=== PATIENT | female | born 1975 | race African-American/Black ===

== ENCOUNTER 2017-12-16 12:53 | Emergency (ER) | payer BC, SELFPAY ==
--- NOTE | 2017-12-16 15:41 | RAD ---
2 VIEWS CHEST: Date: 12/16/17 COMPARISON: 09/24/11. HISTORY: Cough x2 weeks. FINDINGS: Normal cardiac silhouette. Pulmonary vessels are within normal limits. Costophrenic angles are clear. No consolidation or mass. No pneumothorax or osseous abnormalities. IMPRESSION: No acute cardiopulmonary process. POS: [facility]
== END 2017-12-16 14:13 | disposition home or self-care (01) ==
LOC: SCSER 12:53
DX: J32.9 Chronic sinusitis, unspecified (principal); E66.01 Morbid (severe) obesity due to excess calories; L91.0 Hypertrophic scar; R60.0 Localized edema; I10 Essential (primary) hypertension
CPT/HCPCS: 71046; 94664

== ENCOUNTER 2018-04-23 15:47 | Emergency (ER) | payer SELFPAY ==
[2018-04-23] MEDS ORDERED: Ketorolac Tromethamine 30 MG/ML VIAL ONE (17:50)
== END 2018-04-23 18:10 | disposition home or self-care (01) ==
LOC: ERS 15:47
DX: K02.9 Dental caries, unspecified (principal); K04.7 Periapical abscess without sinus; K04.01 Reversible pulpitis; I10 Essential (primary) hypertension; E66.9 Obesity, unspecified
CPT/HCPCS: 96372; J1885

== ENCOUNTER 2018-11-05 14:08 | Inpatient (IN) | payer MEDICAID, SELFPAY ==
[~2018-11-05 14:08] MED LIST: ISOVUE-370 76%-LOCM 1 ML ONE
[2018-11-05] MEDS ORDERED: Ketorolac Tromethamine 30 MG/ML VIAL ONE (14:32)
[2018-11-05 14:43] LABS: #Lymphocytes 1.2 thou/uL (1.20-3.40); #Monocytes 0.7 thou/uL (0.11-0.59); #Neutrophils 11.8 thou/uL (1.40-6.50); %Basophils 0.2 % (0.0-1.0); %Eosinophils 0.1 % (0.0-10.0); %Lymphocytes 8.7 % (21.0-51.0); %Monocytes 5.3 % (0.0-10.0); %Neutrophils 85.7 % (42.0-75.0); Hemoglobin 11.3 g/dL (12.0-16.0); Mean Corpuscular HGB CONC 29.9 g/dL (32.0-36.0); Mean Corpuscular Hemoglobin 22.1 pg (27.0-31.0); Mean Corpuscular Volume 73.8 fL (78.0-98.0); Mean Platelet Volume 10.8 fL (7.4-10.4); Platelet Count 232 thou/uL (130-400); Red Blood Cell (RBC) Count 5.14 mill/uL (4.20-5.40); White Blood Cell (WBC) Count 13.7 thou/uL (4.8-10.8)
[2018-11-05] MEDS ORDERED: cefTRIAXone\\ROCEPHIN 2 GM VIAL ONE (14:49)
[2018-11-05 15:01] LABS: ALT (SGPT) 13 U/L (8-55); AST (SGOT) 26 U/L (5-34); Albumin 3.2 g/dL (3.5-5.0); Alkaline Phosphatase 72 U/L (40-150); Anion Gap 10 mmol/L (10-20); BUN (Urea Nitrogen) 15 mg/dL (7.0-18.7); Bilirubin, Total 0.8 mg/dL (0.2-1.2); Calc. Creatinine Clearance 0 mL/min (70-130); Calcium 8.2 mg/dL (7.8-10.44); Carbon Dioxide 29 mmol/L (22-29); Chloride 96 mmol/L (98-107); Estimated GFR-MDRD 51; Globulin 5.2 g/dL (2.4-3.5); Glucose 118 mg/dL (70-105); Potassium 3.4 mmol/L (3.5-5.1); Protein, Total 8.4 g/dL (6.0-8.3); Sodium 132 mmol/L (136-145)
[2018-11-05 15:02] LABS: Anisocytosis SLIGHT = 6-15 cells (100X) (0-5/hpf); Hypochromia SLIGHT = 6-15 cells (100X) (0-5/hpf); Microcytosis SLIGHT = 6-15 cells (100X) (0-5/hpf); Platelet Morphology Comment Appears Adequate
[2018-11-05] MEDS ORDERED: Azithromycin 500 MG VIAL ONE (15:12)
[2018-11-05 15:24] LABS: CKMB 1.8 ng/mL (0-6.6)
[2018-11-05] MEDS ORDERED: Fentanyl 100 MCG/2 ML VIAL ONE ×2 (15:28→17:42)
--- NOTE | 2018-11-05 15:44 | RAD ---
CHEST ONE VIEW: 11/05/18 HISTORY: Dyspnea. COMPARISON: Radiograph 12/16/17 FINDINGS: There is extensive opacification throughout both lobes, worse in the right lower lobe. Heart size is enlarged. Layering right pleural effusion. No pneumothorax. IMPRESSION: 1. Extensive air space opacity concerning for multifocal pneumonia. Edema is felt less likely. F ollowup after treatment recommended. 2. Marked cardiomegaly. 3. Given the dense opacification in the right lower lobe, close followup radiographs are recomme nded. POS: [facility]
--- NOTE | 2018-11-05 16:09 | PDOC.FPRHP ---
- History of Present Illness Chief Complaint: SOB and cough History of Present Illness: This is a 43 yo female with a pmh of HTN, presumptive BERNICE, and morbid obesity who resents to the ED with a cc of cough and SOB. Pt states the symptoms started on10/24/18 and she was treated with a course of amoxil with no relief. She states that during this time she had multiple episodes of hemoptysis. She states that nothing made her symptoms better or worse. She reports a central chest pain with some radiation to her back. She reports a fever as high as 104 at home. She also reports nausea, vomiting, and diarrhea that have been ongoing for the last 4 days. ED Course: fentanyl 50mcg NS 2L bolus Rocephin 2 g azithromycin 500mg Toradol 30mg Duoneb x1 - Allergies/Adverse Reactions Allergies Allergy/AdvReac Type Severity Reaction Status Date / Time acetaminophen Allergy Verified 11/04/13 05:03 [From Tylenol-Codeine #3] codeine phosphate Allergy Verified 11/04/13 04:57 [From Tylenol-Codeine #3] Penicillins Allergy Verified 11/04/13 05:04 - Home Medications Medication Instructions Recorded Confirmed Type Calcium Carbonate [Calcium] 500 mg PO DAILY 11/04/13 11/04/13 History Furosemide [Lasix] 20 mg PO DAILY 11/04/13 11/04/13 History Ginseng 100 mg PO BID 11/04/13 11/04/13 History Gluc King/Chondro King A/Vit C/Mn 1 cap PO DAILY 11/04/13 11/04/13 History [Glucosamine 1,500 Complex Capsule] Lisinopril/Hydrochlorothiazide 1 tablet PO DAILY 11/04/13 11/04/13 History [Zestoretic] Henderson-3 Fatty Acids [Fish Oil] 300 mg PO DAILY 11/04/13 11/04/13 History traMADol HCl [Tramadol HCl] 1 tab PO Q4HR PRN 11/05/13 11/05/13 History - History PMHx: HTN, obesity, presumed BERNICE PSHx: BTL FHx: noncontributory Social: Denies PHU - Review of Systems General: reports: fever/chills, fatigue. denies: weight/appetite/sleep changes , night sweats Eyes: denies: eye pain, vision changes ENT: denies: nasal congestion, rhinorrhea Respiratory: reports: cough, shortness of breath Cardiovascular: reports: chest pain. denies: palpitation, edema, paroxysmal nocturnal dyspnea Gastrointestinal: reports: nausea, vomiting, diarrhea, abdominal pain. denies: constipation Genitourinary: denies: incontinence, dysuria Skin: reports: lesions (lesion on her posterior head that bleeds occationally). denies: rashes Musculoskeletal: denies: pain, tenderness Neurological: denies: numbness, syncope Psychological: denies: anxiety, depression - Vital signs BP: 105/61 HR: 94 RR: 23 Tmax: 99.1 Pox: 95% on NRB Wt: 180 kg - Physical Exam Constitutional: awake, alert and oriented, other (moderate respiratory distress , morbidly obese) HEENT: normocephalic and atraumatic, EOMI, MMM, other (fusiform growth on the back of pt head, not ttp, no active bleeding) Neck: FROM, trachea midline, no JVD Chest: no lesions, other (mild tenderness to palpation) Heart: RRR, normal S1/S2, no murmurs/rubs/gallops -Lungs: Diffuse crackles, greater on the right lung soto Abdomen: soft, bowel sounds present, no masses/distention, other (mild ttp) Musculoskeletal: normal structure, ROM grossly normal Neurological: no focal deficit Skin: good turgor, capillary refill <2 seconds Heme/Lymphatic: no unusual bruising or bleeding, no purpura Psychiatric: other (somnolent with brief episodes of unresponsiveness) FMR H&P: Results - Labs Result Diagrams: 11/05/18 14:23 11/05/18 14:23 Lab results: WBC 13.7 thou/uL (4.8-10.8) H 11/05/18 14:23 Hgb 11.3 g/dL (12.0-16.0) L 11/05/18 14:23 Hct 37.9 % (36.0-47.0) 11/05/18 14:23 MCV 73.8 fL (78.0-98.0) L 11/05/18 14:23 Plt Count 232 thou/uL (130-400) 11/05/18 14:23 Neutrophils % 85.7 % (42.0-75.0) H 11/05/18 14:23 Sodium 132 mmol/L (136-145) L 11/05/18 14:23 Potassium 3.4 mmol/L (3.5-5.1) L 11/05/18 14:23 Chloride 96 mmol/L (98-107) L 11/05/18 14:23 Carbon Dioxide 29 mmol/L (22-29) 11/05/18 14:23 BUN 15 mg/dL (7.0-18.7) 11/05/18 14:23 Creatinine 1.37 mg/dL (0.6-1.1) H 11/05/18 14:23 Glucose 118 mg/dL (70-105) H 11/05/18 14:23 Lactic Acid 1.8 mmol/L (0.5-2.2) 11/05/18 14:23 Calcium 8.2 mg/dL (7.8-10.44) 11/05/18 14:23 Total Bilirubin 0.8 mg/dL (0.2-1.2) 11/05/18 14:23 AST 26 U/L (5-34) 11/05/18 14:23 ALT 13 U/L (8-55) 11/05/18 14:23 Alkaline Phosphatase 72 U/L (40-150) 11/05/18 14:23 CK-MB (CK-2) 1.8 ng/mL (0-6.6) 11/05/18 14:23 B-Natriuretic Peptide 678.0 pg/mL (0-100) H 11/05/18 14:23 Serum Total Protein 8.4 g/dL (6.0-8.3) H 11/05/18 14:23 Albumin 3.2 g/dL (3.5-5.0) L 11/05/18 14:23 - Radiology Interpretation CT scan - chest Status: report reviewed by me (1. Markedly suboptimal evaluation due to body habitus, beam attenuation, poor timing of contrast bolus and motion degradation. 2. Bilateral groundglass opacities with perihilar and lower lobe consolidation with associated air bronchograms. Correlate for edema versus atypical infection. 3. No obvious pulmonary arterial embolism involving the central pulmonary arteries. Remainder of the pulmonary arterial system cannot be adequately assessed) Chest x-ray Status: image reviewed by me, report reviewed by me (extensive air space opacity concerning for multifocal pna. Marked cardiomegaly) FMR H&P: A/P - Problem List (1) Sepsis Current Visit: Yes Status: Acute Code(s): A41.9 - SEPSIS, UNSPECIFIED ORGANISM (2) CAP (community acquired pneumonia) Current Visit: Yes Status: Acute Code(s): J18.9 - PNEUMONIA, UNSPECIFIED ORGANISM (3) Elevated brain natriuretic peptide (BNP) level Current Visit: Yes Status: Acute Code(s): R79.89 - OTHER SPECIFIED ABNORMAL FINDINGS OF BLOOD CHEMISTRY (4) Respiratory acidosis Current Visit: Yes Status: Acute Code(s): E87.2 - ACIDOSIS (5) BERNICE (obstructive sleep apnea) Current Visit: Yes Status: Acute Code(s): G47.33 - OBSTRUCTIVE SLEEP APNEA ( ADULT) (PEDIATRIC) (6) CHERI (acute kidney injury) Current Visit: Yes Status: Acute Code(s): N17.9 - ACUTE KIDNEY FAILURE, UNSPECIFIED - Plan This is a 43 yo female with a pmh of HTN, presumptive BERNICE, and morbid obesity Sepsis 2/2 CAP with acute hypoxic, hypercapnic respiratory failure -Admit to IMCU -Maintain O2 sats -S/p 2L NS, continue fluids to maintain BP -Obtain ABG -WBC elevated -Broad spectrum abx (/) -CTA negative for large PE -Pending Urine strep and legionella -Negative procal Elevated troponin -Likely demand ischemia, will trend CHERI -Likely 2/2 sepsis, will trend with BMP -IVFs Hyponatremia -Atypical pna vs edema Hypokalemia -Replace and monitor Code: Full Prophylaxis: Lovenox and pepcid Family: father at bedside, plan discussed with him Diet: NPO Disposition: home in 3-4 days PCP: pt reports [facility] FMR H&P: Upper Level - Pertinent history Pt is a 43 yo F w/ PMH of HTN HLD and morbid obesity who presents w/ 10 day h/o productive cough and fever reported up to 104 at home. Pt received amoxicillin and albuterol OP for presumed bronchitis vs CAP; however, had no resolution of symptoms. She reports associated hemoptysis, pleuritic type chest pain, NV and dneies diarrhea constipation. Denies URI type symptoms. She received rocephin and azithromycin in the ED in addition to 2L NS. ROS: Pertienent positives and negatives listed above, for complete ROS see equine intern documentation. - Pertinent findings PE: Gen: mild distress, febrile HEENT: NCAT, large keloid posterior head CV: Tachycardic, regular rhythm, distant heart sounds Lungs: Expiratory wheezes throughout with crackles in b/l lower lobes in addition to rt middle lobe, mildly increased WOB Abd: BSX4, NTND, no rebound guarding or rigidity Extremities: No edema, no clubbing, no cyanosis Neuro: No focal deficit Psych: Alert, cooperative - Plan Date/Time: 11/05/18 1608 ICasey, DO, have evaluated this patient and agree with findings/ plan as outlined by equine intern resident. Pertinent changes/additions are listed here. 1) Sepsis 2/2 CAP: pt hase elevated WBC w/ left shift and ct scan/CXR suggestive of multifocal pneumonia. RR >20, HR> 90. Will admit to IMCU and obtain blood gas. Pt is currently requiring 4L NC to maintain saturations. Procalcitonin negative raising concern of atypical pna. Will provide atypical coverage with azithromycin in addition to vanc and zosyn 2/2 previous abx use. Check ur strep and legionella Ag. Of note pt had an elevated D dimer and subsequent ct angio which showed no evidence of PE. 2) Elevated troponin: this is likely 2/2 demand ischemia from her sepsis, will trend. echo pending. EKG showed sinus tach, otherwise normal. 3) Elevated BNP: likely failure 2/2 longstanding HTN. Will order echo. 4) CHERI: pt cr increased compared to prior, likely 2/2 sepsis. Pt given 2LNS in ED and currently on 250mls/hr NS. Continue IVF resuscitation and trend BMP 4) Hyponatremia: - possibly 2/2 atypical pneumonia vs edema 5) Hypokalemia: mild, replace. Check mag GI PPX: Pepcid DVT PPX: Lovenox Code status: full Dispo: serious, will cont broad spectrum abx and IVF resuscitation. Blood cultures pending. ABG pending.
--- NOTE | 2018-11-05 16:42 | CT ---
FExam: CT angiogram of the chest HISTORY: Dyspnea COMPARISON: None TECHNIQUE: CT angiogram of the chest is performed in the axial plane. Three-dimensional reformatted i mages are submitted for interpretation FINDINGS: Mediastinum: No mass, lymphadenopathy or hematoma. HEART: Normal size. No significant pericardial fluid. Aorta: Grossly unremarkable. No evidence of aneurysm or dissection. Upper solid abdominal viscera: Grossly unremarkable. Limited evaluation. Trachea and central bronchi: Patent Pleural spaces: No effusion Lung parenchyma: Bilateral groundglass opacities along with consolidation with air bronchograms in th e perihilar and lower lobe distribution (right greater than left). Correlate for edema versus infecti on. Pneumothorax: None Osseous structures: No lytic or blastic lesions Pulmonary arteries:Markedly suboptimal evaluation due to body habitus and timing of contrast bolus. A dequate central pulmonary arterial opacification. No filling defect in the central arteries. The loba r, segmental and subsegmental arteries cannot be adequately assessed. IMPRESSION: 1. Markedly suboptimal evaluation due to body habitus, beam attenuation, poor timing of contrast juana us and motion degradation. 2. Bilateral groundglass opacities with perihilar and lower lobe consolidation with associated air b ronchograms. Correlate for edema versus atypical infection. 3. No obvious pulmonary arterial embolism involving the central pulmonary arteries. Remainder of the pulmonary arterial system cannot be adequately assessed.
[2018-11-05 17:02] LABS: Actual Bicarbonate (HCO3a) 26.2 mEq/L (22-28); Base Excess (BEa) -2.6 mEq/L (-2.0 to +3.0); Calcium, Ionized 1.04 mmol/L (1.12-1.30); Carboxyhemoglobin (COHb) 1.4 gm% (0.0-3.0); Hemoglobin (Hb) 11.4 g/dL (12.0-16.0); O2 Tension (PaO2) 82.2 mmHg (80.0-100.0); Potassium - ABG Lab 3.55 mmol/L (3.70-5.30)
[2018-11-05] MEDS ORDERED: Acetaminophen 325 MG TAB PO PRN (17:04)
[2018-11-05] MEDS ORDERED: Ondansetron ODT 4 MG TAB PO PRN (17:04)
[2018-11-05] MEDS ORDERED: Ondansetron PF 4 MG/2 ML Vial IVP PRN (17:04)
[2018-11-05 17:09] LABS: pH, Arterial 7.21 (7.35-7.45)
[2018-11-05 17:11] LABS: ALV-art Gradient 547.675 (0-20); CO2 Tension 66.5 mmHg (35.0-45.0); Puncture Site RRA
[2018-11-05] MEDS ORDERED: CCU Electrolyte Replacement 1 EACH FS ONE (17:31)
[2018-11-05] MEDS ORDERED: Ventilator Sedation Protocol 1 EACH FS ONE (17:31)
[2018-11-05] MEDS ORDERED: DISCONTINUE PREVIOUS NARCOTIC PAIN MEDICATIONS AND BENZODIAZEPINES FS SCH (17:37)
[2018-11-05] MEDS ORDERED: Morphine 2 MG/ML SYRINGE SLOW IVP PRN (17:37)
[2018-11-05] MEDS ORDERED: Fentanyl BOLUS 250 ML IVPB PRN (17:37)
[2018-11-05] MEDS ORDERED: Potassium Phosphate 15 MMOL in Sodium Chloride 0.9% 250 ML 250 ML IV PRN (17:38)
[2018-11-05] MEDS ORDERED: Potassium Chloride 40 MEQ in Sodium Chloride 0.9% 250 ML 250 ML IVPB PRN (17:38)
[2018-11-05] MEDS ORDERED: PHOS-NAK 1 PKT PACK PO PRN ×2 (17:38)
[2018-11-05] MEDS ORDERED: Potassium Chloride 40 MEQ in Premix Bag 1 BAG IVPB PRN (17:38)
[2018-11-05] MEDS ORDERED: Potassium Phosphate 12 MMOL in Sodium Chloride 0.9% 250 ML 250 ML IV PRN (17:38)
[2018-11-05] MEDS ORDERED: CCU ELECTROLYTE REPLACEMENT PROTOCOL FS PRN (17:38)
[2018-11-05] MEDS ORDERED: Potassium Phosphate 9 MMOL in Sodium Chloride 0.9% 100 ML IVPB PRN (17:38)
[2018-11-05] MEDS ORDERED: Magnesium 2 GM/50 ML 2 GM in Premix Bag 1 BAG IVPB PRN (17:38)
[2018-11-05] MEDS ORDERED: Potassium Chloride 20 MEQ TAB PO PRN (17:38)
[2018-11-05] MEDS ORDERED: Magnesium Oxide 400 MG TAB PO PRN ×2 (17:38)
[2018-11-05] MEDS: Propofol 1,000 MG/100 ML VIAL IV PRN ×2 (17:49→21:40)
[2018-11-05] MEDS ORDERED: Vecuronium 10 MG VIAL IVP PRN (18:13)
[2018-11-05] MEDS: Piperacillin/Tazobactam 3.375 GM in Sodium Chloride 0.9% 100 ML IVPB SCH ×2 (18:30→23:53)
[2018-11-05] MEDS: Sodium Chloride 0.9% 1,000 ML IV SCH ×2 (18:38→23:18)
--- NOTE | 2018-11-05 18:54 | PDOC.EVN ---
Event Note - Event Note Event Note: Pt ABG showed acute hypercapnic respiratory failure and BiPAP was started. Pt subsequently became somnolent and difficult to arouse in IMCU, as such decision was made to intubate and transfer to ICU. She was placed on VC ventilation @ 500mL with pSupp of 15, PEEP 5 and FiO2 40%, saturations increased to 95%. Sedation with propofol as BP tolerates.
[2018-11-05 19:09] LABS: Actual Bicarbonate (HCO3a) 25.1 mEq/L (22-28); Base Excess (BEa) -1.2 mEq/L (-2.0 to +3.0); CO2 Tension 49.3 mmHg (35.0-45.0); Calcium, Ionized 1.03 mmol/L (1.12-1.30); Carboxyhemoglobin (COHb) 1.1 gm% (0.0-3.0); Hemoglobin (Hb) 11.1 g/dL (12.0-16.0); O2 Tension (PaO2) 121.8 mmHg (80.0-100.0); Potassium - ABG Lab 3.69 mmol/L (3.70-5.30); pH, Arterial 7.33 (7.35-7.45)
[2018-11-05 19:10] LABS: Puncture Site LRADIAL
[2018-11-05 19:11] LABS: ALV-art Gradient 529.575 (0-20)
[2018-11-05 20:05] LABS: HIV (1/2) Antibody/Antigen Non-Reactive (NonReactive); HIV 1/2 INDEX 0.14 S/CO (<1.00)
[2018-11-05] MEDS: Enoxaparin Sodium 40 MG/0.4 ML SYRINGE SC SCH (21:35)
[2018-11-05] MEDS: Famotidine/PF 20 mg/2ml Vial SLOW IVP SCH (21:36)
--- NOTE | 2018-11-05 21:44 | PDOC.EVN ---
Event Note - Event Note Event Note: Attending Note Patient seen by Dr Dixon later this afternoon at time of admission to [facility]. Patient subsequently intubted and transferred to ICU. Patient seen and examined. She is stable on vent currently. Care reviewed with Nurse and RT.
--- NOTE | 2018-11-05 22:30 | CON ---
DATE OF CONSULTATION: 11/05/2018 CONSULT PHYSICIAN: [facility]. REASON FOR CONSULTATION: Bilateral pneumonia and acute hypoxic respiratory failure. HISTORY OF THE PRESENT ILLNESS: The patient is a 43-year-old female who presented to the emergency room earlier today with total body aches, fever up to 104, diarrhea, cough and congestion. She was apparently doing okay in the ER initially. However, there is a note that she was on 100% non-rebreather by the time she was transferred from the ER up to the IMCU. I was called to see her when she was in the IMCU. The residents had gotten a blood gas, which showed hypercapnia and hypoxemia. At that time, I requested that the patient be emergently moved to the CCU. When I arrived a few minutes later, the patient was still in the IMCU. She would awaken, but was not very conversant. Within 5 minutes of me being on the floor, she had a spell where she desaturated down into the 70s and her eyes rolled back in her head, although she quickly regained consciousness after that. We then moved her down to the CCU where I intubated her emergently with the bronchoscope. PAST MEDICAL HISTORY: 1. Hypertension. 2. Obesity. PAST SURGICAL HISTORY: Tubal ligation. PSYCHIATRIC HISTORY: Unremarkable. SOCIAL HISTORY: The patient does not drink alcohol, apparently does not smoke. Does not use illicit drugs. FAMILY MEDICAL HISTORY: Unknown. ALLERGIES: APPARENTLY CODEINE CAUSES ISSUES. PENICILLIN HAS BEEN REPORTED CAUSING HIVES IN THE PAST. HOWEVER, SHE WAS TAKING AMOXICILLIN AN OUTPATIENT WITHOUT ADVERSE EFFECT. HOME MEDICATIONS: 1. Albuterol. 2. Amoxicillin. REVIEW OF SYSTEMS: Cannot be obtained as the patient is currently intubated. PHYSICAL EXAMINATION: VITAL SIGNS: Pulse is 88, blood pressure 128/78, O2 saturation 98% after intubation, respiratory rate 20. This is a morbidly obese female, who is now intubated and sedated. HEENT: She has muddy sclera. Oropharynx has class 4 Mallampati airway. NECK: No adenopathy or JVD. LUNGS: She has coarse breath sounds bilaterally. CARDIAC: S1, S2. Tachycardic. ABDOMEN: Soft, obese, nontender, and nondistended. EXTREMITIES: No clubbing or cyanosis. She has brawny edema throughout. LABORATORY DATA: Sodium 132, potassium 3.4, chloride 96, CO2 of 29, BUN 15, creatinine 1.4, glucose 118, lactate 1.8, AST 26, ALT 13. Troponin 0.126. BNP 678. Procalcitonin 0.24. Albumin 3.2. White blood count of 13.7, hematocrit 37.9, and platelet count 232. D-dimer was 1.28. ABG before intubation, pH 7.21, pCO2 of 66, pO2 of 82 and that was on 100% nonrebreather. IMAGING: CT of the chest shows diffuse bilateral infiltrates predominantly in the lower lobes. She has air bronchograms, concentrate in the right lower lobe. I do not see any filling defects consistent with central pulmonary emboli. Flu test was negative. ASSESSMENT: 1. Acute hypoxic and hypercapnic respiratory failure secondary to bilateral pneumonia. 2. Sepsis syndrome. 3. Morbid obesity. 4. Mild kidney dysfunction, which is acute. 5. Hypoalbuminemia. RECOMMENDATION: This patient was in clear hypoxic and hypercapnic respiratory failure with bilateral pulmonary infiltrates consistent with pneumonia. The hypoxia and pulmonary infiltrates is in itself a contraindication of BiPAP therapy as she has a high risk for decompensation. The patient was brought down to the CCU. I immediately intubated her with a 7.5 endotracheal tube over a bronchoscope. See separate operative note. She has been placed on Zosyn, vancomycin, and Zithromax. She will be on Pepcid for DVT prophylaxis and Lovenox for GI prophylaxis. She may require more copious IV fluids given that she is young and has pneumonia. I think it is prudent to check an HIV test. Follow serial ABGs. The above encompassed 35 minutes critical time. Job ID: [id number]
--- NOTE | 2018-11-06 00:01 | OP ---
DATE OF PROCEDURE: 11/05/2018 PROCEDURE PERFORMED: Bronchoscopy with endotracheal intubation. PREOPERATIVE DIAGNOSES: Respiratory failure with bilateral pulmonary infiltrates. POSTOPERATIVE DIAGNOSES: Respiratory failure with bilateral pulmonary infiltrates. ANESTHESIA: None. DESCRIPTION OF PROCEDURE: The procedure was done on an emergent basis as the patient was impending hypoxic respiratory failure. A bite block was placed in the patient's mouth. A 2.2 Ambu bronchoscope was placed in the patient's oropharynx with endotracheal tube over the bronchoscope. The vocal cords were identified and the scope was passed through the cords. A 7.5 endotracheal tube was then passed into the patient's trachea and secured about 3 cm above the darrell. The patient was then placed on bag endotracheal tube intubation. The scope was replaced into the endotracheal tube. A bronchoalveolar lavage was performed with about 150 mL normal saline in the right middle lobe. This was sent for appropriate studies. Bronchoscopic findings included mild mucus production present in all lobes bilaterally. She had some occasional bloody secretions present in the lower lobes. She had very edematous airways bilaterally. There were no endobronchial lesions noted otherwise. This procedure was tolerated well. Job ID: [id number]
[2018-11-06 00:18] LABS: Troponin I 0.085 ng/mL (< 0.028)
[2018-11-06 01:44] LABS: Legionella Urinary Ag Negative (Negative); Strep pneumo Urine Ag NEGATIVE (NEGATIVE)
[2018-11-06] MEDS: Piperacillin/Tazobactam 3.375 GM in Sodium Chloride 0.9% 100 ML IVPB SCH ×3 (06:07→17:37)
[2018-11-06] MEDS: Propofol 1,000 MG/100 ML VIAL IV PRN ×7 (06:07→22:28)
[2018-11-06] MEDS: Sodium Chloride 0.9% 1,000 ML IV SCH (06:09)
[2018-11-06 06:24] LABS: Anisocytosis SLIGHT = 6-15 cells (100X) (0-5/hpf); Band 31 % (5-11); Hemoglobin 9.9 g/dL (12.0-16.0); Lymphocytes 15 % (21-51); MDiff Complete? YES; Mean Corpuscular HGB CONC 29.9 g/dL (32.0-36.0); Mean Corpuscular Hemoglobin 22.3 pg (27.0-31.0); Mean Corpuscular Volume 74.4 fL (78.0-98.0); Mean Platelet Volume 6.7 fL (7.4-10.4); Monocytes 1 % (0-10); Neutrophil 53 % (42-75); Nucleated RBC 1 % (0); Ovalocytes SLIGHT = 2-5 cells (100X) (0-1/hpf); Platelet Count 189 thou/uL (130-400); Platelet Morphology Comment Appears Adequate; RBC Distribution Width 18.2 % (11.5-14.5); Red Blood Cell (RBC) Count 4.43 mill/uL (4.20-5.40); White Blood Cell (WBC) Count 17.9 thou/uL (4.8-10.8)
[2018-11-06 06:43] LABS: Chloride 102 mmol/L (98-107); Potassium 3.6 mmol/L (3.5-5.1); Sodium 135 mmol/L (136-145)
[2018-11-06 06:44] LABS: Calcium 7.4 mg/dL (7.8-10.44); Glucose 112 mg/dL (70-105)
[2018-11-06] MEDS ORDERED: Lactated Ringer's 1,000 ML IV SCH (06:45)
[2018-11-06 06:46] LABS: Anion Gap 12 mmol/L (10-20); Carbon Dioxide 25 mmol/L (22-29)
[2018-11-06 06:48] LABS: BUN (Urea Nitrogen) 15 mg/dL (7.0-18.7); Calc. Creatinine Clearance 174 mL/min (70-130); Estimated GFR-MDRD 60
[2018-11-06 07:06] LABS: Actual Bicarbonate (HCO3a) 21.7 mEq/L (22-28); Base Excess (BEa) -3.1 mEq/L (-2.0 to +3.0); CO2 Tension 38.2 mmHg (35.0-45.0); Calcium, Ionized 1.05 mmol/L (1.12-1.30); Carboxyhemoglobin (COHb) 0.6 gm% (0.0-3.0); Hemoglobin (Hb) 10.4 g/dL (12.0-16.0); O2 Tension (PaO2) 146.7 mmHg (80.0-100.0); Potassium - ABG Lab 3.39 mmol/L (3.70-5.30); Puncture Site LRA; pH, Arterial 7.37 (7.35-7.45)
[2018-11-06] MEDS ORDERED: Dextrose 5% in Water 1,000 ML IV PRN (07:41)
[2018-11-06] MEDS ORDERED: Dextrose 50% Abboject 50 ML SYRINGE SLOW IVP PRN (07:41)
--- NOTE | 2018-11-06 07:44 | RAD ---
FPortable chest radiograph: 11/06/2018 COMPARISON: 11/05/2018 HISTORY:Pneumonia FINDINGS: New endotracheal tube and nasogastric tube in proper position. Stable prominence of the car diac silhouette. There is dense opacity in the medial left base suggesting left lower lobe consolidat ion/collapse and probable left pleural fluid. Aeration has worsened significantly within the left bas e. Persistent dense airspace disease noted with obscuration of right hemidiaphragm, right heart border, and right costophrenic angle, slightly worsened as well. Probable associated right pleural fluid. IMPRESSION: Worsening bibasilar pleural and parenchymal opacity. New endotracheal tube and nasogastri c tube. Findings may be related to worsening pulmonary edema, infectious pneumonitis, and/or aspirati on.
--- NOTE | 2018-11-06 08:04 | PRG ---
DATE OF SERVICE: 11/06/2018 TIME SPENT: 35 minutes of critical time. SUBJECTIVE: This patient remains intubated on mechanical ventilation. She has remained severely hypoxemic overnight. OBJECTIVE: VITAL SIGNS: Her temperature is 100.3 with a T-max of 101.2, pulse is 78, blood pressure is 102/52, O2 saturation in the high 90s, currently on 45% FiO2 with a PEEP of 12. Intake for 24 hours 2226, output 670. GENERAL: She is intubated and sedated. HEENT: Otherwise unremarkable. NECK: No JVD. LUNGS: Coarse breath sounds with wheezing bilaterally. CARDIAC: S1, S2. Tachycardic. ABDOMEN: Soft, obese, nontender, and nondistended. EXTREMITIES: No clubbing, cyanosis, or edema. LABORATORY DATA: Sodium 135, potassium 3.6, chloride 102, CO2 of 25, BUN 15, creatinine 1.2, glucose 112, calcium 7.4. Troponin 0.085. HIV test was negative. PH of 7.37, pCO2 of 38, pO2 of 146 on SIMV rate 22, tidal volume of 400, PEEP 5, pressure support 10, FiO2 100%. White blood cell count 17.9, hematocrit 33, platelet count 189. Chest x-ray shows bilateral infiltrates right greater than left. ASSESSMENT: 1. Bilateral community-acquired pneumonia. 2. Bronchospasm. 3. Acute hypoxic and hypercapnic respiratory failure, requiring mechanical ventilation. 4. Morbid obesity. 5. Sepsis syndrome. 6. Mild renal azotemia. PLAN: 1. The patient remains critically ill and is in need of continued mechanical ventilation. She is not weanable. 2. I have adjusted mechanical ventilation settings. 3. Add steroids because of bronchospasm. 4. Continue the IV antibiotics. 5. Reduce IV fluids. 6. Initiate enteral tube feeds. 7. DVT prophylaxis with Lovenox. 8. GI prophylaxis with Pepcid or Protonix. Job ID: [id number]
--- NOTE | 2018-11-06 08:32 | HP ---
I examined this patient on 11/05/2018 at approximately 3:45 p.m. in the ER. At that time, her blood pressure was 126/52, pulse rate 94, respirations 16, and her O2 saturation was 100% on a non-rebreather. I discussed the case with Dr. Best and I agree with his assessment and plan. Briefly, Ms. Shetty is a pleasant but obese 43-year-old black female, who presented to the emergency room with cough and history of fever to 104. Our working diagnosis initially was pneumonia. PHYSICAL EXAMINATION: GENERAL: When I examined the patient, she was awake, alert, and speaking in full sentences. EAR, NOSE, AND THROAT: No erythema or exudate. NECK: Supple. CARDIAC: Heart rhythm was regular. No gallop or murmur noted. LUNGS: Breath sounds were diminished, but clear without wheezes. There was no use of accessory muscles. ABDOMEN: Flat and soft. No guarding, rebound, or rigidity noted. EXTREMITIES: Trace edema. No evidence of DVT. LABORATORY DATA: Initially, her CBC; white count was 13,700, hemoglobin 11.3, hematocrit 37.9 with an MCV of 73.8. Chemistries; sodium was 132, potassium 3.4, chloride 96, bicarb 29, BUN 15, and creatinine 1.37. Liver enzymes are normal. Troponin was 0.126. Her BNP was 678. IMAGING DATA: Chest x-ray showed extensive airspace opacity concerning for multifocal pneumonia. There was also a marked cardiomegaly. ASSESSMENT: Pneumonia. PLAN: The patient will be admitted to the MICU. She is currently on a 100% non-rebreather. I am concerned that she may tire and we need to keep close observation on her. She may later need BiPAP or even mechanical ventilation. In the event currently, she is stable on 100% non-rebreather. We will continue to monitor closely. She is currently on her way to x-ray for a CTA of the chest. Job ID: [id number]
[2018-11-06] MEDS: Lactated Ringer's 1,000 ML IV SCH ×2 (08:36→17:38)
[2018-11-06] MEDS: Enoxaparin Sodium 40 MG/0.4 ML SYRINGE SC SCH ×2 (08:47→19:51)
[2018-11-06] MEDS: Famotidine/PF 20 mg/2ml Vial SLOW IVP SCH ×2 (08:47→19:52)
--- NOTE | 2018-11-06 10:22 | PDOC.FM ---
- Subjective Subjective: Pt remains intubated in ICU with FiO2 weaned down to 45%. She is currently sedated. - Objective MAR Reviewed: Yes Vital Signs & Weight: Vital Signs (12 hours) Temp Pulse Resp BP Pulse Ox 11/06/18 08:00 100.6 F H 22 H 99 11/06/18 06:51 73 93/43 L 11/06/18 06:48 77 22 H 99 11/06/18 06:00 22 H 11/06/18 04:00 100.3 F H 22 H 11/06/18 02:14 94 142/88 H 11/06/18 02:00 22 H 11/06/18 00:14 80 22 H 100 11/06/18 00:00 101.2 F H 22 H Weight Weight 180.586 kg Most Recent Monitor Data Heart Rate from ECG 81 NIBP 120/67 NIBP BP-Mean 84 Respiration from ECG 22 SpO2 99 I&O: 11/05/18 11/06/18 11/07/18 06:59 06:59 06:59 Intake Total 2226 Output Total 670 130 Balance 1556 -130 Result Diagrams: 11/06/18 05:11 11/06/18 06:15 Phys Exam - Physical Examination Constitutional: NAD HEENT: moist MMs ET and OG tube in place trach midline, ET tube in place, morbidly obese expiratory wheezes through ant crackles in b/l bases Cardiovascular: RRR, no significant murmur Gastrointestinal: soft, non-tender, no distention Morbidly obese Musculoskeletal: no edema, pulses present sedated Skin: no rash, cap refill <2 seconds Dx/Plan (1) Acute respiratory failure with hypoxia and hypercapnia Code(s): J96.01 - ACUTE RESPIRATORY FAILURE WITH HYPOXIA; J96.02 - ACUTE RESPIRATORY FAILURE WITH HYPERCAPNIA Status: Acute (2) Sepsis Code(s): A41.9 - SEPSIS, UNSPECIFIED ORGANISM Status: Acute (3) CHERI (acute kidney injury) Code(s): N17.9 - ACUTE KIDNEY FAILURE, UNSPECIFIED Status: Acute (4) CAP (community acquired pneumonia) Code(s): J18.9 - PNEUMONIA, UNSPECIFIED ORGANISM Status: Acute (5) Elevated brain natriuretic peptide (BNP) level Code(s): R79.89 - OTHER SPECIFIED ABNORMAL FINDINGS OF BLOOD CHEMISTRY Status : Acute - Plan Plan: 1) Acute hypoxic hypercapnic failure: - pt remains intubated VC @ 500, Psupp 10, PEEP 12, FiO2 45% and sattingwell - titrate FiO2 as tolerated, pulm following, appreciate recs 2) Sepsis 2/2 pneumonia: - cxr showed multifocal pna - will continue broad spectrum abx including vanc/zosyn. Cont azithromycin for atypical coverage - procal negative, atypical infection possible - repeat procal tomorrow 3) CHERI: - pt had elevated cr compared to previous visits - s/p 2LNS - UOP approx 30mls/hr - consider increase in fluids vs 500mL bolus and monitor UOP - Cr has trended down 4) Elevated BNP - echo pending - given morbid obesity and long standing HTN likely failure - await echo results - monitor volume status too ensure adequate IVF resuscitation 5) Hyponatremia: - stable, monitor 6) Hypokalemia: replace - mag WNL Dispo: critical, continue ventilator support and broad spectrum abx. Steroids started today per pulm. Addendum - Attending - Attending Attestation Date/Time: 11/06/18 0922 I personally evaluated the patient and discussed the management with Dr. Velázquez. I agree with the History, Examination, Assessment and Plan documented above with any addition or exceptions noted below. Patient remains on vent but FiO2 has been weaned overnight. Urine output is poor likely 2/2 infection. Monitoring CHERI. Continue broad spectrum antibiotics , nebs. She has diffuse wheezing this morning.
[2018-11-06] MEDS: methylPREDNISolone Sod Succ 40 MG VIAL IVP SCH ×2 (11:24→17:37)
[2018-11-06] MEDS: Azithromycin 500 MG in Sodium Chloride 0.9% 250 ML 250 ML IVPB SCH (15:42)
[2018-11-06] MEDS: Lorazepam 2 MG/ML VIAL SLOW IVP PRN (15:50)
[2018-11-07] MEDS: Piperacillin/Tazobactam 3.375 GM in Sodium Chloride 0.9% 100 ML IVPB SCH ×2 (00:34→05:01)
[2018-11-07] MEDS: methylPREDNISolone Sod Succ 40 MG VIAL IVP SCH ×4 (00:34→18:02)
[2018-11-07] MEDS: Propofol 1,000 MG/100 ML VIAL IV PRN ×6 (02:10→21:42)
[2018-11-07 05:04] LABS: Anion Gap 12 mmol/L (10-20); BUN (Urea Nitrogen) 14 mg/dL (7.0-18.7); Calc. Creatinine Clearance 262 mL/min (70-130); Calcium 7.8 mg/dL (7.8-10.44); Carbon Dioxide 23 mmol/L (22-29); Chloride 107 mmol/L (98-107); Estimated GFR-MDRD Greater than 90; Glucose 137 mg/dL (70-105); Sodium 138 mmol/L (136-145)
[2018-11-07] MEDS: Lactated Ringer's 1,000 ML IV SCH (05:09)
[2018-11-07 05:10] LABS: Band 20 % (5-11); Hemoglobin 9.5 g/dL (12.0-16.0); Lymphocytes 9 % (21-51); MDiff Complete? YES; Mean Corpuscular HGB CONC 30.9 g/dL (32.0-36.0); Mean Corpuscular Volume 74.3 fL (78.0-98.0); Mean Platelet Volume 6.3 fL (7.4-10.4); Neutrophil 71 % (42-75); Platelet Count 176 thou/uL (130-400); RBC Distribution Width 17.9 % (11.5-14.5); Red Blood Cell (RBC) Count 4.12 mill/uL (4.20-5.40); White Blood Cell (WBC) Count 10.7 thou/uL (4.8-10.8)
[2018-11-07 06:45] LABS: Actual Bicarbonate (HCO3a) 24.1 mEq/L (22-28); Base Excess (BEa) -0.1 mEq/L (-2.0 to +3.0); CO2 Tension 37.5 mmHg (35.0-45.0); Calcium, Ionized 1.13 mmol/L (1.12-1.30); Carboxyhemoglobin (COHb) 1.2 gm% (0.0-3.0); Hemoglobin (Hb) 10.6 g/dL (12.0-16.0); O2 Tension (PaO2) 63.7 mmHg (80.0-100.0); Potassium - ABG Lab 3.94 mmol/L (3.70-5.30); pH, Arterial 7.43 (7.35-7.45)
[2018-11-07 06:47] LABS: ALV-art Gradient 103.325 (0-20); Puncture Site LRA
[2018-11-07] MEDS ORDERED: Furosemide 40 MG/4 ML VIAL SLOW IVP SCH (07:45)
--- NOTE | 2018-11-07 08:10 | RAD ---
PORTABLE CHEST: Comparison: Prior day's study. History: Pneumonia. FINDINGS: Heart size is enlarged. Endotracheal and NG tubes are in satisfactory position. Parenchymal lung schmitz ges are stable. IMPRESSION: Stable chest. POS: IVA
--- NOTE | 2018-11-07 08:15 | PRG ---
DATE OF SERVICE: 11/07/2018 35 minutes critical care time. SUBJECTIVE: The patient remains intubated on mechanical ventilation. Continues to require high levels of PEEP. OBJECTIVE: VITAL SIGNS: Temperature 97.6, pulse 51, blood pressure 123/83, O2 saturation in the low 90s. A 24-hour intake 5941, output 2900. Over the last 2 days, she has had about 8 L in and approximately 3-1/2 L out. Weight currently 398 pounds. GENERAL: She is intubated and sedated. HEENT: Unremarkable. NECK: No JVD. LUNGS: Wheezes with rhonchi bilaterally. CARDIAC: S1 and S2. Regular. ABDOMEN: Obese, soft. EXTREMITIES: Edematous. LABORATORY DATA: Sodium 138, potassium 4.0, chloride 107, CO2 23, BUN 14, creatinine 0.7 glucose 137. PH 7.43, pCO2 of 37, pO2 of 63 on SIMV rate 22, tidal volume 400, PEEP 12, pressure support 10, FiO2 30%. White blood cell count 10.7, hematocrit 30.6, and platelet count 176. BAL demonstrated multiple organisms including gram-positive cocci in pairs and clusters, gram-positive rods, gram-negative rods. ASSESSMENT: 1. Acute respiratory failure, requiring mechanical ventilation. 2. Multilobar pneumonia, which is bilateral. 3. Fluid overload. 4. Obesity. 5. Improved renal dysfunction. PLAN: 1. Adjust ventilator rate. 2. Stop IV fluids and diuresis. 3. I would add vancomycin back to the antibiotic regimen since gram-positive clusters were seen on the Gram stain. 4. Continue enteral tube feeds. Job ID: [id number]
[2018-11-07] MEDS: Famotidine/PF 20 mg/2ml Vial SLOW IVP SCH ×2 (08:28→21:46)
[2018-11-07] MEDS: Enoxaparin Sodium 40 MG/0.4 ML SYRINGE SC SCH ×2 (08:29→21:46)
[2018-11-07] MEDS ORDERED: Vancomycin HCl 2.5 GM in Sodium Chloride 0.9% 500 ML IVPB SCH (09:00)
--- NOTE | 2018-11-07 09:09 | PDOC.FM ---
- Subjective Subjective: No changes overnight. Continues sedation and ventilatory support. - Objective Vital Signs & Weight: Vital Signs (12 hours) Temp Pulse Resp BP Pulse Ox 11/07/18 08:00 23 H 90 L 11/07/18 07:00 98.4 F 11/07/18 06:35 50 L 122/57 L 11/07/18 06:33 51 L 22 H 94 L 11/07/18 06:00 22 H 11/07/18 04:00 97.6 F 22 H 11/07/18 02:13 55 L 11/07/18 02:00 22 H 11/07/18 00:21 59 L 22 H 95 11/07/18 00:00 97.5 F L 22 H 11/06/18 22:34 65 11/06/18 22:00 25 H Weight Admit Weight 135.227 kg Weight 180.586 kg Most Recent Monitor Data Heart Rate from ECG 69 NIBP 150/90 NIBP BP-Mean 110 Respiration from ECG 23 SpO2 96 I&O: 11/06/18 11/07/18 11/08/18 06:59 06:59 06:59 Intake Total 2226 5941 219 Output Total 670 2900 125 Balance 1556 3041 94 Result Diagrams: 11/07/18 04:15 11/07/18 04:15 Phys Exam - Physical Examination sedated ET tube in place, OG tube in place Neck: no JVD expiratory wheezes, diffuse rales and diminished bases Cardiovascular: RRR, no significant murmur, no rub Gastrointestinal: soft, non-tender, no distention, positive bowel sounds Musculoskeletal: edema present sedated Skin: cap refill <2 seconds Dx/Plan (1) Acute respiratory failure with hypoxia and hypercapnia Code(s): J96.01 - ACUTE RESPIRATORY FAILURE WITH HYPOXIA; J96.02 - ACUTE RESPIRATORY FAILURE WITH HYPERCAPNIA Status: Acute (2) Sepsis Code(s): A41.9 - SEPSIS, UNSPECIFIED ORGANISM Status: Acute (3) CHERI (acute kidney injury) Code(s): N17.9 - ACUTE KIDNEY FAILURE, UNSPECIFIED Status: Acute (4) CAP (community acquired pneumonia) Code(s): J18.9 - PNEUMONIA, UNSPECIFIED ORGANISM Status: Acute (5) Elevated brain natriuretic peptide (BNP) level Code(s): R79.89 - OTHER SPECIFIED ABNORMAL FINDINGS OF BLOOD CHEMISTRY Status : Acute - Plan Plan: 1) Acute hypoxic hypercapnic failure: - pt remains intubated - manage per pulm recs 2) Sepsis 2/2 pneumonia: - cxr showed multifocal pna - pharm to does vancomycin 3) CHERI: - resolved - will diurese today 4) Elevated BNP - no HF on echo - pt had dilated IVC suggestive of volume overload, DC fluids and diurese 5) Hyponatremia: -resolved 6) Hypokalemia: replace - resolved Dispo: critical, continue ventilator support and broad spectrum abx. Diurese today. Addendum - Attending - Attending Attestation Date/Time: 11/07/181950 I personally evaluated the patient and discussed the management with Dr. Velázquez. I agree with the History, Examination, Assessment and Plan documented above with any addition or exceptions noted below. The patient remains intubated. Echo results reviewed. Will diurese today. Vent mgmt per critical care. Continue broad spectrum antibiotics.
[2018-11-07] MEDS: Piperacillin/Tazobactam 4.5 GM in Sodium Chloride 0.9% 100 ML IVPB SCH ×2 (11:48→18:03)
[2018-11-07 14:14] LABS: Vancomycin, Trough 13.3 ug/mL
[2018-11-07] MEDS: Azithromycin 500 MG in Sodium Chloride 0.9% 250 ML 250 ML IVPB SCH (14:36)
[2018-11-07] MEDS: Vancomycin HCl 1.5 GM in Sodium Chloride 0.9% 250 ML 300 ML IVPB SCH (14:43)
[2018-11-07] MEDS: Lorazepam 2 MG/ML VIAL SLOW IVP PRN (15:51)
[2018-11-07] MEDS: HumaLOG 300 UNITS/3 ML VIAL SC PRN (18:16)
[2018-11-08] MEDS: methylPREDNISolone Sod Succ 40 MG VIAL IVP SCH ×4 (00:25→20:23)
[2018-11-08] MEDS: Piperacillin/Tazobactam 4.5 GM in Sodium Chloride 0.9% 100 ML IVPB SCH ×4 (00:25→17:33)
[2018-11-08] MEDS: Propofol 1,000 MG/100 ML VIAL IV PRN ×5 (01:04→20:22)
[2018-11-08] MEDS: Vancomycin HCl 1.5 GM in Sodium Chloride 0.9% 250 ML 300 ML IVPB SCH ×2 (03:12→14:11)
[2018-11-08 04:05] LABS: Anion Gap 11 mmol/L (10-20); BUN (Urea Nitrogen) 16 mg/dL (7.0-18.7); Calc. Creatinine Clearance 260 mL/min (70-130); Calcium 8.4 mg/dL (7.8-10.44); Carbon Dioxide 27 mmol/L (22-29); Chloride 108 mmol/L (98-107); Estimated GFR-MDRD Greater than 90; Glucose 165 mg/dL (70-105); Potassium 3.9 mmol/L (3.5-5.1); Sodium 142 mmol/L (136-145)
[2018-11-08 04:11] LABS: Band 21 % (5-11); Lymphocytes 16 % (21-51); MDiff Complete? YES; Mean Corpuscular HGB CONC 29.6 g/dL (32.0-36.0); Mean Corpuscular Hemoglobin 22.4 pg (27.0-31.0); Mean Corpuscular Volume 75.4 fL (78.0-98.0); Mean Platelet Volume 6.1 fL (7.4-10.4); Neutrophil 63 % (42-75); Nucleated RBC 1 % (0); Platelet Count 202 thou/uL (130-400); Platelet Morphology Comment Appears Adequate; RBC Distribution Width 18.4 % (11.5-14.5); Red Blood Cell (RBC) Count 4.45 mill/uL (4.20-5.40); White Blood Cell (WBC) Count 9.3 thou/uL (4.8-10.8)
[2018-11-08 06:34] LABS: Actual Bicarbonate (HCO3a) 28.6 mEq/L (22-28); Base Excess (BEa) 3.3 mEq/L (-2.0 to +3.0); CO2 Tension 46.9 mmHg (35.0-45.0); Calcium, Ionized 1.15 mmol/L (1.12-1.30); Carboxyhemoglobin (COHb) 0.7 gm% (0.0-3.0); Hemoglobin (Hb) 11.2 g/dL (12.0-16.0); O2 Tension (PaO2) 82.6 mmHg (80.0-100.0); Potassium - ABG Lab 3.72 mmol/L (3.70-5.30)
[2018-11-08 06:35] LABS: ALV-art Gradient 143.975 (0-20); Puncture Site RRA
[2018-11-08] MEDS: Enoxaparin Sodium 40 MG/0.4 ML SYRINGE SC SCH ×2 (08:17→20:22)
[2018-11-08] MEDS: Famotidine/PF 20 mg/2ml Vial SLOW IVP SCH ×2 (08:17→20:22)
[2018-11-08 08:39] LABS: Hemoglobin A1c 4.4 % (4.0-6.0)
--- NOTE | 2018-11-08 08:46 | PDOC.FM ---
- Subjective Subjective: KAVITA overnight. Pt remains on ventilator support and sedated. No culture results yet. - Objective MAR Reviewed: Yes Vital Signs & Weight: Vital Signs (12 hours) Temp Pulse Resp BP Pulse Ox 11/08/18 08:00 21 H 99 11/08/18 07:00 97.6 F 11/08/18 06:29 55 L 11/08/18 06:00 20 11/08/18 04:00 98.0 F 20 11/08/18 02:35 51 L 11/08/18 02:00 20 11/08/18 00:00 97.8 F 20 11/07/18 23:30 54 L 151/103 H 11/07/18 23:29 100 11/07/18 22:00 20 Weight Admit Weight 135.227 kg Weight 188.7 kg Most Recent Monitor Data Heart Rate from ECG 64 NIBP 190/130 NIBP BP-Mean 150 Respiration from ECG 20 SpO2 97 I&O: 11/07/18 11/08/18 11/09/18 06:59 06:59 06:59 Intake Total 5941 3140 Output Total 2900 3260 80 Balance 3041 -120 -80 Result Diagrams: 11/08/18 03:15 11/08/18 03:15 Phys Exam - Physical Examination sedated HEENT: moist MMs ET tube in place, OG tube in place Neck: no nodes, no JVD Respiratory: wheezing present scattered rales and rhonchi Cardiovascular: RRR, no significant murmur, no rub Gastrointestinal: soft, non-tender, no distention, positive bowel sounds Musculoskeletal: no edema, pulses present sedated Skin: no rash Dx/Plan (1) Acute respiratory failure with hypoxia and hypercapnia Code(s): J96.01 - ACUTE RESPIRATORY FAILURE WITH HYPOXIA; J96.02 - ACUTE RESPIRATORY FAILURE WITH HYPERCAPNIA Status: Acute (2) Sepsis Code(s): A41.9 - SEPSIS, UNSPECIFIED ORGANISM Status: Acute (3) CHERI (acute kidney injury) Code(s): N17.9 - ACUTE KIDNEY FAILURE, UNSPECIFIED Status: Acute (4) CAP (community acquired pneumonia) Code(s): J18.9 - PNEUMONIA, UNSPECIFIED ORGANISM Status: Acute (5) Elevated brain natriuretic peptide (BNP) level Code(s): R79.89 - OTHER SPECIFIED ABNORMAL FINDINGS OF BLOOD CHEMISTRY Status : Acute - Plan Plan: 1) Acute hypoxic hypercapnic failure: - cont vent support - cont steroids - cont abx 2) Sepsis 2/2 pneumonia: - cxr showed multifocal pna - pharm to does vancomycin, cont zosyn, vanc and azithromycin 3) CHERI: - resolved, monitor IsOs 4) Elevated BNP - no HF on echo - pt had dilated IVC suggestive of volume overload, DC fluids and diurese - monitor IsOs 5) Hyponatremia: -resolved 6) Hypokalemia: replace - resolved Dispo: critical, continue ventilator support and broad spectrum abx. Continue steroids and monitor IsOs. Addendum - Attending - Attending Attestation Date/Time: 11/08/18 1038 I personally evaluated the patient and discussed the management with Dr. Velázquez. I agree with the History, Examination, Assessment and Plan documented above with any addition or exceptions noted below. Patient remains on the vent. She does open her eyes and shake her head yes and no for us this morning. She is hypertension and amlodipine is being added. She will have additional diuresis today.
[2018-11-08] MEDS ORDERED: Furosemide 40 MG/4 ML VIAL SLOW IVP SCH (09:15)
--- NOTE | 2018-11-08 09:36 | RAD ---
PORTABLE CHEST: DATE: 11/08/2018. PROVIDED CLINICAL HISTORY: Pneumonia. FINDINGS: Comparison 11/07/2018. Evaluation is markedly limited by patient body habitus. Significant interval c hange with respect to the prior examination is not definitely apparent. IMPRESSION: As above. POS: OFF
--- NOTE | 2018-11-08 09:52 | PRG ---
DATE OF SERVICE: 11/08/2018 TIME SPENT: 35 minutes of critical time. SUBJECTIVE: The patient remains intubated on mechanical ventilation. No acute changes overnight. OBJECTIVE: VITAL SIGNS: Temperature is 97.6, pulse 64, and blood pressure 190/130. A 24-hour intake 3140, output 3260. HEENT: Unremarkable. NECK: No JVD. LUNGS: Coarse wheezes and rhonchi bilaterally. CARDIOVASCULAR: S1 and S2. Regular. ABDOMEN: Soft, obese, nontender, and nondistended. EXTREMITIES: No clubbing, cyanosis, or edema. LABORATORY DATA: PH of 7.40, pCO2 of 46, pO2 of 82 on SIMV rate 20, tidal volume 400, PEEP 12, pressure support 16, and FiO2 of 40%. White blood cell count 9.3, hemoglobin 10, hematocrit 33.6, and platelet count 202. Sodium 142, potassium 3.9, chloride 108, CO2 of 27, BUN 16, creatinine 0.8, and glucose 165. Micro cultures so far not identified any significant linda. IMAGING STUDIES: Chest x-ray demonstrates continued infiltrate on the right. I do think there has been some improvement aeration in there in the last 24 hours. ASSESSMENT: 1. Multilobar bacterial pneumonia. 2. Acute hypoxic and hypercapnic respiratory failure, requiring mechanical ventilation. 3. Hypertension. 4. Hyperglycemia, secondary to steroids that she is on for bronchospasm. 5. Possible component of fluid overload on top of this. 6. Resolved renal dysfunction. PLAN: I do not think she is weanable at this time, but we may be able to start turning the vent down over the weekend. I am continuing her on Zithromax, Zosyn, and vancomycin. She will go ahead and get one more dose of furosemide today. Steroid dose will be cut in half. Family has not presented themselves for discussion. I anticipate her being intubated for at least 3 to 4 more days. Job ID: [id number]
[2018-11-08] MEDS: Amlodipine 10 MG TAB PER TUBE SCH (11:12)
[2018-11-08] MEDS ORDERED: Propofol 1,000 MG/100 ML VIAL IV ONE (14:08)
[2018-11-08] MEDS: Azithromycin 500 MG in Sodium Chloride 0.9% 250 ML 250 ML IVPB SCH (14:13)
[2018-11-08] MEDS: HumaLOG 300 UNITS/3 ML VIAL SC PRN (18:13)
[2018-11-09] MEDS: Propofol 1,000 MG/100 ML VIAL IV PRN ×6 (00:38→21:21)
[2018-11-09] MEDS: Piperacillin/Tazobactam 4.5 GM in Sodium Chloride 0.9% 100 ML IVPB SCH ×4 (00:38→17:22)
[2018-11-09] MEDS: methylPREDNISolone Sod Succ 40 MG VIAL IVP SCH ×4 (02:33→21:22)
[2018-11-09] MEDS: Lorazepam 2 MG/ML VIAL SLOW IVP PRN ×3 (02:33→21:21)
[2018-11-09 03:04] LABS: #Lymphocytes 1.9 thou/uL (1.20-3.40); #Monocytes 0.9 thou/uL (0.11-0.59); #Neutrophils 8.1 thou/uL (1.40-6.50); %Basophils 0.2 % (0.0-1.0); %Eosinophils 0.1 % (0.0-10.0); %Lymphocytes 16.9 % (21.0-51.0); %Monocytes 8.2 % (0.0-10.0); %Neutrophils 74.5 % (42.0-75.0); Hemoglobin 10.4 g/dL (12.0-16.0); Mean Corpuscular HGB CONC 29.6 g/dL (32.0-36.0); Mean Corpuscular Hemoglobin 22.3 pg (27.0-31.0); Mean Corpuscular Volume 75.4 fL (78.0-98.0); Mean Platelet Volume 5.8 fL (7.4-10.4); Platelet Count 224 thou/uL (130-400); RBC Distribution Width 18.2 % (11.5-14.5); Red Blood Cell (RBC) Count 4.67 mill/uL (4.20-5.40); White Blood Cell (WBC) Count 10.9 thou/uL (4.8-10.8)
[2018-11-09 03:23] LABS: Vancomycin, Trough 15.4 ug/mL
[2018-11-09 03:41] LABS: Anion Gap 10 mmol/L (10-20); BUN (Urea Nitrogen) 21 mg/dL (7.0-18.7); Calc. Creatinine Clearance 260 mL/min (70-130); Calcium 8.3 mg/dL (7.8-10.44); Carbon Dioxide 28 mmol/L (22-29); Chloride 108 mmol/L (98-107); Estimated GFR-MDRD Greater than 90; Glucose 162 mg/dL (70-105); Potassium 3.7 mmol/L (3.5-5.1); Sodium 142 mmol/L (136-145)
[2018-11-09] MEDS: Vancomycin HCl 1.5 GM in Sodium Chloride 0.9% 250 ML 300 ML IVPB SCH ×2 (03:58→14:22)
--- NOTE | 2018-11-09 05:58 | PDOC.FM ---
- Subjective Subjective: Patient is intubated and on sedation. Only overnight event is some blood tinged sputum obtained on deep suctioning. - Objective MAR Reviewed: Yes Vital Signs & Weight: Vital Signs (12 hours) Temp Pulse Resp BP Pulse Ox 11/09/18 04:00 97.9 F 20 11/09/18 02:00 55 L 20 164/116 H 11/09/18 00:00 98.0 F 20 11/08/18 22:29 58 L 11/08/18 22:00 20 11/08/18 20:00 97.6 F 20 95 11/08/18 19:08 48 L 127/86 11/08/18 19:07 96 11/08/18 18:00 20 Weight Admit Weight 135.227 kg Weight 188.7 kg Most Recent Monitor Data Heart Rate from ECG 49 NIBP 137/96 NIBP BP-Mean 109 Respiration from ECG 20 SpO2 97 I&O: 11/07/18 11/08/18 11/09/18 06:59 06:59 06:59 Intake Total 5941 3140 1519 Output Total 2900 3260 1405 Balance 3041 -120 114 Result Diagrams: 11/09/18 02:40 11/09/18 02:40 Phys Exam - Physical Examination Constitutional: NAD Respiratory: no wheezing, no rhonchi, clear to auscultation bilateral Cardiovascular: RRR, no significant murmur Gastrointestinal: soft, positive bowel sounds Musculoskeletal: no edema (patient is intubated ) Dx/Plan (1) Acute respiratory failure with hypoxia and hypercapnia Code(s): J96.01 - ACUTE RESPIRATORY FAILURE WITH HYPOXIA; J96.02 - ACUTE RESPIRATORY FAILURE WITH HYPERCAPNIA Status: Acute (2) CAP (community acquired pneumonia) Code(s): J18.9 - PNEUMONIA, UNSPECIFIED ORGANISM Status: Acute (3) CHERI (acute kidney injury) Code(s): N17.9 - ACUTE KIDNEY FAILURE, UNSPECIFIED Status: Resolved (4) Elevated brain natriuretic peptide (BNP) level Code(s): R79.89 - OTHER SPECIFIED ABNORMAL FINDINGS OF BLOOD CHEMISTRY Status : Acute (5) Sepsis Code(s): A41.9 - SEPSIS, UNSPECIFIED ORGANISM Status: Resolved - Plan Plan: Acute hypoxic hypercapnic resp failure 2/2 PNA -cont vent support per pulm guidance -cont ABX -steroids decreased by half per pulm multifocal PNA -initially septic, now resolved - cxr showed multifocal pna - 11/09/2018: vanc x 3 days, zosyn x 3 days, azithromycin x 4 days- cont all for now per pulm rec -bronch lavage cx- neg - Blood culture- NGTD -influenza- neg -legionella and strep urine antigen-neg -procal- wnl HTN -amlodipine added on 11/08/2018 -ranges from upper 130's-170's systolic and diastolic range is 80-130's -cont monitoring -will add PRN coverage CHERI, resolved Elevated BNP - 11/06/2018- Echo: EF 55-60%, no suggestion of LV dysfunction - fluids held hyperglycemia 2/2 aggressive IV steroids -A1C 4.4 morbid obesity DVT ppx: lovenox GI ppx: Pepcid nutrition: tube feeds, IV fluids stopped Addendum - Attending - Attending Attestation Date/Time: 11/09/18 0632 I personally evaluated the patient and discussed the management with Dr. Alexis. I agree with the History, Examination, Assessment and Plan documented above with any addition or exceptions noted below. The patient remains intubated. Will continue IV antibiotics. Lung sounds are improving. No wheezing noted this morning. Vent mgmt per pulmonology.
[2018-11-09 07:10] LABS: Actual Bicarbonate (HCO3a) 27.3 mEq/L (22-28); Base Excess (BEa) 2.8 mEq/L (-2.0 to +3.0); CO2 Tension 41.7 mmHg (35.0-45.0); Calcium, Ionized 1.15 mmol/L (1.12-1.30); Carboxyhemoglobin (COHb) 0.8 gm% (0.0-3.0); Hemoglobin (Hb) 11.2 g/dL (12.0-16.0); O2 Tension (PaO2) 106.2 mmHg (80.0-100.0); Potassium - ABG Lab 3.72 mmol/L (3.70-5.30); pH, Arterial 7.43 (7.35-7.45)
[2018-11-09 07:11] LABS: ALV-art Gradient 126.875 (0-20); Puncture Site RRA
[2018-11-09] MEDS ORDERED: Sodium Chloride 0.9% 15 ML NEB ONE (07:58)
--- NOTE | 2018-11-09 08:05 | RAD ---
FRadiograph chest one view: 11/09/2018 at 4:32 AM HISTORY: 43-year-old female with pneumonia COMPARISON: 11/08/2018 5:00 AM FINDINGS: Endotracheal tube and esophageal tube remain. Diffusely increased attenuation of the bilateral lungs, representing either pulmonary alveolar edema or pneumonia. This has slightly improved on the right. No pneumothorax. Cardiomegaly. IMPRESSION: 1. Bilateral pulmonary airspace densities representing either pulmonary edema or pneumonia. 2. This has improved on the right. 3. Cardiomegaly.
[2018-11-09] MEDS: Famotidine/PF 20 mg/2ml Vial SLOW IVP SCH ×2 (09:24→21:21)
[2018-11-09] MEDS: Enoxaparin Sodium 40 MG/0.4 ML SYRINGE SC SCH ×2 (09:25→21:21)
[2018-11-09] MEDS: Propofol BOLUS 1,000 MG/100 ML VIAL IV PRN ×2 (09:31→13:45)
[2018-11-09] MEDS: Amlodipine 10 MG TAB PER TUBE SCH (10:39)
[2018-11-09] MEDS ORDERED: Enalaprilat Dihydrate 2.5 MG in Dextrose 5% in Water 50 ML IVPB SCH (12:00)
[2018-11-09] MEDS ORDERED: Furosemide 100 MG/10 ML VIAL SLOW IVP SCH (12:30)
--- NOTE | 2018-11-09 12:48 | PRG ---
DATE OF SERVICE: 11/09/2018 SUBJECTIVE: Ms. Shetty remains sedated for mechanical ventilation. OBJECTIVE: VITAL SIGNS: She is afebrile, heart rates in the 60s, blood pressure has been high at 192/123. We have added IV Vasotec q.6 hours. Last blood pressure is 164/109. Intake and output is positive 1138. LUNGS: Distant with left greater than right faint wheezes. HEART: Regular rhythm. S1 and S2 are distant. ABDOMEN: Soft. No mass or organomegaly. EXTREMITIES: Without edema. LABORATORY DATA: White count 10.9, hemoglobin 10.4, and platelets 224. Sodium 142, potassium 3.7, chloride 108, bicarb 28, BUN 21, creatinine 0.83. PH 7.47, CO2 of 41, pO2 of 106. We turned her PEEP down to 8. We turned her intermittent mandatory ventilation down to 16. We will give her Lasix today. We have added Vasotec. Hopefully, with better blood pressure control and diuresis, we will see improvement in her pulmonary edema. Her renal function should be good enough to tolerate diuresis. IMPRESSION: 1. Pneumonia with acute respiratory distress syndrome. 2. Acute respiratory failure with mechanical ventilation. 3. Acute on chronic kidney disease with improving renal function. Cultures have again been reviewed. I see no positive blood cultures. Critical care time is 35 minutes. Job ID: [id number] MTDD
[2018-11-09] MEDS: Azithromycin 500 MG in Sodium Chloride 0.9% 250 ML 250 ML IVPB SCH (15:42)
[2018-11-09] MEDS: Enalaprilat Dihydrate 1.25 MG/ML VIAL SLOW IVP SCH (17:45)
[2018-11-10] MEDS: Piperacillin/Tazobactam 4.5 GM in Sodium Chloride 0.9% 100 ML IVPB SCH ×4 (00:49→17:53)
[2018-11-10] MEDS: Enalaprilat Dihydrate 1.25 MG/ML VIAL SLOW IVP SCH ×4 (00:50→19:29)
[2018-11-10] MEDS: Vancomycin HCl 1.5 GM in Sodium Chloride 0.9% 250 ML 300 ML IVPB SCH ×2 (03:37→15:27)
[2018-11-10] MEDS: methylPREDNISolone Sod Succ 40 MG VIAL IVP SCH ×4 (03:38→20:12)
[2018-11-10 05:47] LABS: #Lymphocytes 1.9 thou/uL (1.20-3.40); #Monocytes 0.6 thou/uL (0.11-0.59); #Neutrophils 6.8 thou/uL (1.40-6.50); %Eosinophils 0.2 % (0.0-10.0); %Lymphocytes 20.4 % (21.0-51.0); %Monocytes 6.5 % (0.0-10.0); %Neutrophils 72.9 % (42.0-75.0); Hemoglobin 10.3 g/dL (12.0-16.0); Mean Corpuscular HGB CONC 29.3 g/dL (32.0-36.0); Mean Corpuscular Hemoglobin 21.7 pg (27.0-31.0); Mean Corpuscular Volume 74.2 fL (78.0-98.0); Mean Platelet Volume 11.2 fL (7.4-10.4); Platelet Count 242 thou/uL (130-400); Red Blood Cell (RBC) Count 4.76 mill/uL (4.20-5.40); White Blood Cell (WBC) Count 9.4 thou/uL (4.8-10.8)
[2018-11-10 06:07] LABS: Anion Gap 11 mmol/L (10-20); BUN (Urea Nitrogen) 25 mg/dL (7.0-18.7); Calc. Creatinine Clearance 267 mL/min (70-130); Calcium 8.2 mg/dL (7.8-10.44); Carbon Dioxide 30 mmol/L (22-29); Chloride 107 mmol/L (98-107); Estimated GFR-MDRD Greater than 90; Glucose 191 mg/dL (70-105); Potassium 3.6 mmol/L (3.5-5.1); Sodium 144 mmol/L (136-145)
[2018-11-10 06:40] LABS: Actual Bicarbonate (HCO3a) 28.6 mEq/L (22-28); Base Excess (BEa) 3.8 mEq/L (-2.0 to +3.0); CO2 Tension 43.6 mmHg (35.0-45.0); Calcium, Ionized 1.14 mmol/L (1.12-1.30); Carboxyhemoglobin (COHb) 1.2 gm% (0.0-3.0); Hemoglobin (Hb) 11.7 g/dL (12.0-16.0); O2 Tension (PaO2) 74.3 mmHg (80.0-100.0); Potassium - ABG Lab 3.58 mmol/L (3.70-5.30); Puncture Site RRA; pH, Arterial 7.43 (7.35-7.45)
[2018-11-10] MEDS: hydrALAZINE 20 MG/ML VIAL SLOW IVP PRN (07:54)
[2018-11-10] MEDS: Propofol 1,000 MG/100 ML VIAL IV PRN ×5 (07:55→21:56)
--- NOTE | 2018-11-10 08:42 | RAD ---
FPortable chest radiograph: 11/10/2018 COMPARISON: 11/09/2018 HISTORY: pneumonia, intubation FINDINGS: Endotracheal tube and nasogastric tube in stable position. Stable enlargement of the cardia c silhouette. Stable pulmonary vascular congestion/prominence. Stable hazy nonspecific increased pulm onary parenchymal opacity in the perihilar regions and both lung bases. Detailed assessment limited s econdary to body habitus and portable technique as well as supine positioning. IMPRESSION: No significant interval change.
[2018-11-10] MEDS ORDERED: Furosemide 40 MG/4 ML VIAL SLOW IVP SCH (08:45)
[2018-11-10] MEDS: Famotidine/PF 20 mg/2ml Vial SLOW IVP SCH ×2 (08:50→20:11)
[2018-11-10] MEDS: Enoxaparin Sodium 40 MG/0.4 ML SYRINGE SC SCH ×2 (08:50→20:11)
--- NOTE | 2018-11-10 09:24 | PDOC.FM ---
- Subjective Subjective: patient remains intubated and sedated. No acute events overnight. She continues to spike elevated BPs. - Objective Vital Signs & Weight: Vital Signs (12 hours) Temp Pulse Resp BP 11/10/18 08:00 98.7 F 30 H 11/10/18 07:54 66 196/127 H 11/10/18 07:14 60 212/144 H 11/10/18 06:00 22 H 11/10/18 05:18 160/101 H 11/10/18 04:00 98.6 F 20 11/10/18 03:23 51 L 160/101 H 11/10/18 02:00 19 11/10/18 00:50 149/98 H 11/10/18 00:00 98.3 F 22 H 11/09/18 23:41 54 L 11/09/18 22:32 49 L 149/98 H 11/09/18 22:00 22 H Weight Admit Weight 135.227 kg Weight 188.7 kg Most Recent Monitor Data Heart Rate from ECG 59 NIBP 169/117 NIBP BP-Mean 134 Respiration from ECG 20 SpO2 91 I&O: 11/09/18 11/10/18 11/11/18 06:59 06:59 06:59 Intake Total 2663 2854 Output Total 1525 3415 190 Balance 1138 -561 -190 Result Diagrams: 11/10/18 05:35 11/10/18 05:35 Phys Exam - Physical Examination Constitutional: NAD (sedated on vent) Respiratory: no rhonchi diffuse wheezing Cardiovascular: RRR, no significant murmur Gastrointestinal: soft, no distention, positive bowel sounds trace edema BLE Dx/Plan (1) Acute respiratory failure with hypoxia and hypercapnia Code(s): J96.01 - ACUTE RESPIRATORY FAILURE WITH HYPOXIA; J96.02 - ACUTE RESPIRATORY FAILURE WITH HYPERCAPNIA Status: Acute (2) CAP (community acquired pneumonia) Code(s): J18.9 - PNEUMONIA, UNSPECIFIED ORGANISM Status: Acute (3) CHERI (acute kidney injury) Code(s): N17.9 - ACUTE KIDNEY FAILURE, UNSPECIFIED Status: Resolved (4) Elevated brain natriuretic peptide (BNP) level Code(s): R79.89 - OTHER SPECIFIED ABNORMAL FINDINGS OF BLOOD CHEMISTRY Status : Acute (5) Sepsis Code(s): A41.9 - SEPSIS, UNSPECIFIED ORGANISM Status: Resolved - Plan Plan: Acute hypoxic hypercapnic resp failure 2/2 PNA -cont vent support per pulm guidance -cont ABX -cont steroids -down 2 lts after lasix 60 mg IV yesterday. -will give another dose today multifocal PNA -initially septic, now resolved - cxr showed multifocal pna - 11/10/2018: vanc x 4 days, zosyn x 4 days, azithromycin x 5 days- cont all for now per pulm rec -bronch lavage cx- neg - Blood culture- NGTD -influenza- neg -legionella and strep urine antigen-neg -procal- wnl HTN -amlodipine added on 11/08/2018 -vasotec added 11/09/2018 -still having severe range BP - will add HCTZ today per tube -cont monitoring -PRN coverage for SBP > 180 or DBP >110 CHERI, resolved Elevated BNP - 11/06/2018- Echo: EF 55-60%, no suggestion of LV dysfunction - fluids held hyperglycemia 2/2 aggressive IV steroids -A1C 4.4 morbid obesity DVT ppx: lovenox GI ppx: Pepcid nutrition: tube feeds, IV fluids stopped Addendum - Attending - Attending Attestation Date/Time: 11/10/18 4614 I personally evaluated the patient and discussed the management with Dr. Alexis. I agree with the History, Examination, Assessment and Plan documented above with any addition or exceptions noted below. The patient remains on the vent. Her blood pressures remain elevated, discussed restarting home bp meds but pt is being started on Cardene drip. She does have some wheezing this morning. Continue antibiotics and steroids.
[2018-11-10] MEDS ORDERED: Hydrochlorothiazide 25 MG TAB PO SCH (09:45)
[2018-11-10] MEDS ORDERED: Potassium Chloride 40 MEQ in Premix Bag 1 BAG IVPB SCH (10:15)
[2018-11-10] MEDS ORDERED: niCARdipine 40MG In NaCl 40 MG/200 ML BAG IVPB SCH (10:15)
[2018-11-10] MEDS ORDERED: niCARdipine HCl 25 MG in Sodium Chloride 0.9% 250 ML 240 ML IVPB SCH (10:15)
[2018-11-10] MEDS: fentaNYL Citrate/PF 2,000 MCG in Sodium Chloride 0.9% 60 ML IV SCH (10:30)
--- NOTE | 2018-11-10 10:54 | PRG ---
DATE OF SERVICE: 11/10/2018 SUBJECTIVE: Ms. Shetty had a brisk diuresis yesterday with Lasix. Intake and output; however, was only negative 561. OBJECTIVE: LUNGS: Clear anteriorly. HEART: Regular rhythm. S1, S2 are normal. ABDOMEN: Soft, protuberant. She is having frequent bowel movements. EXTREMITIES: Warm without edema. LABORATORY DATA: White count 9.4, hemoglobin 10.3, platelets 242. Sodium 144, potassium 3.6, chloride 107, bicarb 30, BUN 25, creatinine 0.8. IMAGING STUDIES: Chest x-ray is unchanged. IMPRESSION: 1. Respiratory failure associated with pneumonia and acute respiratory distress syndrome. 2. Obesity and hypoventilation, most likely. 3. Developing metabolic alkalosis with her diuresis. I would continue to diurese her as long as her renal function and her blood pressure tolerated. She has a diastolic currently of 125, so started her on a Cardene drip to facilitate better blood pressure control. I am not sure we are getting accurate blood pressure readings given the size of her arms. She is currently not weanable. Given her obesity, she may not be weanable without a tracheostomy. CRITICAL CARE TIME: 30 minutes. Job ID: [id number]
[2018-11-10] MEDS: HumaLOG 300 UNITS/3 ML VIAL SC PRN (12:08)
[2018-11-10] MEDS: Potassium Chloride 20 MEQ in Premix Bag 1 BAG IVPB SCH ×2 (12:28→14:39)
[2018-11-10 14:32] LABS: Vancomycin, Trough 17.4 ug/mL
[2018-11-10] MEDS: Azithromycin 500 MG in Sodium Chloride 0.9% 250 ML 250 ML IVPB SCH (15:11)
[2018-11-10] MEDS: Amlodipine 10 MG TAB PER TUBE SCH (17:55)
[2018-11-10] MEDS: Lorazepam 2 MG/ML VIAL SLOW IVP PRN (22:18)
[2018-11-11] MEDS: Piperacillin/Tazobactam 4.5 GM in Sodium Chloride 0.9% 100 ML IVPB SCH ×4 (00:33→17:09)
[2018-11-11] MEDS: Enalaprilat Dihydrate 1.25 MG/ML VIAL SLOW IVP SCH ×4 (00:33→17:09)
[2018-11-11] MEDS: HumaLOG 300 UNITS/3 ML VIAL SC PRN ×2 (00:33→12:36)
[2018-11-11] MEDS: methylPREDNISolone Sod Succ 40 MG VIAL IVP SCH ×4 (02:18→20:20)
[2018-11-11] MEDS: Propofol 1,000 MG/100 ML VIAL IV PRN ×6 (02:18→22:14)
[2018-11-11] MEDS: Vancomycin HCl 1.5 GM in Sodium Chloride 0.9% 250 ML 300 ML IVPB SCH (02:18)
[2018-11-11 05:05] LABS: #Basophils 0.1 thou/uL (0.0-0.2); #Lymphocytes 1.6 thou/uL (1.20-3.40); #Monocytes 0.7 thou/uL (0.11-0.59); #Neutrophils 7.3 thou/uL (1.40-6.50); %Basophils 0.7 % (0.0-1.0); %Eosinophils 0.1 % (0.0-10.0); %Monocytes 6.7 % (0.0-10.0); %Neutrophils 75.5 % (42.0-75.0); Hemoglobin 10.4 g/dL (12.0-16.0); Mean Corpuscular HGB CONC 28.8 g/dL (32.0-36.0); Mean Corpuscular Hemoglobin 21.8 pg (27.0-31.0); Mean Corpuscular Volume 75.9 fL (78.0-98.0); Mean Platelet Volume 10.9 fL (7.4-10.4); Platelet Count 242 thou/uL (130-400); Red Blood Cell (RBC) Count 4.77 mill/uL (4.20-5.40); White Blood Cell (WBC) Count 9.7 thou/uL (4.8-10.8)
[2018-11-11 05:15] LABS: Anion Gap 9 mmol/L (10-20); BUN (Urea Nitrogen) 28 mg/dL (7.0-18.7); Calc. Creatinine Clearance 277 mL/min (70-130); Calcium 8.4 mg/dL (7.8-10.44); Carbon Dioxide 33 mmol/L (22-29); Chloride 105 mmol/L (98-107); Estimated GFR-MDRD Greater than 90; Glucose 162 mg/dL (70-105); Potassium 3.7 mmol/L (3.5-5.1); Sodium 143 mmol/L (136-145)
--- NOTE | 2018-11-11 06:21 | PDOC.FM ---
- Subjective Subjective: 43 yo female seen at bedside this AM. Patient is intubated and sedated. Per nursing staff, patient did not have any acute changes overnight. She did require increased sedation due to coughing spells. No other history is able to be obtained. - Objective Vital Signs & Weight: Vital Signs (12 hours) Temp Pulse Resp BP Pulse Ox 11/11/18 06:00 23 H 11/11/18 05:57 149/106 H 11/11/18 04:00 98.1 F 18 11/11/18 03:36 52 L 138/83 11/11/18 02:00 16 11/11/18 00:33 147/84 H 11/11/18 00:00 97.8 F 22 H 11/10/18 23:17 61 11/10/18 22:00 20 11/10/18 20:00 97.6 F 26 H 94 L 11/10/18 19:29 149/91 H 11/10/18 19:17 59 L 149/91 H Weight Admit Weight 135.227 kg Weight 186.3 kg Most Recent Monitor Data Heart Rate from ECG 54 NIBP 143/97 NIBP BP-Mean 102 Respiration from ECG 20 SpO2 95 I&O: 11/09/18 11/10/18 11/11/18 06:59 06:59 06:59 Intake Total 2663 2854 3348 Output Total 1525 2005 3825 Balance 1138 -561 -867 Result Diagrams: 11/11/18 04:40 11/11/18 04:40 Phys Exam - Physical Examination Constitutional: NAD HEENT: moist MMs ET in place Neck: no JVD, supple Respiratory: no rales, wheezing present Cardiovascular: RRR, no significant murmur Gastrointestinal: soft, non-tender, no distention, positive bowel sounds Musculoskeletal: no edema, pulses present intubated and sedated. Does not follow commands while sedated. Patient withdraws from pain and has basic reflexes. Deviation from normal: intubated and sedated. Skin: no rash, cap refill <2 seconds Dx/Plan (1) Acute respiratory failure with hypoxia and hypercapnia Code(s): J96.01 - ACUTE RESPIRATORY FAILURE WITH HYPOXIA; J96.02 - ACUTE RESPIRATORY FAILURE WITH HYPERCAPNIA Status: Acute (2) Sepsis Code(s): A41.9 - SEPSIS, UNSPECIFIED ORGANISM Status: Resolved (3) CAP (community acquired pneumonia) Code(s): J18.9 - PNEUMONIA, UNSPECIFIED ORGANISM Status: Acute (4) HTN (hypertension) Code(s): I10 - ESSENTIAL (PRIMARY) HYPERTENSION Status: Acute (5) Elevated brain natriuretic peptide (BNP) level Code(s): R79.89 - OTHER SPECIFIED ABNORMAL FINDINGS OF BLOOD CHEMISTRY Status : Acute (6) CHERI (acute kidney injury) Code(s): N17.9 - ACUTE KIDNEY FAILURE, UNSPECIFIED Status: Resolved (7) Morbid obesity Code(s): E66.01 - MORBID (SEVERE) OBESITY DUE TO EXCESS CALORIES Status: Acute - Plan Plan: Acute hypoxic hypercapnic resp failure 2/2 PNA vs fluid overload - cont vent support per pulm guidance - cont ABX - cont steroids - AM ABG pending a this time multifocal PNA - initially septic, now resolved - cxr showed multifocal pna - 11/10/2018: vanc x 4 days, zosyn x 4 days, azithromycin x 5 days- cont all for now per pulm rec - bronch lavage cx- neg - Blood culture- NGTD - influenza- neg - legionella and strep urine antigen-neg - procal- wnl HTN - amlodipine added on 11/08/2018 - vasotec added 11/09/2018 - HCTZ added 11/10/2018 - Nicardipine drip ordered, but not initiated - cont monitoring - PRN coverage for SBP > 180 or DBP >110 CHERI, resolved - Continue monitoring Elevated BNP - 11/06/2018- Echo: EF 55-60%, no suggestion of LV dysfunction - Total output 3825 with net negative -477 ml - Continue diuresis hyperglycemia 2/2 aggressive IV steroids - A1C 4.4 - Steroids decreased morbid obesity - Could be component of Obesity Hypoventilation Syndrome - Pul is considering tracheostomy if unable to fully wean from Ventilator Disposition: Guarded, will continue current plan of care and continue to wean from ventilator Addendum - Attending - Attending Attestation Date/Time: 11/11/18 1029 I personally evaluated the patient and discussed the management with Dr. Coley. I agree with and repeated the History, Examination, Assessment and Plan documented above with any addition or exceptions noted below.
[2018-11-11] MEDS ORDERED: Furosemide 40 MG/4 ML VIAL SLOW IVP SCH (07:00)
[2018-11-11 07:30] LABS: Actual Bicarbonate (HCO3a) 31.7 mEq/L (22-28); Base Excess (BEa) 4.8 mEq/L (-2.0 to +3.0); CO2 Tension 58.6 mmHg (35.0-45.0); Calcium, Ionized 1.24 mmol/L (1.12-1.30); Carboxyhemoglobin (COHb) 0.9 gm% (0.0-3.0); Hemoglobin (Hb) 11.7 g/dL (12.0-16.0); O2 Tension (PaO2) 91.5 mmHg (80.0-100.0); Potassium - ABG Lab 3.81 mmol/L (3.70-5.30); pH, Arterial 7.35 (7.35-7.45)
[2018-11-11 07:32] LABS: Puncture Site RRA
--- NOTE | 2018-11-11 07:49 | RAD ---
FXR Chest 1 View Portable History: [Pneumonia] Comparison: Radiograph prior to a Findings: The patient appears to be intubated with endotracheal tube tip just below the level of the clavicles although difficult to evaluate. Enteric tube tip not well seen. Heart size is enlarged. Lar ge effusions. Moderate pulmonary edema. Patient is rotated to the left. No large pneumothorax. Impression: Poorly penetrated exam. Given this limitation, similar examination of the chest.
--- NOTE | 2018-11-11 08:36 | PRG ---
DATE OF SERVICE: 11/11/2018 TIME SPENT: 35 minutes critical time. SUBJECTIVE: The patient remains intubated on mechanical ventilation with no acute changes overnight. OBJECTIVE: VITAL SIGNS: Temperature 98.1, pulse 54, blood pressure /97. A 24-hour intake 3348, output 3825. HEENT: Remarkable for ET tube. NECK: No JVD. LUNGS: Coarse wheezing. CARDIOVASCULAR: S1, S2. Regular. ABDOMEN: Soft, obese, nontender, and nondistended. EXTREMITIES: No edema. LABORATORY DATA: White blood cell count 9.7, hematocrit 36.2, and platelet count 242. PH of 7.35, pCO2 of 58, pO2 of 91, that is on SIMV rate 16, tidal volume 400, PEEP 8, pressure support 16, FiO2 of 40%. Sodium 143, potassium 3.7, chloride 105, CO2 of 33, BUN 28, creatinine 0.7 glucose 162. IMAGING STUDIES: Chest x-ray shows slight improvement. ASSESSMENT: 1. Bilateral pneumonia, unknown organism. 2. Acute respiratory failure requiring mechanical ventilation. 3. Morbid obesity. PLAN: 1. She is not weanable at this time secondary to hypoxemia and hypercapnia. Agree with attempts to diurese the patient. 2. Stop vancomycin since the patient did not grow out Staph in cultures. 3. Increase frequency of nebs every 4 hours given continued bronchospasm. 4. Continue enteral tube feeds. Job ID: [id number]
[2018-11-11] MEDS: acetaZOLAMIDE Sodium 500 mg Vial IVP SCH ×2 (08:41→20:17)
[2018-11-11] MEDS: Famotidine/PF 20 mg/2ml Vial SLOW IVP SCH ×2 (08:42→20:20)
[2018-11-11] MEDS: Hydrochlorothiazide 25 MG TAB PO SCH (08:42)
[2018-11-11] MEDS: hydrALAZINE 20 MG/ML VIAL SLOW IVP PRN ×2 (08:52→12:02)
[2018-11-11] MEDS: fentaNYL Citrate/PF 2,000 MCG in Sodium Chloride 0.9% 60 ML IV SCH (10:12)
[2018-11-11] MEDS: Amlodipine 10 MG TAB PER TUBE SCH (12:04)
[2018-11-11] MEDS: Enoxaparin Sodium 40 MG/0.4 ML SYRINGE SC SCH ×2 (12:16→20:59)
[2018-11-11] MEDS: Azithromycin 500 MG in Sodium Chloride 0.9% 250 ML 250 ML IVPB SCH (15:38)
[2018-11-12] MEDS: Piperacillin/Tazobactam 4.5 GM in Sodium Chloride 0.9% 100 ML IVPB SCH ×4 (00:45→18:02)
[2018-11-12] MEDS: Enalaprilat Dihydrate 1.25 MG/ML VIAL SLOW IVP SCH ×4 (00:46→18:02)
[2018-11-12] MEDS: HumaLOG 300 UNITS/3 ML VIAL SC PRN ×2 (00:47→11:04)
[2018-11-12] MEDS: methylPREDNISolone Sod Succ 40 MG VIAL IVP SCH ×4 (03:19→20:18)
[2018-11-12] MEDS: Propofol 1,000 MG/100 ML VIAL IV PRN ×5 (03:19→20:27)
[2018-11-12 05:20] LABS: #Lymphocytes 2.1 thou/uL (1.20-3.40); #Monocytes 0.9 thou/uL (0.11-0.59); #Neutrophils 8.3 thou/uL (1.40-6.50); %Basophils 0.1 % (0.0-1.0); %Eosinophils 0.3 % (0.0-10.0); %Lymphocytes 18.2 % (21.0-51.0); %Monocytes 7.8 % (0.0-10.0); %Neutrophils 73.6 % (42.0-75.0); Hemoglobin 10.6 g/dL (12.0-16.0); Mean Corpuscular HGB CONC 29.1 g/dL (32.0-36.0); Mean Corpuscular Volume 75.7 fL (78.0-98.0); Mean Platelet Volume 11.2 fL (7.4-10.4); Platelet Count 265 thou/uL (130-400); RBC Distribution Width 18.4 % (11.5-14.5); Red Blood Cell (RBC) Count 4.83 mill/uL (4.20-5.40); White Blood Cell (WBC) Count 11.3 thou/uL (4.8-10.8)
[2018-11-12 05:28] LABS: Anion Gap 11 mmol/L (10-20); BUN (Urea Nitrogen) 29 mg/dL (7.0-18.7); Calc. Creatinine Clearance 255 mL/min (70-130); Calcium 8.9 mg/dL (7.8-10.44); Carbon Dioxide 29 mmol/L (22-29); Chloride 104 mmol/L (98-107); Estimated GFR-MDRD Greater than 90; Glucose 134 mg/dL (70-105); Potassium 3.7 mmol/L (3.5-5.1); Sodium 140 mmol/L (136-145)
--- NOTE | 2018-11-12 06:24 | PDOC.FM ---
- Subjective Subjective: 43 yo female seen at bedside this AM. Patient is intubated and sedated this AM. Per nursing staff, patient had a good night with no acute events. She becomes arousable and follows commands off of sedation. No other history is able to be obtained. - Objective Vital Signs & Weight: Vital Signs (12 hours) Temp Pulse Resp BP Pulse Ox 11/12/18 06:00 22 H 11/12/18 05:09 134/79 11/12/18 04:00 98.0 F 24 H 11/12/18 03:17 66 133/78 11/12/18 02:00 23 H 11/12/18 00:46 137/81 11/12/18 00:00 98.3 F 22 H 11/11/18 22:38 58 L 11/11/18 22:00 21 H 11/11/18 20:00 23 H 99 11/11/18 19:04 68 163/104 H 11/11/18 19:03 94 L 11/11/18 19:00 98.3 F Weight Admit Weight 135.227 kg Weight 182.7 kg Most Recent Monitor Data Heart Rate from ECG 68 NIBP 147/92 NIBP BP-Mean 110 Respiration from ECG 24 SpO2 99 I&O: 11/10/18 11/11/18 11/12/18 06:59 06:59 06:59 Intake Total 2854 3348 2562 Output Total 7347 6995 7928 [facility]561 -477 -1493 Result Diagrams: 11/12/18 03:30 11/12/18 03:30 Phys Exam - Physical Examination intubated and sedated ET in place Respiratory: no rales, no rhonchi Wheezing improved from 11/11/18 Cardiovascular: RRR, no significant murmur Gastrointestinal: soft, non-tender, no distention, positive bowel sounds Musculoskeletal: no edema, pulses present intubated and sedated Deviation from normal: intubated and sedated Skin: no rash Dx/Plan (1) Acute respiratory failure with hypoxia and hypercapnia Code(s): J96.01 - ACUTE RESPIRATORY FAILURE WITH HYPOXIA; J96.02 - ACUTE RESPIRATORY FAILURE WITH HYPERCAPNIA Status: Acute (2) Sepsis Code(s): A41.9 - SEPSIS, UNSPECIFIED ORGANISM Status: Resolved (3) CAP (community acquired pneumonia) Code(s): J18.9 - PNEUMONIA, UNSPECIFIED ORGANISM Status: Acute (4) HTN (hypertension) Code(s): I10 - ESSENTIAL (PRIMARY) HYPERTENSION Status: Acute (5) Elevated brain natriuretic peptide (BNP) level Code(s): R79.89 - OTHER SPECIFIED ABNORMAL FINDINGS OF BLOOD CHEMISTRY Status : Acute (6) CHERI (acute kidney injury) Code(s): N17.9 - ACUTE KIDNEY FAILURE, UNSPECIFIED Status: Resolved (7) Morbid obesity Code(s): E66.01 - MORBID (SEVERE) OBESITY DUE TO EXCESS CALORIES Status: Acute - Plan Plan: Acute hypoxic hypercapnic resp failure 2/2 PNA vs fluid overload - cont vent support per pulm guidance - cont ABX - cont steroids - Duonebs increased to Q4H - AM ABG pending at this time multifocal PNA - initially septic, now resolved - cxr showed multifocal pna - Follow up CXRs poor penetration - 11/10/2018: Zosyn x 4 days, azithromycin x 5 days- cont all for now per pulm rec - Vancomycin d/c 11/11/18 - bronch lavage cx- neg - Blood culture- NGTD - influenza- neg - legionella and strep urine antigen-neg - procal- wnl HTN - amlodipine added on 11/08/2018 - vasotec added 11/09/2018 - HCTZ added 11/10/2018 - Nicardipine drip ordered, but not initiated - cont monitoring - PRN coverage for SBP > 180 or DBP >110 CHERI, resolved - Creatinine 0.82 this AM - Continue monitoring Elevated BNP - 11/06/2018- Echo: EF 55-60%, no suggestion of LV dysfunction - Total output 4055 with net negative -1493 ml - Continue diuresis - Pulm added Diamox for supportive measure during diuresis hyperglycemia 2/2 aggressive IV steroids - A1C 4.4 - Steroids decreased - accuchecks well controlled morbid obesity - Could be component of Obesity Hypoventilation Syndrome - Pulm is considering tracheostomy if unable to fully wean from Ventilator Disposition: Guarded, will continue current plan of care and continue to wean from ventilator Addendum - Attending - Attending Attestation Date/Time: 11/12/18 1510 I personally evaluated the patient and discussed the management with Dr. Coley. I agree with the History, Examination, Assessment and Plan documented above with any addition or exceptions noted below.
[2018-11-12] MEDS ORDERED: Furosemide 40 MG/4 ML VIAL SLOW IVP SCH (06:45)
[2018-11-12 06:52] LABS: Actual Bicarbonate (HCO3a) 27.4 mEq/L (22-28); Base Excess (BEa) 2.5 mEq/L (-2.0 to +3.0); CO2 Tension 43.4 mmHg (35.0-45.0); Calcium, Ionized 1.22 mmol/L (1.12-1.30); Carboxyhemoglobin (COHb) 0.9 gm% (0.0-3.0); Hemoglobin (Hb) 11.5 g/dL (12.0-16.0); O2 Tension (PaO2) 72.2 mmHg (80.0-100.0); Potassium - ABG Lab 3.94 mmol/L (3.70-5.30); pH, Arterial 7.42 (7.35-7.45)
[2018-11-12 06:53] LABS: Puncture Site RRA
[2018-11-12] MEDS: acetaZOLAMIDE Sodium 500 mg Vial IVP SCH ×2 (07:26→20:32)
[2018-11-12] MEDS: Famotidine/PF 20 mg/2ml Vial SLOW IVP SCH ×2 (07:26→20:17)
[2018-11-12] MEDS: Enoxaparin Sodium 40 MG/0.4 ML SYRINGE SC SCH (07:27)
[2018-11-12] MEDS: Hydrochlorothiazide 25 MG TAB PO SCH (07:27)
--- NOTE | 2018-11-12 07:38 | RAD ---
XR Chest 1 View Portable History: [Pneumonia] Comparison: Radiograph prior to Findings: Patient is intubated with endotracheal tube tip the level of the clavicles. Layering effusi ons. Moderate edema. Heart size is enlarged. Dense bibasilar consolidation. Impression: Endotracheal tube tip at level of clavicles. Enteric tube tip below diaphragm on the lateral [id number]. Similar appearance during effusions and moderate edema. Possible pneumonia in the lower lobes.
--- NOTE | 2018-11-12 08:41 | PRG ---
DATE OF SERVICE: 11/12/2018 TIME SPENT: 35 minutes of critical care time. SUBJECTIVE: The patient remains intubated on mechanical ventilation. She will wake up and follows commands from me this morning since her sedation has been turned down. OBJECTIVE: VITAL SIGNS: On exam, temperature is 98.0, pulse 60, blood pressure 147/92, and O2 sat 99%. A 24-hour intake 2562, output 4055. Weight 402. HEENT: Unremarkable. NECK: No JVD. LUNGS: Fairly clear today compared to yesterday. CARDIAC: S1 and S2, regular. ABDOMEN: Soft, obese. EXTREMITIES: Edematous. LABORATORY DATA: Sodium 140, potassium 3.7, chloride 104, CO2 of 29, BUN 29, creatinine 0.9, and glucose 134. PH of 7.42, pCO2 of 43, pO2 of 72 on SIMV rate 10, tidal volume 400, PEEP 8, pressure support 16, and FiO2 of 40%. White blood cell count 11.3, hematocrit 36.5, and platelet count 265. IMAGING DATA: Chest x-ray shows no significant change. ASSESSMENT: 1. Bilateral pneumonia. 2. Acute hypoxic and hypercapnic respiratory failure requiring mechanical ventilation. 3. Morbid obesity. PLAN: 1. Decrease steroid dose. 2. Decrease respiratory rate, pressure support, and PEEP. 3. Continue IV antibiotics. 4. Hopefully, extubate later in the week. Job ID: [id number]
[2018-11-12] MEDS: Amlodipine 10 MG TAB PER TUBE SCH (10:53)
[2018-11-12] MEDS: Azithromycin 500 MG in Sodium Chloride 0.9% 250 ML 250 ML IVPB SCH (14:12)
[2018-11-13] MEDS: Enalaprilat Dihydrate 1.25 MG/ML VIAL SLOW IVP SCH ×2 (00:18→05:06)
[2018-11-13] MEDS: Piperacillin/Tazobactam 4.5 GM in Sodium Chloride 0.9% 100 ML IVPB SCH ×4 (00:18→17:40)
[2018-11-13] MEDS: Propofol 1,000 MG/100 ML VIAL IV PRN ×3 (00:25→18:21)
[2018-11-13 04:36] LABS: #Eosinphils 0.1 thou/uL (0.0-0.7); #Lymphocytes 2.2 thou/uL (1.20-3.40); #Monocytes 0.8 thou/uL (0.11-0.59); #Neutrophils 10.5 thou/uL (1.40-6.50); %Basophils 0.2 % (0.0-1.0); %Eosinophils 0.4 % (0.0-10.0); %Lymphocytes 16.4 % (21.0-51.0); %Monocytes 5.9 % (0.0-10.0); %Neutrophils 77.2 % (42.0-75.0); Hemoglobin 10.8 g/dL (12.0-16.0); Mean Corpuscular HGB CONC 29.2 g/dL (32.0-36.0); Mean Corpuscular Volume 75.2 fL (78.0-98.0); Mean Platelet Volume 11.5 fL (7.4-10.4); Platelet Count 264 thou/uL (130-400); RBC Distribution Width 18.1 % (11.5-14.5); Red Blood Cell (RBC) Count 4.91 mill/uL (4.20-5.40); White Blood Cell (WBC) Count 13.6 thou/uL (4.8-10.8)
[2018-11-13 04:40] LABS: Anion Gap 11 mmol/L (10-20); BUN (Urea Nitrogen) 32 mg/dL (7.0-18.7); Calc. Creatinine Clearance 246 mL/min (70-130); Calcium 8.8 mg/dL (7.8-10.44); Carbon Dioxide 28 mmol/L (22-29); Chloride 104 mmol/L (98-107); Estimated GFR-MDRD 88; Glucose 148 mg/dL (70-105); Sodium 139 mmol/L (136-145)
--- NOTE | 2018-11-13 06:29 | PDOC.FM ---
- Subjective Subjective: 43 yo female seen at bedside this AM. Patient is intubated. She is awake, alert , and following commands. She shakes her head "no" to question of any pain. Per nursing staff, patient had a good night and is making steady progress. No other history is able to be obtained. - Objective Vital Signs & Weight: Vital Signs (12 hours) Temp Pulse Resp BP Pulse Ox 11/13/18 05:59 30 H 11/13/18 05:06 148/88 H 11/13/18 04:00 98.2 F 26 H 11/13/18 02:15 62 11/13/18 02:14 98 11/13/18 02:00 22 H 11/13/18 00:18 141/77 H 11/13/18 00:00 98.4 F 17 11/12/18 22:49 55 L 140/77 11/12/18 22:00 17 11/12/18 20:00 98.4 F 19 99 11/12/18 18:43 72 11/12/18 18:42 97 Weight Admit Weight 135.227 kg Weight 182.7 kg Most Recent Monitor Data Heart Rate from ECG 80 NIBP 152/95 NIBP BP-Mean 114 Respiration from ECG 32 SpO2 98 I&O: 11/11/18 11/12/18 11/13/18 06:59 06:59 06:59 Intake Total 3348 2562 2205.1 Output Total 3825 4055 4240 [facility] -477 -1493 -2034.9 Result Diagrams: 11/13/18 03:45 11/13/18 03:45 Phys Exam - Physical Examination Intubated ET in place Respiratory: no wheezing, clear to auscultation bilateral Cardiovascular: RRR, no significant murmur Gastrointestinal: soft, non-tender, no distention, positive bowel sounds Musculoskeletal: no edema, pulses present Neurological: non-focal, moves all 4 limbs Deviation from normal: intubated, but alert Skin: no rash Dx/Plan (1) Acute respiratory failure with hypoxia and hypercapnia Code(s): J96.01 - ACUTE RESPIRATORY FAILURE WITH HYPOXIA; J96.02 - ACUTE RESPIRATORY FAILURE WITH HYPERCAPNIA Status: Acute (2) Sepsis Code(s): A41.9 - SEPSIS, UNSPECIFIED ORGANISM Status: Resolved (3) CAP (community acquired pneumonia) Code(s): J18.9 - PNEUMONIA, UNSPECIFIED ORGANISM Status: Acute (4) HTN (hypertension) Code(s): I10 - ESSENTIAL (PRIMARY) HYPERTENSION Status: Acute (5) Elevated brain natriuretic peptide (BNP) level Code(s): R79.89 - OTHER SPECIFIED ABNORMAL FINDINGS OF BLOOD CHEMISTRY Status : Acute (6) CHERI (acute kidney injury) Code(s): N17.9 - ACUTE KIDNEY FAILURE, UNSPECIFIED Status: Resolved (7) Morbid obesity Code(s): E66.01 - MORBID (SEVERE) OBESITY DUE TO EXCESS CALORIES Status: Acute - Plan Plan: Acute hypoxic hypercapnic resp failure 2/2 PNA vs fluid overload - Improving - cont vent support per pulm guidance, Dr. Buck aiming for extubation by 11/15 - cont ABX - cont steroids - Duonebs increased to Q4H - AM ABG pending at this time multifocal PNA - initially septic, now resolved - cxr showed multifocal pna - 11/10/2018: Zosyn x 4 days, azithromycin x 5 days- cont all for now per pulm rec - Vancomycin d/c 11/11/18 - bronch lavage cx- neg - Blood culture- NGTD - influenza- neg - legionella and strep urine antigen-neg - procal- wnl HTN - amlodipine added on 11/08/2018 - vasotec added 11/09/2018 - HCTZ added 11/10/2018 - Nicardipine drip ordered, but not initiated - cont monitoring - PRN coverage for SBP > 180 or DBP >110 CHERI, resolved - Creatinine 0.85 this AM - Continue monitoring Elevated BNP - 11/06/2018- Echo: EF 55-60%, no suggestion of LV dysfunction - Total output 4240 with net negative -2034 ml - Will hold Lasix dose this AM as euvolemic. - Pulm added Diamox for supportive measure during diuresis hyperglycemia 2/2 aggressive IV steroids - A1C 4.4 - Steroids decreased - accuchecks well controlled morbid obesity - Could be component of Obesity Hypoventilation Syndrome - Pulm is considering tracheostomy if unable to fully wean from Ventilator Disposition: Stable, will continue current plan of care and continue to wean from ventilator.
[2018-11-13 07:00] LABS: Base Excess (BEa) 3.9 mEq/L (-2.0 to +3.0); Calcium, Ionized 1.22 mmol/L (1.12-1.30); Carboxyhemoglobin (COHb) 0.9 gm% (0.0-3.0); Hemoglobin (Hb) 11.6 g/dL (12.0-16.0); O2 Tension (PaO2) 60.6 mmHg (80.0-100.0); Potassium - ABG Lab 3.95 mmol/L (3.70-5.30); pH, Arterial 7.38 (7.35-7.45)
[2018-11-13 07:01] LABS: Puncture Site RRA
--- NOTE | 2018-11-13 07:22 | PDOC.EVN ---
Event Note - Event Note Event Note: Transition of Care Note 11/13/18 Please refer to documentation prior to 11/11/18 for additional history. Patient is a 43 yo female that presented to the ED on 11/05/18 for cough and SOB. Patient reported that symptoms began on 10/24/18. She was treated with one round of amoxicillin without relief. She states that during this time she had multiple episodes of hemoptysis. She also reports a fever as high as 104 at home. Patient also reports nausea, vomiting, and diarrhea that have been ongoing for the last 4 days. During this hospitalization, patient initially deteriorated and required intubation on 11/05/18. She was placed on broad spectrum antibiotics including Vancomycin, Zosyn, and Azithromycin. On 11/11/18 Vancomycin was discontinued due to negative blood cultures and no growth from her bronchoscopic lavage samples. Patient had an ECHO that showed EF 55-60% with a dilated IVC. Clinically pointing to volume overload. Since that time she has been cautiously diuresed to prevent any kidney injury. On admission and initially during this hospitalization, patient has had elevated blood pressures to 190/110s. She has had multiple blood pressure agents initiated with better overall control of her BP. This will need to continue to be titrated for optimal control as an outpatient. Patient was also started on Acetazolamide per Pulmonology to improve her acid/base status. Patient has continued to improve on the ventilator and her lab evaluation has essentially become unremarkable. Dr. Buck, Pulmonology, plans for extubation by 11/15/18 if not sooner. Her antibiotic therapy will likely be able to be discontinued in near future per pulmonology recommendations. Patient is currently uninsured and will likely require additional hospital days once she is extubated to ensure safe discharge home. Please contact with any questions or concerns.
--- NOTE | 2018-11-13 07:50 | RAD ---
EXAM: Portable chest PROVIDED CLINICAL HISTORY: Respiratory insufficiency COMPARISON: 11/12/2018 FINDINGS: Significant interval change with respect to the prior examination is not apparent. IMPRESSION: As above.
[2018-11-13] MEDS: Lisinopril 20 MG TAB PER TUBE SCH ×2 (08:23→21:18)
[2018-11-13] MEDS: acetaZOLAMIDE Sodium 500 mg Vial IVP SCH ×2 (08:23→21:17)
[2018-11-13] MEDS: Famotidine/PF 20 mg/2ml Vial SLOW IVP SCH ×2 (08:23→21:17)
[2018-11-13] MEDS: Enoxaparin Sodium 30 MG/0.3 ML SYRINGE SC SCH ×2 (08:23→21:17)
[2018-11-13] MEDS: methylPREDNISolone Sod Succ 40 MG VIAL IVP SCH ×2 (08:24→21:18)
--- NOTE | 2018-11-13 08:39 | PRG ---
DATE OF SERVICE: 11/13/2018 TIME SPENT: 35 minutes of critical care time. SUBJECTIVE: The patient remains intubated on mechanical ventilation. She will wake up and follow commands. She was tried on spontaneous breathing this morning. She has a very borderline respiratory mechanics. OBJECTIVE: VITAL SIGNS: Temperature is 98.2, pulse 80, blood pressure 152/95, and O2 saturation 98%, currently on propofol drip. HEENT: Endotracheal tube in place. NECK: No JVD. CHEST: Fairly clear anteriorly. CARDIAC: S1 and S2. Regular. ABDOMEN: Obese. Soft. EXTREMITIES: Obese. LABORATORY DATA: Sodium 139, potassium 4, chloride 104, CO2 of 28, BUN 35, creatinine 0.8, and glucose 148. A pH 7.3, pCO2 of 52, pO2 of 60, that is on SIMV rate 10, tidal volume 400, PEEP 6, pressure support 12, and FiO2 of 40%. White blood cell count 13.6, hematocrit 36.9, and platelet count 264. Chest x-ray shows some clearing. ASSESSMENT: 1. Acute respiratory failure secondary to pneumonia. 2. Morbid obesity. 3. Bacterial pneumonia. PLAN: 1. Spontaneous breathing trials, hopefully extubate in the next 48 hours if she does well. 2. Continue antibiotics. 3. Hold diuresis. 4. Switch over to nicardipine drip in hopes of getting her more awake. Job ID: [id number]
[2018-11-13] MEDS: Amlodipine 10 MG TAB PER TUBE SCH (11:00)
[2018-11-13 15:00] VITALS: BMI 63.1
[2018-11-13] MEDS: Azithromycin 500 MG in Sodium Chloride 0.9% 250 ML 250 ML IVPB SCH (16:07)
[2018-11-14] MEDS: Piperacillin/Tazobactam 4.5 GM in Sodium Chloride 0.9% 100 ML IVPB SCH ×4 (00:18→18:43)
[2018-11-14 05:12] LABS: #Eosinphils 0.1 thou/uL (0.0-0.7); #Lymphocytes 1.3 thou/uL (1.20-3.40); #Monocytes 0.5 thou/uL (0.11-0.59); #Neutrophils 6.4 thou/uL (1.40-6.50); %Basophils 0.6 % (0.0-1.0); %Eosinophils 0.7 % (0.0-10.0); %Lymphocytes 15.2 % (21.0-51.0); %Monocytes 5.8 % (0.0-10.0); %Neutrophils 77.8 % (42.0-75.0); Hemoglobin 10.8 g/dL (12.0-16.0); Mean Corpuscular HGB CONC 29.3 g/dL (32.0-36.0); Mean Corpuscular Hemoglobin 21.8 pg (27.0-31.0); Mean Corpuscular Volume 74.3 fL (78.0-98.0); Mean Platelet Volume 7.9 fL (7.4-10.4); Platelet Count 251 thou/uL (130-400); Red Blood Cell (RBC) Count 4.94 mill/uL (4.20-5.40); White Blood Cell (WBC) Count 8.3 thou/uL (4.8-10.8)
[2018-11-14 05:31] LABS: Anion Gap 8 mmol/L (10-20); BUN (Urea Nitrogen) 25 mg/dL (7.0-18.7); Calc. Creatinine Clearance 279 mL/min (70-130); Calcium 8.8 mg/dL (7.8-10.44); Carbon Dioxide 26 mmol/L (22-29); Chloride 108 mmol/L (98-107); Estimated GFR-MDRD Greater than 90; Glucose 162 mg/dL (70-105); Potassium 4.2 mmol/L (3.5-5.1); Sodium 138 mmol/L (136-145)
--- NOTE | 2018-11-14 05:58 | PDOC.FM ---
- Subjective Subjective: Ashia Shetty seen at bedside. She is intubated undergoing spontaneous breathing trial, she is responsive, follow commands, and denies any pain. She did well overnight, there were no acute events or changes. BPs have remained stable on nicardipine gtt. She is lightly sedated with precedex. Plan is to extubate this morning. ABG this morning: pH 7.31, pCO2 50.6, pO2 96.6 - Objective MAR Reviewed: Yes Vital Signs & Weight: Vital Signs (12 hours) Temp Pulse Resp BP Pulse Ox 11/14/18 04:00 98.0 F 26 H 11/14/18 02:21 54 L 141/89 H 11/14/18 02:00 25 H 11/14/18 00:00 97.9 F 28 H 11/13/18 22:06 74 131/78 11/13/18 22:00 28 H 11/13/18 21:18 140/79 11/13/18 20:00 98.4 F 96 11/13/18 18:26 63 134/67 11/13/18 18:00 26 H Weight Admit Weight 135.227 kg Weight 182.7 kg Most Recent Monitor Data Heart Rate from ECG 51 NIBP 127/77 NIBP BP-Mean 93 Respiration from ECG 22 SpO2 99 I&O: 11/12/18 11/13/18 11/14/18 06:59 06:59 06:59 Intake Total 2562 2205.1 2472 Output Total 4055 4240 2295 Balance -1493 -2034.9 177 Result Diagrams: 11/14/18 04:50 11/14/18 04:50 Phys Exam - Physical Examination Constitutional: NAD intubated, spontaneously breathing HEENT: moist MMs, sclera anicteric Neck: no JVD, supple, full ROM Respiratory: no rales, no rhonchi, wheezing present, clear to auscultation bilateral mild expiratory wheezes b/l Cardiovascular: RRR, no significant murmur Gastrointestinal: soft, non-tender, positive bowel sounds Musculoskeletal: pulses present Neurological: non-focal, normal sensation, moves all 4 limbs Deviation from normal: responsive to questions, follows commands Skin: no rash, cap refill <2 seconds Dx/Plan (1) Acute respiratory failure with hypoxia and hypercapnia Code(s): J96.01 - ACUTE RESPIRATORY FAILURE WITH HYPOXIA; J96.02 - ACUTE RESPIRATORY FAILURE WITH HYPERCAPNIA Status: Acute (2) CAP (community acquired pneumonia) Code(s): J18.9 - PNEUMONIA, UNSPECIFIED ORGANISM Status: Acute (3) Elevated brain natriuretic peptide (BNP) level Code(s): R79.89 - OTHER SPECIFIED ABNORMAL FINDINGS OF BLOOD CHEMISTRY Status : Acute (4) HTN (hypertension) Code(s): I10 - ESSENTIAL (PRIMARY) HYPERTENSION Status: Chronic (5) Morbid obesity Code(s): E66.01 - MORBID (SEVERE) OBESITY DUE TO EXCESS CALORIES Status: Chronic (6) BERNICE (obstructive sleep apnea) Code(s): G47.33 - OBSTRUCTIVE SLEEP APNEA (ADULT) (PEDIATRIC) Status: Chronic - Plan Plan: Acute hypoxic hypercapnic resp failure 2/2 PNA vs fluid overload - Improving - cont vent support per pulm guidance, Dr. Buck aiming for extubation by 11/15 - cont ABX - cont steroids - Duonebs increased to Q4H - AM ABG pending at this time - spontaneous breathing trial this morning per pulm, awakens to and follows commands - plan is to extubate this morning, may need bipap for a time. multifocal PNA - initially septic, now resolved - cxr showed multifocal pna - 11/10/2018: Zosyn x 4 days, azithromycin x 5 days- cont all for now per pulm rec - Vancomycin d/c 11/11/18 - bronch lavage cx- neg - Blood culture- NGTD - influenza- neg - legionella and strep urine antigen-neg - procal- wnl HTN - well controlled at this time - amlodipine added on 11/08/2018 - vasotec added 11/09/2018 - HCTZ added 11/10/2018 - Nicardipine drip added 11/13/18 - cont monitoring - PRN coverage for SBP > 180 or DBP >110 CHERI, resolved - Creatinine 0.75 this AM - Continue monitoring Elevated BNP - 11/06/2018- Echo: EF 55-60%, no suggestion of LV dysfunction - I/O: net negative about 3.5 L - Pulm added Diamox for supportive measure during diuresis - one dose lasix given this morning hyperglycemia 2/2 aggressive IV steroids - A1C 4.4 - Steroids decreased - accuchecks well controlled morbid obesity - Could be component of Obesity Hypoventilation Syndrome - Pulm is considering tracheostomy if unable to fully wean from Ventilator Disposition: Stable, extubate this morning and monitor in ICU today Addendum - Attending - Attending Attestation Date/Time: 11/14/18 1113 I personally evaluated the patient and discussed the management with Dr. Hubbard. I agree with and repeated the History, Examination, Assessment and Plan documented above with any addition or exceptions noted below. Extubated, feeling good with no sob/cp/n/v/f/c. Exam RRR s m/g/r; lungs CTAB this AM. Continue antibiotics, gentle diuresis and begin PT/OT and mobilization.
[2018-11-14 06:53] LABS: Actual Bicarbonate (HCO3a) 24.8 mEq/L (22-28); Base Excess (BEa) -1.9 mEq/L (-2.0 to +3.0); CO2 Tension 50.6 mmHg (35.0-45.0); Calcium, Ionized 1.28 mmol/L (1.12-1.30); Carboxyhemoglobin (COHb) 0.8 gm% (0.0-3.0); Hemoglobin (Hb) 11.7 g/dL (12.0-16.0); O2 Tension (PaO2) 96.6 mmHg (80.0-100.0); pH, Arterial 7.31 (7.35-7.45)
[2018-11-14 06:54] LABS: Puncture Site LRA
--- NOTE | 2018-11-14 07:37 | RAD ---
EXAM: Single view of the chest HISTORY: Pneumonia COMPARISON: 11/13/2018 FINDINGS: Single view of the chest shows an enlarged but stable cardiomediastinal silhouette. The end otracheal tube and NG tube are unchanged in position. Opacity is again seen in the inferior right tho rax which may represent a small pleural effusion and adjacent atelectasis. IMPRESSION: Stable exam
[2018-11-14] MEDS ORDERED: DC Sedation Protocol FS ONE (07:44)
[2018-11-14] MEDS ORDERED: Furosemide 40 MG/4 ML VIAL SLOW IVP SCH (08:00)
[2018-11-14] MEDS: Famotidine/PF 20 mg/2ml Vial SLOW IVP SCH ×2 (08:23→21:18)
[2018-11-14] MEDS: Enoxaparin Sodium 30 MG/0.3 ML SYRINGE SC SCH ×2 (08:23→21:18)
[2018-11-14] MEDS: methylPREDNISolone Sod Succ 40 MG VIAL IVP SCH ×2 (08:23→21:18)
[2018-11-14] MEDS: Lisinopril 20 MG TAB PER TUBE SCH ×2 (08:24→21:00)
--- NOTE | 2018-11-14 09:35 | PRG ---
DATE OF SERVICE: 11/14/2018 SUBJECTIVE: The patient is awake, indicates that she wants her tube out. She has been on a very low amount of pressure support in mechanical ventilation this morning. OBJECTIVE: VITAL SIGNS: Her temperature is 98, pulse 60, blood pressure 128/76. A 24-hour intake 2472, output 2395. HEENT: Unremarkable except for the endotracheal tube. NECK: No JVD. LUNGS: A few coarse rhonchi bilaterally, overall improved since admission. CARDIAC: S1, S2. Regular. ABDOMEN: Obese, soft, nontender. EXTREMITIES: No edema. LABORATORY DATA: Sodium 138, potassium 4.2, BUN 25, creatinine 0.7, glucose 162. White blood cell count 8.3, hematocrit 36.7, platelet count 251. Her chest x-ray is about the same. ASSESSMENT: 1. Pneumonia. 2. Acute on chronic hypoxic respiratory failure, requiring mechanical ventilation. 3. Likely underlying obstructive sleep apnea. 4. Malignant hypertension. PLAN: I believe we can extubate her. She can be on BiPAP as needed for sleep apnea symptoms and refractory hypoxemia. We will continue low-dose steroids and continue the antibiotics. I will go ahead and give her 1 dose of Lasix IV. Job ID: [id number]
[2018-11-14] MEDS: acetaZOLAMIDE Sodium 500 mg Vial IVP SCH ×2 (10:24→21:17)
[2018-11-14] MEDS: Amlodipine 10 MG TAB PER TUBE SCH (12:20)
[2018-11-14] MEDS: Azithromycin 500 MG in Sodium Chloride 0.9% 250 ML 250 ML IVPB SCH (15:08)
[2018-11-15] MEDS: Piperacillin/Tazobactam 4.5 GM in Sodium Chloride 0.9% 100 ML IVPB SCH ×2 (00:30→05:22)
[2018-11-15 05:50] LABS: #Eosinphils 0.3 thou/uL (0.0-0.7); #Monocytes 0.9 thou/uL (0.11-0.59); %Basophils 0.3 % (0.0-1.0); %Eosinophils 2.6 % (0.0-10.0); %Monocytes 8.1 % (0.0-10.0); Hemoglobin 10.9 g/dL (12.0-16.0); Mean Corpuscular HGB CONC 29.6 g/dL (32.0-36.0); Mean Corpuscular Hemoglobin 22.2 pg (27.0-31.0); Mean Corpuscular Volume 74.9 fL (78.0-98.0); Mean Platelet Volume 10.9 fL (7.4-10.4); Platelet Count 278 thou/uL (130-400); Red Blood Cell (RBC) Count 4.93 mill/uL (4.20-5.40); White Blood Cell (WBC) Count 11.2 thou/uL (4.8-10.8)
[2018-11-15 05:57] LABS: Anion Gap 9 mmol/L (10-20); BUN (Urea Nitrogen) 24 mg/dL (7.0-18.7); Calc. Creatinine Clearance 265 mL/min (70-130); Carbon Dioxide 27 mmol/L (22-29); Chloride 109 mmol/L (98-107); Estimated GFR-MDRD Greater than 90; Glucose 123 mg/dL (70-105); Potassium 3.6 mmol/L (3.5-5.1); Sodium 141 mmol/L (136-145)
--- NOTE | 2018-11-15 06:02 | PDOC.FM ---
- Subjective Subjective: Ashia Shetty seen at bedside this morning. She has no complaints and there were no acute events overnight. She was extubated yesterday and has been doing well from a respiratory standpoint since that time, tolerating NC well. She denies any fever, chills, chest pain, dyspnea, abdominal pain, n/v. - Objective MAR Reviewed: Yes Vital Signs & Weight: Vital Signs (12 hours) Temp Pulse Resp BP Pulse Ox 11/15/18 04:00 97.8 F 11/15/18 02:04 85 17 90 L 11/15/18 00:00 98.3 F 11/14/18 22:14 80 21 H 100 11/14/18 21:00 131/75 11/14/18 20:00 97.9 F 100 11/14/18 18:37 78 19 92 L Weight Admit Weight 135.227 kg Weight 182.7 kg Most Recent Monitor Data Heart Rate from ECG 78 NIBP 138/76 NIBP BP-Mean 96 Respiration from ECG 31 SpO2 100 I&O: 11/13/18 11/14/18 11/15/18 06:59 06:59 06:59 Intake Total 2205.1 2472 2296.7 Output Total 4240 2395 4015 Balance -2034.9 77 -1718.3 Result Diagrams: 11/15/18 05:20 11/15/18 05:20 Phys Exam - Physical Examination Constitutional: NAD HEENT: moist MMs, sclera anicteric Neck: no JVD, supple, full ROM Respiratory: no wheezing, no rales, no rhonchi, clear to auscultation bilateral Cardiovascular: RRR, no significant murmur Gastrointestinal: soft, non-tender, no distention Musculoskeletal: no edema, pulses present Neurological: normal sensation, moves all 4 limbs Psychiatric: normal affect, A&O x 3 Skin: no rash Dx/Plan (1) Acute respiratory failure with hypoxia and hypercapnia Code(s): J96.01 - ACUTE RESPIRATORY FAILURE WITH HYPOXIA; J96.02 - ACUTE RESPIRATORY FAILURE WITH HYPERCAPNIA Status: Acute (2) CAP (community acquired pneumonia) Code(s): J18.9 - PNEUMONIA, UNSPECIFIED ORGANISM Status: Acute (3) Elevated brain natriuretic peptide (BNP) level Code(s): R79.89 - OTHER SPECIFIED ABNORMAL FINDINGS OF BLOOD CHEMISTRY Status : Acute (4) HTN (hypertension) Code(s): I10 - ESSENTIAL (PRIMARY) HYPERTENSION Status: Chronic (5) Morbid obesity Code(s): E66.01 - MORBID (SEVERE) OBESITY DUE TO EXCESS CALORIES Status: Chronic (6) BERNICE (obstructive sleep apnea) Code(s): G47.33 - OBSTRUCTIVE SLEEP APNEA (ADULT) (PEDIATRIC) Status: Chronic - Plan Plan: Acute hypoxic hypercapnic resp failure 2/2 PNA vs fluid overload - Improving - cont vent support per pulm guidance, Dr. Buck aiming for extubation by 11/15 - cont ABX: zosyn and azithro - cont low dose steroids - Duonebs increased to Q4H - extubated 11/14/18, bipap available prn for hypoxemia multifocal PNA - initially septic, now resolved - cxr showed multifocal pna - 11/10/2018: Zosyn, azithromycin- cont all for now per pulm rec, will likely need a full 10-14 days of abx - Vancomycin d/c 11/11/18 - bronch lavage cx- neg - Blood culture- NGTD - influenza- neg - legionella and strep urine antigen-neg - procal- wnl HTN - well controlled at this time - amlodipine added on 11/08/2018 - vasotec added 11/09/2018 - HCTZ added 11/10/2018 - Nicardipine drip added 11/13/18 but has not been used - cont monitoring - PRN coverage for SBP > 180 or DBP >110 CHERI, resolved - Creatinine 0.79 this morning - Continue monitoring Elevated BNP - 11/06/2018- Echo: EF 55-60%, no suggestion of LV dysfunction - I/O: net negative about 5 L - Pulm added Diamox for supportive measure during diuresis - diuresed well after additional dose of lasix yesterday morning hyperglycemia 2/2 aggressive IV steroids - A1C 4.4 - Steroids decreased - accuchecks well controlled morbid obesity - Could be component of Obesity Hypoventilation Syndrome - Pulm is considering tracheostomy if unable to fully wean from Ventilator Disposition: Stable, will possibly move out of ICU today Addendum - Attending - Attending Attestation Date/Time: 11/15/18 1046 I personally evaluated the patient and discussed the management with Dr. Hbubard. I agree with the History, Examination, Assessment and Plan documented above with any addition or exceptions noted below.
[2018-11-15] MEDS: Famotidine/PF 20 mg/2ml Vial SLOW IVP SCH (07:52)
[2018-11-15] MEDS: Enoxaparin Sodium 30 MG/0.3 ML SYRINGE SC SCH ×2 (07:52→19:49)
[2018-11-15] MEDS: methylPREDNISolone Sod Succ 40 MG VIAL IVP SCH (07:53)
[2018-11-15] MEDS: Lisinopril 20 MG TAB PER TUBE SCH ×2 (07:53→19:50)
--- NOTE | 2018-11-15 08:07 | RAD ---
CHEST 1 VIEW: Date: 11/15/18 COMPARISON: 11/14/18. HISTORY: Pneumonia. FINDINGS: Persistent cardiomegaly. Costophrenic angles are clear. Stable opacities in the lung bases. No pneumo thorax. Interval removal of ET and NG tube. IMPRESSION: Interval removal of endotracheal and nasogastric tube. Otherwise, no significant change. POS: OFF
--- NOTE | 2018-11-15 08:59 | PRG ---
DATE OF SERVICE: 11/15/2018 SUBJECTIVE: She was extubated yesterday. She has done well since. She has no acute complaints. OBJECTIVE: VITAL SIGNS: Temperature 97.9, pulse 86, blood pressure 120/83, O2 saturation 100%. HEENT: Unremarkable. NECK: No JVD. CHEST: Fairly clear anteriorly. CARDIAC: S1, S2. Regular. ABDOMEN: Obese, soft, nontender. EXTREMITIES: No overt edema. LABORATORY DATA: Sodium 141, potassium 3.6, chloride 109, CO2 of 27, BUN 24, creatinine 0.7, glucose 123. White count 11.2, hematocrit 37, platelet count 278. Chest x-ray shows vast improvement. ASSESSMENT: 1. Bilateral community-acquired pneumonia. 2. Acute respiratory failure requiring mechanical ventilation, now extubated. 3. Probable underlying obstructive sleep apnea. 4. Malignant hypertension. PLAN: 1. She will be transferred to the medical floor. 2. Continue physical therapy and occupational therapy. 3. She will need a sleep study as an outpatient. 4. Finish out 3 more days of oral antibiotics. 5. Discontinue steroids. Job ID: [id number]
[2018-11-15] MEDS: acetaZOLAMIDE Sodium 500 mg Vial IVP SCH (09:02)
[2018-11-15] MEDS: Cefdinir 300 MG CAP PO SCH (09:03)
[2018-11-15] MEDS ORDERED: AcetaZOLAMIDE 250 MG TAB PO SCH ×2 (14:30→21:00)
[2018-11-15] MEDS ORDERED: Famotidine 20 MG TAB PO SCH ×2 (14:30→21:00)
[2018-11-15] MEDS: Amlodipine 10 MG TAB PER TUBE SCH (14:42)
[2018-11-15] MEDS: Famotidine 20 MG TAB PO SCH (19:49)
--- NOTE | 2018-11-16 06:37 | PDOC.FM ---
- Subjective Subjective: Ms. Shetty says she is excited for a shower today. Denies SOB, cough, difficulty breathing. Denies CP, N/V. Tolerating PO intake well. - Objective MAR Reviewed: Yes Vital Signs & Weight: Vital Signs (12 hours) Temp Pulse Resp BP BP Pulse Ox 11/16/18 02:37 22 H 94 L 11/15/18 19:50 143/83 H 11/15/18 19:47 97.5 F L 88 20 143/83 H 93 L 11/15/18 18:39 95 11/15/18 18:38 95 Weight Admit Weight 135.227 kg Weight 182.7 kg Most Recent Monitor Data Heart Rate from ECG 92 NIBP 138/97 NIBP BP-Mean 110 Respiration from ECG 19 SpO2 100 I&O: 11/14/18 11/15/18 11/16/18 06:59 06:59 06:59 Intake Total 2472 2296.7 960 Output Total 2395 4065 1320 Balance 77 -1768.3 -360 Result Diagrams: 11/15/18 05:20 11/16/18 05:58 Phys Exam - Physical Examination Constitutional: NAD Respiratory: clear to auscultation bilateral Cardiovascular: RRR, no significant murmur Gastrointestinal: soft, non-tender, positive bowel sounds Musculoskeletal: no edema Neurological: non-focal Psychiatric: normal affect Skin: normal turgor Dx/Plan (1) Acute respiratory failure with hypoxia and hypercapnia Code(s): J96.01 - ACUTE RESPIRATORY FAILURE WITH HYPOXIA; J96.02 - ACUTE RESPIRATORY FAILURE WITH HYPERCAPNIA Status: Acute (2) CAP (community acquired pneumonia) Code(s): J18.9 - PNEUMONIA, UNSPECIFIED ORGANISM Status: Acute (3) Elevated brain natriuretic peptide (BNP) level Code(s): R79.89 - OTHER SPECIFIED ABNORMAL FINDINGS OF BLOOD CHEMISTRY Status : Acute (4) HTN (hypertension) Code(s): I10 - ESSENTIAL (PRIMARY) HYPERTENSION Status: Chronic (5) Morbid obesity Code(s): E66.01 - MORBID (SEVERE) OBESITY DUE TO EXCESS CALORIES Status: Chronic (6) BERNICE (obstructive sleep apnea) Code(s): G47.33 - OBSTRUCTIVE SLEEP APNEA (ADULT) (PEDIATRIC) Status: Chronic (7) CHERI (acute kidney injury) Code(s): N17.9 - ACUTE KIDNEY FAILURE, UNSPECIFIED Status: Resolved - Plan Plan: Acute hypoxic hypercapnic resp failure 2/2 PNA vs fluid overload - Improving, extubated 11/14/18, satting well on RA - cont ABX: zosyn and azithro - steroids discontinued - Duonebs Q4H Multifocal PNA - initially septic, now resolved - cxr showed multifocal pna - 11/10/2018: Zosyn, azithromycin- will likely need a full 10-14 days of abx - Vancomycin d/c 11/11/18 - bronch lavage cx- neg - Blood culture- NGTD - influenza- neg - legionella and strep urine antigen-neg - procal- wnl HTN - well controlled at this time - amlodipine added on 11/08/2018 - vasotec added 11/09/2018 - HCTZ added 11/10/2018 - Nicardipine drip added 11/13/18 but has not been used - cont monitoring - PRN coverage for SBP > 180 or DBP >110 CHERI, resolved - Creatinine 0.79 this morning - Continue monitoring Elevated BNP - 11/06/2018- Echo: EF 55-60%, no suggestion of LV dysfunction - I/O: net negative about 5 L - Pulm added Diamox hyperglycemia 2/2 aggressive IV steroids - A1C 4.4 - Steroids decreased - accuchecks well controlled morbid obesity - Could be component of Obesity Hypoventilation Syndrome Disposition: Stable, continue to work with PT Addendum - Attending - Attending Attestation Date/Time: 11/16/18 1005 I personally evaluated the patient and discussed the management with Dr. Kessler I agree with the History, Examination, Assessment and Plan documented above with any addition or exceptions noted below. Continue PT for deconditioning s/p 9 day intubation. Continue course of abx. Expect d/c early next week.
[2018-11-16 07:05] LABS: Anion Gap 13 mmol/L (10-20); BUN (Urea Nitrogen) 23 mg/dL (7.0-18.7); Calc. Creatinine Clearance 291 mL/min (70-130); Calcium 8.7 mg/dL (7.8-10.44); Carbon Dioxide 22 mmol/L (22-29); Chloride 111 mmol/L (98-107); Estimated GFR-MDRD Greater than 90; Glucose 108 mg/dL (70-105); Potassium 3.5 mmol/L (3.5-5.1); Sodium 142 mmol/L (136-145)
[2018-11-16] MEDS: Cefdinir 300 MG CAP PO SCH (07:54)
[2018-11-16] MEDS: Lisinopril 20 MG TAB PER TUBE SCH ×2 (07:55→21:47)
[2018-11-16] MEDS: Famotidine 20 MG TAB PO SCH ×2 (07:55→21:47)
[2018-11-16] MEDS: AcetaZOLAMIDE 250 MG TAB PO SCH (07:56)
[2018-11-16] MEDS: Enoxaparin Sodium 30 MG/0.3 ML SYRINGE SC SCH ×2 (07:56→21:47)
--- NOTE | 2018-11-16 12:00 | PRG ---
DATE OF SERVICE: 11/16/2018 SUBJECTIVE: Morbidly obese female with BMI of greater than 60, 402 pounds. This morning, she says she is better. OBJECTIVE: VITAL SIGNS: Saturations are 98% on room, respirations 16, temperature 98, blood pressure 146/89. CHEST: Decreased breath sounds. No wheezing. CARDIAC: Normal S1, S2. No gallops. ABDOMEN: Soft without mass. IMPRESSION: Morbid obesity, probably sleep apnea. Severe deconditioning. Also, x-ray shows questionable left-sided pneumonia. PLAN: Continue antibiotics, neb treatments, supportive care, eventually placement. Job ID: [id number]
--- NOTE | 2018-11-16 14:34 | EKG ---
Test Reason : Blood Pressure : / mmHG Vent. Rate : 097 BPM Atrial Rate : 097 BPM P-R Int : 152 ms QRS Dur : 102 ms QT Int : 356 ms P-R-T Axes : 059 061 036 degrees QTc Int : 452 ms Normal sinus rhythm Possible Left atrial enlargement Borderline ECG Confirmed by LAWRENCE LARES ([id number]), production editor PERCY CONROY ([id number]) on 11/16/2018 2:34:11 PM Referred By: Confirmed By:LAWRENCE LARES
[2018-11-16] MEDS: Amlodipine 10 MG TAB PER TUBE SCH (14:35)
[2018-11-17 06:25] LABS: Anion Gap 12 mmol/L (10-20); BUN (Urea Nitrogen) 21 mg/dL (7.0-18.7); Calc. Creatinine Clearance 303 mL/min (70-130); Calcium 8.9 mg/dL (7.8-10.44); Carbon Dioxide 23 mmol/L (22-29); Chloride 109 mmol/L (98-107); Estimated GFR-MDRD Greater than 90; Glucose 80 mg/dL (70-105); Potassium 3.1 mmol/L (3.5-5.1); Sodium 141 mmol/L (136-145)
[2018-11-17] MEDS ORDERED: Potassium Chloride 20 MEQ TAB PO SCH (06:30)
--- NOTE | 2018-11-17 06:30 | PDOC.FM ---
- Subjective Subjective: Ms. Shetty says she is feeling good today. Looking forward to a shower. Says she has started to have a period yesterday. She has not had one for a year. Last pap [facility] 08[facility]. PT did not see her yesterday. - Objective Vital Signs & Weight: Vital Signs (12 hours) Temp Pulse Resp BP BP Pulse Ox 11/17/18 01:44 114 H 20 97 11/16/18 21:54 88 16 98 11/16/18 21:47 129/81 11/16/18 19:22 98.6 F 87 20 129/81 100 11/16/18 19:13 88 16 91 L Weight Admit Weight 135.227 kg Weight 182.7 kg Most Recent Monitor Data Heart Rate from ECG 92 NIBP 138/97 NIBP BP-Mean 110 Respiration from ECG 19 SpO2 100 I&O: 11/15/18 11/16/18 11/17/18 06:59 06:59 06:59 Intake Total 2296.7 960 1460 Output Total 4065 1320 950 Balance -1768.3 -360 510 Result Diagrams: 11/15/18 05:20 11/17/18 05:08 Phys Exam - Physical Examination Constitutional: NAD Respiratory: clear to auscultation bilateral (anteriorly) Cardiovascular: RRR, no significant murmur Gastrointestinal: soft Neurological: non-focal Psychiatric: normal affect Skin: normal turgor Dx/Plan (1) Acute respiratory failure with hypoxia and hypercapnia Code(s): J96.01 - ACUTE RESPIRATORY FAILURE WITH HYPOXIA; J96.02 - ACUTE RESPIRATORY FAILURE WITH HYPERCAPNIA Status: Acute (2) CAP (community acquired pneumonia) Code(s): J18.9 - PNEUMONIA, UNSPECIFIED ORGANISM Status: Acute (3) Elevated brain natriuretic peptide (BNP) level Code(s): R79.89 - OTHER SPECIFIED ABNORMAL FINDINGS OF BLOOD CHEMISTRY Status : Acute (4) HTN (hypertension) Code(s): I10 - ESSENTIAL (PRIMARY) HYPERTENSION Status: Chronic (5) Morbid obesity Code(s): E66.01 - MORBID (SEVERE) OBESITY DUE TO EXCESS CALORIES Status: Chronic (6) BERNICE (obstructive sleep apnea) Code(s): G47.33 - OBSTRUCTIVE SLEEP APNEA (ADULT) (PEDIATRIC) Status: Chronic (7) CHERI (acute kidney injury) Code(s): N17.9 - ACUTE KIDNEY FAILURE, UNSPECIFIED Status: Resolved - Plan Plan: Acute hypoxic hypercapnic resp failure 2/2 PNA vs fluid overload - Improving, extubated 11/14/18, satting well on RA - cont ABX: omnicef - will need a full 10-14 days of abx - steroids discontinued - Duonebs Q4H Multifocal PNA - initially septic, now resolved - cxr showed multifocal pna - Vancomycin, zosyn, azithro d/c - bronch lavage cx- neg - Blood culture- NGTD - influenza- neg - legionella and strep urine antigen-neg - procal- wnl HTN - well controlled at this time - amlodipine added on 11/08/2018 - vasotec added 11/09/2018 - HCTZ added 11/10/2018 - Nicardipine drip added 11/13/18 but has not been used - cont monitoring - PRN coverage for SBP > 180 or DBP >110 Physical deconditioning - continue PT/OT Hypokalemia - replaced with PO KCl, recheck in am CHERI, resolved - Creatinine 0.79 this morning - Continue monitoring Elevated BNP - 11/06/2018- Echo: EF 55-60%, no suggestion of LV dysfunction - I/O: net negative about 5 L - Pulm added Diamox hyperglycemia 2/2 aggressive IV steroids - A1C 4.4 - Steroids decreased - accuchecks well controlled morbid obesity - Could be component of Obesity Hypoventilation Syndrome Disposition: Stable, continue to work with PT to get back to baseline Addendum - Attending - Attending Attestation Date/Time: 11/17/18 1220 I personally evaluated the patient and discussed the management with Dr. Kessler. I agree with the History, Examination, Assessment and Plan documented above with any addition or exceptions noted below. Recovering well. COntinue PT, nebs and supportive care Severe deconditioning- work with PT to determine placement vs HH needs Vaginal bleeding- remove healy today. Consider vag u/s if persistent over next few days.
[2018-11-17] MEDS: AcetaZOLAMIDE 250 MG TAB PO SCH (09:07)
[2018-11-17] MEDS: Lisinopril 20 MG TAB PER TUBE SCH ×2 (09:07→20:09)
[2018-11-17] MEDS: Cefdinir 300 MG CAP PO SCH (09:07)
[2018-11-17] MEDS: Famotidine 20 MG TAB PO SCH ×2 (09:08→20:09)
[2018-11-17] MEDS: Enoxaparin Sodium 30 MG/0.3 ML SYRINGE SC SCH ×2 (09:08→20:08)
[2018-11-17] MEDS: Amlodipine 10 MG TAB PER TUBE SCH (12:03)
--- NOTE | 2018-11-17 12:07 | PRG ---
DATE OF SERVICE: 11/17/2018 SUBJECTIVE: Morbidly obese female. Denies any pain. Denies difficulty breathing. OBJECTIVE: VITAL SIGNS: Sats are 98% on room air, respiratory rate 20, temperature 98, blood pressure 129/79. CHEST: No wheezing. CARDIAC: Normal S1, S2. No gallops. ABDOMEN: No masses. IMPRESSION: Morbid obesity, sleep apnea, severe deconditioning, pneumonia. DISPOSITION: As per primary care physician. Continue aggressive PT, supportive care. We will follow. Job ID: [id number]
[2018-11-17] MEDS: diphenhydrAMINE 25 MG CAP PO PRN ×2 (13:26→20:09)
--- NOTE | 2018-11-18 06:35 | PDOC.FM ---
- Subjective Subjective: Ashia Shetty seen at bedside this morning. There were no acute events overnight. She has been participating with PT. Pt states that she has sensitive skin and she has been breaking out in a rash every once in a while but it improves with benadryl. She denies fever, chills, chest pain, dyspnea, n /v, abdominal pain. She is nearing discharge. - Objective MAR Reviewed: Yes Vital Signs & Weight: Vital Signs (12 hours) Temp Pulse Resp BP BP Pulse Ox 11/18/18 06:13 100 20 91 L 11/18/18 02:23 91 L 11/18/18 02:17 88 16 90 L 11/17/18 22:13 100 200 H 11/17/18 20:09 130/80 11/17/18 20:00 98.5 F 97 20 130/80 91 L 11/17/18 18:36 90 22 H 91 L Weight Admit Weight 135.227 kg Weight 182.7 kg Most Recent Monitor Data Heart Rate from ECG 92 NIBP 138/97 NIBP BP-Mean 110 Respiration from ECG 19 SpO2 100 I&O: 11/16/18 11/17/18 11/18/18 06:59 06:59 06:59 Intake Total 960 1460 130 Output Total 1320 1450 800 Balance -360 10 -917 Result Diagrams: 11/15/18 05:20 11/18/18 05:28 Phys Exam - Physical Examination Constitutional: NAD morbidly obese HEENT: moist MMs, sclera anicteric Neck: no JVD, supple, full ROM Respiratory: no wheezing, no rales, no rhonchi, clear to auscultation bilateral Cardiovascular: RRR, no significant murmur Gastrointestinal: soft, non-tender, positive bowel sounds Musculoskeletal: no edema, pulses present Neurological: normal sensation, moves all 4 limbs Psychiatric: normal affect, A&O x 3 Skin: cap refill <2 seconds Deviation from normal: dry skin Dx/Plan (1) Acute respiratory failure with hypoxia and hypercapnia Code(s): J96.01 - ACUTE RESPIRATORY FAILURE WITH HYPOXIA; J96.02 - ACUTE RESPIRATORY FAILURE WITH HYPERCAPNIA Status: Resolved (2) CAP (community acquired pneumonia) Code(s): J18.9 - PNEUMONIA, UNSPECIFIED ORGANISM Status: Acute (3) Elevated brain natriuretic peptide (BNP) level Code(s): R79.89 - OTHER SPECIFIED ABNORMAL FINDINGS OF BLOOD CHEMISTRY Status : Acute (4) HTN (hypertension) Code(s): I10 - ESSENTIAL (PRIMARY) HYPERTENSION Status: Chronic (5) Morbid obesity Code(s): E66.01 - MORBID (SEVERE) OBESITY DUE TO EXCESS CALORIES Status: Chronic (6) BERNICE (obstructive sleep apnea) Code(s): G47.33 - OBSTRUCTIVE SLEEP APNEA (ADULT) (PEDIATRIC) Status: Chronic - Plan Plan: Acute hypoxic hypercapnic resp failure 2/2 PNA vs fluid overload - Improving, extubated 11/14/18, satting well on RA - cont ABX: omnicef - will need a full 10-14 days of abx - steroids discontinued - Duonebs Q4H - participating with aggressive PT - working with CM on discharge planning Multifocal PNA - initially septic, now resolved - cxr showed multifocal pna - Vancomycin, zosyn, azithro d/c - bronch lavage cx- neg - Blood culture- NGTD - influenza- neg - legionella and strep urine antigen-neg - procal- wnl - completing omnicef course for total of 14 days HTN - well controlled at this time - amlodipine added on 11/08/2018 - vasotec added 11/09/2018 - HCTZ added 11/10/2018 - Nicardipine drip added 11/13/18 but was never needed - cont monitoring - PRN coverage for SBP > 180 or DBP >110 Physical deconditioning - continue PT/OT Hypokalemia - replaced on 11/17 - repeat bmp this morning CHERI, resolved - Creatinine 0.79 this morning - Continue monitoring Elevated BNP - 11/06/2018- Echo: EF 55-60%, no suggestion of LV dysfunction - I/O: net negative about 5 L - Pulm added Diamox hyperglycemia 2/2 aggressive IV steroids - A1C 4.4 - Steroids decreased - accuchecks well controlled morbid obesity - Could be component of Obesity Hypoventilation Syndrome Disposition: Stable, continue to work with PT to get back to baseline, pending home discharge plans vs placement. Will likely go home with the aide of daughter and other family. She would like if it is affordable. Addendum - Attending - Attending Attestation Date/Time: 11/18/18 1881 I personally evaluated the patient and discussed the management with Dr. Hubbard I agree with the History, Examination, Assessment and Plan documented above with any addition or exceptions noted below. 43 yo female admitted for sepsis HD #13 Patient doing well today. No acute changes. Reports no PT over the weekend. Has been about to stand on her own x 1 yesterday. Needs assistance to sit in bedside chair. No longer on NC. VS, images, labs reviewed. Agree with PE as documented. 1. Sepsis: Resolved. Cultures negative. 2. Multifocal pneumonia: On oral antibx. Continue to total of 14 days per pulm. Last day 11/19/18. Followup pulm outpatient. 3. BMI 63: Needs outpatient follow up with PCP to discuss options. 4. BERNICE: Needs sleep study. 5. Deconditioning: Continue PT. Not able to perform many ADLS by her self. Will possibly need assistance at home. Unfunded and unable to qualify for rehab. 6. HTN: Adjust meds for goal of < 130/80 7. Elevated BNP: Likely related to sepsis. ECHO WNL. Juliana
[2018-11-18 06:44] LABS: Anion Gap 10 mmol/L (10-20); BUN (Urea Nitrogen) 20 mg/dL (7.0-18.7); Calc. Creatinine Clearance 258 mL/min (70-130); Calcium 8.6 mg/dL (7.8-10.44); Carbon Dioxide 26 mmol/L (22-29); Chloride 106 mmol/L (98-107); Estimated GFR-MDRD Greater than 90; Glucose 110 mg/dL (70-105); Potassium 3.2 mmol/L (3.5-5.1); Sodium 139 mmol/L (136-145)
[2018-11-18] MEDS: Cefdinir 300 MG CAP PO SCH (08:47)
[2018-11-18] MEDS: AcetaZOLAMIDE 250 MG TAB PO SCH (08:48)
[2018-11-18] MEDS: Lisinopril 20 MG TAB PER TUBE SCH ×2 (08:48→20:45)
[2018-11-18] MEDS: Famotidine 20 MG TAB PO SCH ×2 (08:49→21:23)
[2018-11-18] MEDS: Potassium Chloride 20 MEQ TAB PO SCH (08:50)
[2018-11-18] MEDS: Enoxaparin Sodium 30 MG/0.3 ML SYRINGE SC SCH ×2 (08:51→21:23)
--- NOTE | 2018-11-18 10:23 | PRG ---
DATE OF SERVICE: 11/18/2018 SUBJECTIVE: Ms. Shetty is doing reasonably well and has no acute complaints. OBJECTIVE: VITAL SIGNS: Temperature is 97.9, pulse 86, blood pressure 120/80, O2 saturation is in the low 90s. HEENT: Unremarkable. NECK: No JVD. LUNGS: Clear anteriorly. CARDIAC: S1, S2. Regular. ABDOMEN: Soft. Nontender. EXTREMITIES: No edema. LABORATORY DATA: Sodium 139, potassium 3.2, chloride 106, CO2 of 26, BUN 20, creatinine 0.8, glucose 110. ASSESSMENT: 1. Status post pneumonia. 2. Status post acute respiratory failure requiring mechanical ventilation. 3. Fluid overload, which is improved. 4. Probable underlying obstructive sleep apnea. PLAN: 1. She is nearing the point where she can be discharged. She may need low-flow oxygen at home temporarily. It would be nice to get an outpatient sleep study. 2. Today should be last day of antibiotics. Job ID: [id number]
[2018-11-18] MEDS: Amlodipine 10 MG TAB PER TUBE SCH (12:03)
[2018-11-19 06:28] LABS: Anion Gap 11 mmol/L (10-20); BUN (Urea Nitrogen) 18 mg/dL (7.0-18.7); Calc. Creatinine Clearance 252 mL/min (70-130); Calcium 8.8 mg/dL (7.8-10.44); Carbon Dioxide 22 mmol/L (22-29); Chloride 107 mmol/L (98-107); Estimated GFR-MDRD Greater than 90; Glucose 86 mg/dL (70-105); Potassium 3.8 mmol/L (3.5-5.1); Sodium 136 mmol/L (136-145)
[2018-11-19] MEDS: Enoxaparin Sodium 30 MG/0.3 ML SYRINGE SC SCH ×2 (08:23→20:22)
[2018-11-19] MEDS: Potassium Chloride 20 MEQ TAB PO SCH (08:23)
[2018-11-19] MEDS: Famotidine 20 MG TAB PO SCH ×2 (08:24→20:21)
[2018-11-19] MEDS: Lisinopril 20 MG TAB PER TUBE SCH ×2 (08:24→20:21)
[2018-11-19] MEDS: AcetaZOLAMIDE 250 MG TAB PO SCH (08:28)
--- NOTE | 2018-11-19 09:25 | PRG ---
DATE OF SERVICE: 11/19/2018 SUBJECTIVE: She is feeling well, has no acute complaints. OBJECTIVE: VITAL SIGNS: Temperature 98.4, pulse 91, respirations 18, O2 saturation 93%, and blood pressure 119/71. HEENT: Unremarkable. NECK: No JVD. LUNGS: Clear. CARDIAC: S1, S2. Regular. ABDOMEN: Soft, nontender. EXTREMITIES: No edema. LABORATORY DATA: Sodium 136, potassium 3.8, chloride 107, CO2 of 22, BUN 18, creatinine 0.8, glucose 86. ASSESSMENT: 1. Resolving pneumonia. 2. Status post acute respiratory failure requiring mechanical ventilation. 3. Morbid obesity. RECOMMENDATIONS: I think it would be safe to go ahead and stop the Diamox. She may end up needing intermittent diuretic in the future. She will need a sleep study at some point as an outpatient. I think she is probably ready for discharge at any time. Job ID: [id number]
--- NOTE | 2018-11-19 09:45 | PDOC.FM ---
- Subjective Subjective: Ashia Shetty seen at bedside this morning. She did well overnight. There are no complaints this morning. She worked with PT yesterday and was able to get up out of bed and ambulate with assist with walker to the door and back to her bed. We are awaiting safe discharge plan for patient. She denies fever, chills, chest pain, dyspnea, n/v. - Objective MAR Reviewed: Yes Vital Signs & Weight: Vital Signs (12 hours) Temp Pulse Resp BP BP Pulse Ox 11/19/18 08:24 119/71 11/19/18 08:23 91 L 11/19/18 08:00 98.4 F 89 18 119/71 91 L 11/19/18 06:19 91 18 93 L 11/19/18 04:00 98.4 F 86 20 131/79 92 L 11/19/18 02:28 96 11/19/18 02:19 89 20 92 L 11/19/18 00:00 99.1 F 89 20 132/75 92 L 11/18/18 22:10 86 16 Weight Admit Weight 135.227 kg Weight 182.7 kg Most Recent Monitor Data Heart Rate from ECG 92 NIBP 138/97 NIBP BP-Mean 110 Respiration from ECG 19 SpO2 100 I&O: 11/18/18 11/19/18 11/20/18 06:59 06:59 06:59 Intake Total 130 240 Output Total 800 Balance -670 240 Result Diagrams: 11/15/18 05:20 11/20/18 05:44 Phys Exam - Physical Examination Constitutional: NAD morbidly obese HEENT: moist MMs, sclera anicteric Neck: no JVD, supple, full ROM Respiratory: no wheezing, no rales, no rhonchi, clear to auscultation bilateral Cardiovascular: RRR, no significant murmur Gastrointestinal: soft, non-tender, no distention Musculoskeletal: no edema, pulses present Neurological: non-focal, normal sensation, moves all 4 limbs Psychiatric: normal affect, A&O x 3 Skin: no rash Dx/Plan (1) CAP (community acquired pneumonia) Code(s): J18.9 - PNEUMONIA, UNSPECIFIED ORGANISM Status: Acute (2) Elevated brain natriuretic peptide (BNP) level Code(s): R79.89 - OTHER SPECIFIED ABNORMAL FINDINGS OF BLOOD CHEMISTRY Status : Acute (3) HTN (hypertension) Code(s): I10 - ESSENTIAL (PRIMARY) HYPERTENSION Status: Chronic (4) Morbid obesity Code(s): E66.01 - MORBID (SEVERE) OBESITY DUE TO EXCESS CALORIES Status: Chronic (5) BERNICE (obstructive sleep apnea) Code(s): G47.33 - OBSTRUCTIVE SLEEP APNEA (ADULT) (PEDIATRIC) Status: Chronic - Plan Plan: Acute hypoxic hypercapnic resp failure 2/2 PNA vs fluid overload - Improving, extubated 11/14/18, satting well on RA - cont ABX: omnicef - will need a full 10-14 days of abx - steroids discontinued - Duonebs Q4H - participating with aggressive PT - working with CM on discharge planning - pulm has cleared patient for discharge home Multifocal PNA - initially septic, now resolved - cxr showed multifocal pna - Vancomycin, zosyn, azithro d/c - bronch lavage cx- neg - Blood culture- NGTD - influenza- neg - legionella and strep urine antigen-neg - procal- wnl - completed omnicef course for total of 14 days HTN - well controlled at this time - amlodipine added on 11/08/2018 - vasotec added 11/09/2018 - HCTZ added 11/10/2018 - Nicardipine drip added 11/13/18 but was never needed - cont monitoring - PRN coverage for SBP > 180 or DBP >110 Physical deconditioning - continue PT/OT Hypokalemia - replaced on 11/17 - repeat bmp this morning CHERI, resolved - Continue monitoring Elevated BNP - 11/06/2018- Echo: EF 55-60%, no suggestion of LV dysfunction - I/O: net negative about 5 L hyperglycemia 2/2 aggressive IV steroids - A1C 4.4 - Steroids decreased - accuchecks well controlled morbid obesity - Could be component of Obesity Hypoventilation Syndrome Disposition: Stable, continue to work with PT to get back to baseline, pending home discharge plans vs placement. Will likely go home with the aide of daughter and other family. She would like if it is affordable. Addendum - Attending - Attending Attestation Date/Time: 11/19/18 1009 I personally evaluated the patient and discussed the management with Dr. Hubbard I agree with the History, Examination, Assessment and Plan documented above with any addition or exceptions noted below. 43 yo female admitted for sepsis HD #14 Remains well. Reports slept well overnight. No episodes of respiratory problems. No pain. Improved ambulation. VS, images, labs reviewed. Agree with PE as documented. 1. Sepsis: Resolved. Cultures negative. Procal remained negative. 2. Multifocal pneumonia: Possible viral etiology over bacterial based on trends. Patient was treated with 14 days of antibx. Follow up with pulm. 3. BMI 63: Needs outpatient follow up with PCP to discuss options. 4. BERNICE: Needs sleep study. 5. Deconditioning: Improving in strength. Unable to afford inpat rehab, PT, or home PT 6. HTN: Adjust meds for goal of < 130/80 7. Elevated BNP: Monitor closely outpatient. Risk for HF. ECHO at this time WNL. Dipso: Patient able to be discharged once able to care for herself with minimal risk. Family to assist at home. They will also meet with PT team to learn assisted lifts and daily exercises needed to help patient. Juliana
[2018-11-19] MEDS: Amlodipine 10 MG TAB PER TUBE SCH (12:59)
--- NOTE | 2018-11-19 13:46 | DIS ---
DATE OF ADMISSION: 11/05/2018 DATE OF DISCHARGE: 11/20/2018 RESIDENT: Rosales Hubbard MD ADMITTING ATTENDING: Alex Dixon MD DISCHARGE ATTENDING: Nona Bailey MD CONSULTS: 1. Pulmonology, Dr. Buck, on 11/05/2018. 2. Case Management on 11/16/2018 to 11/19/2018. 3. PT and OT. 4. Physical Therapy. PROCEDURES: 1. Chest x-ray on 11/05/2018, impression, extensive airspace opacity concerning for multifocal pneumonia. Edema is felt less likely. Marked cardiomegaly. 2. CTA chest 11/05/2018, impression, markedly suboptimal evaluation due to body habitus, beam attenuation, core timing of contrast bolus, and motion degradation. Bilateral ground-glass opacities with perihilar and lower lobe consolidation with associated air bronchograms. No obvious pulmonary arterial embolism involving the central pulmonary arteries. 3. Operative report from 11/05/2018. Procedure, bronchoscopy with endotracheal intubation by Dr. Buck. 4. Chest x-ray on 11/06/2018, impression, worsening bibasilar pleural and parenchymal opacity. New endotracheal tube and nasogastric tube. 5. Echocardiogram on 11/06/2018, summary, ejection fraction visually estimated at 55% to 60%. Mildly enlarged right atrial size. Moderately enlarged right ventricular cavity. Left ventricular size mildly increased. Mild tricuspid regurgitation. Dilation of IVC. 6. Chest x-ray on 11/07/2018, impression, stable chest. 7. Chest x-ray on 11/08/2018, impression, comparison with 11/07/2018 evaluation is markedly limited due to patient's body habitus and significant interval change with respect to prior examination is not definitely apparent. 8. Chest x-ray on 11/09/2018, impression, bilateral pulmonary airspace disease representing either pulmonary edema or pneumonia. This has improved on the right. Cardiomegaly. 9. Chest x-ray on 11/10/2018, impression, no significant interval change. 10. Chest x-ray on 11/11/2018, impression, poorly penetrated exam given this limitations on similar exam of the chest. 11. Chest x-ray on 11/12/2018, impression, endotracheal tube tip at level of clavicles. Enteric tube tip below the diaphragm on the lateral field of view, similar appearance during effusions and moderate edema. Possible pneumonia in the lower lobes. 12. Chest x-ray on 11/13/2018, impression, significant interval change with respect to prior exam is not apparent. 13. Chest x-ray on 11/14/2018, impression, stable exam. 14. Chest x-ray on 11/15/2018, impression, interval removal of endotracheal and nasogastric tubes, otherwise no significant change. 15. Blood culture x2 from 11/05/2018, impression, no growth in 5 days. 16. Nasal swab from 11/05/2018, impression, influenza type A and B negative. 17. Bronchoalveolar lavage culture from 11/05/2018, final report 75 to 100,000 colony-forming units per mL, normal respiratory linda present. PRIMARY DIAGNOSES: 1. Acute respiratory failure with hypoxia and hypercapnia. 2. Sepsis secondary to community-acquired pneumonia. SECONDARY DIAGNOSES: 1. Hypertension. 2. Acute kidney injury. 3. Morbid obesity. 4. Obstructive sleep apnea. 5. Elevated BNP. DISCHARGE MEDICATIONS: Resume home medications includin. Calcium carbonate 500 mg p.o. daily. 2. Ginseng 100 mg p.o. b.i.d. 3. Fish oil 300 mg p.o. daily. 4. Glucosamine 1500 complex capsule, one cap p.o. daily. 5. Lisinopril hydrochlorothiazide 20/12.5, one tablet p.o. daily. 6. Furosemide 20 mg p.o. daily. 7. Tramadol 1 tab p.o. q.4 hours p.r.n. 8. Albuterol sulfate. 9. Amlodipine 10 mg p.o. daily. HISTORY OF PRESENT ILLNESS/HOSPITAL COURSE: Ashia Shetty is a 43-year-old female with a past medical history of hypertension, presumptive obstructive sleep apnea and morbid obesity, who presented to the ED with complaint of cough and shortness of breath. Symptoms started on 10/24/2018 and she was treated with a course of Amoxil with no relief. She stated that during this time, she had multiple episodes of hemoptysis. She states that nothing made her symptoms better or worse. Reports a central chest pain with some radiation to her back. Also reported fevers as high as 104 at home with associated nausea, vomiting, diarrhea that has been going on for 4 days. In the ED, she received fentanyl 50 mcg, two boluses of normal saline, Rocephin 2 g, azithromycin 500 mg, Toradol 30 mg, and DuoNeb x1. Initial labs on admission, white blood cell count 13.7, hemoglobin 11.3, hematocrit 37.9, and platelets 232. Sodium 132, potassium 3.4, chloride 96, bicarb 29, BUN 15, creatinine 1.37, and blood sugar of 118. Physical exam on admission was significant for diffuse crackles, greater on the right lung soto. Initial vitals were blood pressure 105/61, heart rate 94, respiratory rate 23, temperature 99.1, and pulse ox 95% on non-rebreather. CT scan of the chest and chest x-ray were as above. The patient was admitted for sepsis secondary to community-acquired pneumonia with acute hypoxic hypercapnic respiratory failure. She was admitted to the ICU. She was initially requiring 4 L nasal cannula. The patient slowly declined from respiratory standpoint and was requiring BiPAP. She became somnolent and difficult to arouse in the IMCU, and decision was made to intubate and transfer her to the ICU. She was placed on mechanical ventilation and remained on mechanical ventilation from 11/05/2018 to 11/14/2018. Empiric antibiotics were given to the patient on vancomycin and Zosyn, as well as azithromycin. Vancomycin and Zosyn were continued from to 11/10. Azithromycin was continued from 11/05 to 11/15. After extubation, Pulmonology de-escalated antibiotics to Omnicef, which was started on 11/15 and continued until 11/18. She had a total of 14 days on antibiotics. The patient improved dramatically from a respiratory standpoint, status post extubation. Physical Therapy and Occupational Therapy were involved thereafter. Dr. Buck cleared the patient for discharge on 11/19/2018. The patient had discharge plans to go stay with her aunt. She is not insured and has no funding, and was unable to get set up with any type of rehab or snf facility placement for continued rehabilitation. I spoke with the patient's aunt, who ensured me that she would be there to assist patient with getting out of bed ambulating, going to and from the restroom. I encouraged the patient's aunt to encourage patient to continue moving around and regaining her strength. The patient also during her admission received steroids and DuoNeb q.4 hours. In regard to patient's blood pressure, she came in hypertensive. Amlodipine was added on 11/08, Vasotec added on 11/09, hydrochlorothiazide was added on 11/10, and blood pressures were well controlled thereafter. She initially had an acute kidney injury that resolved with fluids. Patient was initially discharged on 11/19/18 but we were unable to coordinate patient getting home safely. Discharge was held and then continued morning of 11/20/18. Attempts made at having family, who is picking patient up, meet with PT to learn techniques and exercises for patient/family to do at home to improve strength and physical de-conditioning. Dr. Buck requested that if patient is able to get Medicaid, that she have testing done for BERNICE as an outpatient. DISPOSITION: Stable. The patient should do well if she goes home and continues her antihypertensive therapy and regains her strength with continued movement and physical therapy exercises. DISCHARGE INSTRUCTIONS: 1. Location: Home/aunt's house. 2. Diet: Heart healthy and diabetic diet. 3. Activity: As tolerated. 4. Followup: Follow up with primary care provider within 1 week. Job ID: [id number] [email or web address]
--- NOTE | 2018-11-20 06:35 | PDOC.FM ---
- Subjective Subjective: Patient was initially discharged yesterday but family was unable to come pick her up and meet with PT team to learn techniques and exercises for patient. She will be discharged this morning. No acute events overnight, no complaints this morning. - Objective MAR Reviewed: Yes Vital Signs & Weight: Vital Signs (12 hours) Temp Pulse Resp BP BP Pulse Ox 11/20/18 02:24 16 11/19/18 22:05 90 16 11/19/18 20:21 115/71 11/19/18 20:00 98.6 F 90 18 115/71 92 L Weight Admit Weight 135.227 kg Weight 182.7 kg Most Recent Monitor Data Heart Rate from ECG 92 NIBP 138/97 NIBP BP-Mean 110 Respiration from ECG 19 SpO2 100 I&O: 11/18/18 11/19/18 11/20/18 06:59 06:59 06:59 Intake Total 130 240 750 Output Total 800 Balance -670 240 750 Result Diagrams: 11/15/18 05:20 11/20/18 05:44 Dx/Plan (1) CAP (community acquired pneumonia) Code(s): J18.9 - PNEUMONIA, UNSPECIFIED ORGANISM Status: Acute (2) Elevated brain natriuretic peptide (BNP) level Code(s): R79.89 - OTHER SPECIFIED ABNORMAL FINDINGS OF BLOOD CHEMISTRY Status : Acute (3) HTN (hypertension) Code(s): I10 - ESSENTIAL (PRIMARY) HYPERTENSION Status: Chronic (4) Morbid obesity Code(s): E66.01 - MORBID (SEVERE) OBESITY DUE TO EXCESS CALORIES Status: Chronic (5) BERNICE (obstructive sleep apnea) Code(s): G47.33 - OBSTRUCTIVE SLEEP APNEA (ADULT) (PEDIATRIC) Status: Chronic - Plan Plan: Acute hypoxic hypercapnic resp failure 2/2 PNA vs fluid overload - Improving, extubated 11/14/18, satting well on RA - cont ABX: omnicef - will need a full 10-14 days of abx - steroids discontinued - Duonebs Q4H - participating with aggressive PT - pulm has cleared patient for discharge home - plan to be discharged home today, patient will be staying with aunt who with help her with ADLs and regaining strength Multifocal PNA - initially septic, now resolved - cxr showed multifocal pna - Vancomycin, zosyn, azithro d/c - bronch lavage cx- neg - Blood culture- NGTD - influenza- neg - legionella and strep urine antigen-neg - procal- wnl - completed omnicef course for total of 14 days HTN - well controlled at this time - amlodipine added on 11/08/2018 - vasotec added 11/09/2018 - HCTZ added 11/10/2018 - Nicardipine drip added 11/13/18 but was never needed - cont monitoring - PRN coverage for SBP > 180 or DBP >110 Physical deconditioning - continue PT/OT Hypokalemia - replaced on 11/17 - repeat bmp this morning CHERI, resolved - Continue monitoring Elevated BNP - 11/06/2018- Echo: EF 55-60%, no suggestion of LV dysfunction - I/O: net negative about 5 L hyperglycemia 2/2 aggressive IV steroids - A1C 4.4 - Steroids decreased - accuchecks well controlled morbid obesity - Could be component of Obesity Hypoventilation Syndrome Disposition: Stable, continue to work with PT to get back to baseline, will discharge home today. Addendum - Attending - Attending Attestation Date/Time: 11/20/18 1037 I personally evaluated the patient and discussed the management with Dr. Hubbard I agree with the History, Examination, Assessment and Plan documented above with any addition or exceptions noted below. 43 yo female admitted for sepsis HD #15 Ready for discharge but fearful she will not do well at home. Patient concerned because temp was 99.0 today. Denies symptoms but patient visually anxious that something might be happening. Reassurance provided. No other evidence of temp instability. VS, images, labs reviewed. Agree with PE as documented. 1. Sepsis: Resolved. Cultures negative. Procal remained negative. 2. Multifocal pneumonia: Possible viral etiology over bacterial based on trends/ labs. Patient was treated with 14 days of antibx. Follow up with pulm. Will likely need repeat CT scan in out patient setting to follow up lung lesions noted on CXR. 3. BMI 63: Needs outpatient follow up with PCP to discuss options. Limited financial resources. Currently awaiting Medicaid approval. 4. BERNICE: Needs sleep study. 5. Deconditioning: Improving in strength. Unable to afford inpat rehab, PT, or home PT. Patient's family to help at home. Has safe plan for home. 6. HTN: Adjust meds for goal of < 130/80 7. Elevated BNP: Monitor closely outpatient. Risk for HF. ECHO at this time WNL. Dipso: Patient and family to meet with PT today. Ok to d/c to home afterwards. Follow up with [facility] next week. Needs pulm follow up. Awaiting medicaid coverage. Juliana
[2018-11-20 07:05] LABS: Anion Gap 10 mmol/L (10-20); BUN (Urea Nitrogen) 16 mg/dL (7.0-18.7); Calc. Creatinine Clearance 249 mL/min (70-130); Calcium 8.9 mg/dL (7.8-10.44); Carbon Dioxide 27 mmol/L (22-29); Chloride 106 mmol/L (98-107); Estimated GFR-MDRD 90; Glucose 99 mg/dL (70-105); Potassium 3.7 mmol/L (3.5-5.1); Sodium 139 mmol/L (136-145)
[2018-11-20 07:42] VITALS: BP 125/79; TEMP 99
[2018-11-20] MEDS: Potassium Chloride 20 MEQ TAB PO SCH (08:23)
[2018-11-20] MEDS: Enoxaparin Sodium 30 MG/0.3 ML SYRINGE SC SCH (08:24)
[2018-11-20] MEDS: Lisinopril 20 MG TAB PER TUBE SCH (08:24)
[2018-11-20] MEDS: Famotidine 20 MG TAB PO SCH (08:24)
[2018-11-20] MEDS ORDERED: Chloraseptic Spray 180 ml Bottle PO PRN (10:14)
[2018-11-20] MEDS: Amlodipine 10 MG TAB PER TUBE SCH (11:24)
== END 2018-11-20 11:39 | disposition home or self-care (01) | DRG 870 ==
LOC: ERS 14:08 → IMCU/EMU 15:50 → CCU 17:30 → T4-A 11-15 13:17
PROVIDERS: ADMIT Family Medicine; ATTEND Family Medicine
PROC: 0BJ08ZZ Inspection of Tracheobronchial Tree, Via Natural or Artificial Opening Endoscopic (ICD-10-PCS; principal; 2018-11-05)
PROC: 5A1955Z Respiratory Ventilation, Greater than 96 Consecutive Hours (ICD-10-PCS; 2018-11-05)
PROC: 0BH18EZ Insertion of Endotracheal Airway into Trachea, Via Natural or Artificial Opening Endoscopic (ICD-10-PCS; 2018-11-05)
DX: A41.9 Sepsis, unspecified organism (principal); J18.9 Pneumonia, unspecified organism; J96.01 Acute respiratory failure with hypoxia; J96.02 Acute respiratory failure with hypercapnia; Z68.44 Body mass index [BMI] 60.0-69.9, adult; E87.2 Acidosis; N17.9 Acute kidney failure, unspecified; E87.1 Hypo-osmolality and hyponatremia; I24.8 Other forms of acute ischemic heart disease; I10 Essential (primary) hypertension; G47.33 Obstructive sleep apnea (adult) (pediatric); E66.01 Morbid (severe) obesity due to excess calories; E87.6 Hypokalemia; E78.5 Hyperlipidemia, unspecified; R73.9 Hyperglycemia, unspecified; E87.70 Fluid overload, unspecified
CPT/HCPCS: 36415; 36416; 71045; 71275; 80048; 80053; 80202; 82553; 82805; 83036; 83605; 83735; 83880; 84145; 84484; 85025; 85379; 85520; 87040; 87070; 87389; 87804; 87899; 90471; 90732; 93005; 93306; 94002; 94003; 94640; 94660; 94760; 96361; 96365; 96375; 99292; A4218; G0009; J0360; J0456; J0696; J1120; J1650; J1885; J1940; J2060; J2270; J2543; J2704; J2920; J3010; J3370; J3480; J3490; J7050; J7070; J7620; Q0163; Q9966; S0028

== ENCOUNTER 2019-04-29 11:09 | Outpatient (CLI) | payer BC ==
[2019-04-29 13:04] LABS: #Basophils 0.1 thou/uL (0.0-0.2); #Eosinphils 0.3 thou/uL (0.0-0.7); #Lymphocytes 3.1 thou/uL (1.20-3.40); #Monocytes 0.6 thou/uL (0.11-0.59); #Neutrophils 7.1 thou/uL (1.40-6.50); %Basophils 0.5 % (0.0-1.0); %Lymphocytes 27.5 % (21.0-51.0); %Monocytes 5.5 % (0.0-10.0); %Neutrophils 63.5 % (42.0-75.0); ALT (SGPT) 12 U/L (8-55); AST (SGOT) 15 U/L (5-34); Albumin 3.6 g/dL (3.5-5.0); Alkaline Phosphatase 64 U/L (40-150); Anion Gap 8 mmol/L (10-20); BUN (Urea Nitrogen) 9 mg/dL (7.0-18.7); Bilirubin, Total 0.4 mg/dL (0.2-1.2); Calc. Creatinine Clearance 0 mL/min (70-130); Carbon Dioxide 29 mmol/L (22-29); Chloride 103 mmol/L (98-107); Estimated GFR-MDRD Greater than 90; Globulin 4.3 g/dL (2.4-3.5); Glucose 82 mg/dL (70-105); Mean Corpuscular HGB CONC 30.1 g/dL (32.0-36.0); Mean Corpuscular Hemoglobin 21.3 pg (27.0-31.0); Mean Corpuscular Volume 70.7 fL (78.0-98.0); Mean Platelet Volume 10.1 fL (7.4-10.4); Platelet Count 270 thou/uL (130-400); Potassium 3.6 mmol/L (3.5-5.1); Protein, Total 7.9 g/dL (6.0-8.3); RBC Distribution Width 17.9 % (11.5-14.5); Sodium 136 mmol/L (136-145); White Blood Cell (WBC) Count 11.2 thou/uL (4.8-10.8)
[2019-04-29 13:07] LABS: Hypochromia SLIGHT = 6-15 cells (100X) (0-5/hpf); Microcytosis MODERATE=15-30 cells (100X) (0-5/hpf); Ovalocytes SLIGHT = 2-5 cells (100X) (0-1/hpf); Platelet Morphology Comment Appears Adequate; Polychromasia SLIGHT = 2-3 cells (100X) (0-2/hpf)
[2019-04-29 13:09] LABS: BHCG - Serum Negative (NEGATIVE); Pregs Control Background? CLEAR/WHITE (CLR/WHITE); Pregs Control Bar Appear? YES (CONTROL BAR)
== END 2019-04-29 11:10 | disposition home or self-care (01) ==
LOC: LABBT 11:09
PROVIDERS: ATTEND Surgery
DX: Z01.818 Encounter for other preprocedural examination (principal); R22.0 Localized swelling, mass and lump, head
CPT/HCPCS: 80053; 84703; 85025; 93005; 93010

== ENCOUNTER 2019-05-05 08:12 | Day surgery (SDC) | payer BC ==
[2019-04-29 11:22] VITALS: BMI 60.7
[2019-05-05] MEDS ORDERED: Lidocaine 2% PF 5 ML VIAL ONE (09:34)
[2019-05-05] MEDS ORDERED: Bupivacaine HCl 0.5%/Epinephrine 1:200,000/PF 30 ml Vial ONE (09:34)
[2019-05-05] MEDS ORDERED: Ketamine 50 MG/ML (10ML VIAL) ONE (09:42)
[2019-05-05] MEDS ORDERED: Midazolam HCl 2 mg/2 ml Vial ONE (09:43)
[2019-05-05] MEDS ORDERED: Esmolol 100 MG/10 ML VIAL ONE ×2 (10:26→14:33)
[2019-05-05] MEDS ORDERED: Bacitracin Zinc Ointment 30 gm TUBE ONE (10:38)
--- NOTE | 2019-05-05 11:29 | OP ---
DATE OF PROCEDURE: 05/05/2019 PREOPERATIVE DIAGNOSIS: Scalp mass, posterior scalp. PROCEDURE PERFORMED: Excisional biopsy. INDICATIONS: This is a 44-year-old female, who had a large raised skin mass, posterior scalp that cause discomfort, desired excision. FINDINGS: A 10 x 3 cm posterior scalp mass. DESCRIPTION OF PROCEDURE: After an informed consent was obtained, the patient was taken to the operating room. Due to her habitus and previous hypoxic incidence, she was done under TIVA. She was placed in the supine position with her head turned to the right side and taped with oxygen on. She was given total IV anesthesia, local anesthesia. Her scalp was prepped and draped in usual fashion. Local anesthesia infiltrated subcutaneously and deep with 0.5% Marcaine. Then, an elliptical incision was performed to excise the mass. Bleeders were cauterized. Then, the skin was closed with interrupted vertical mattress sutures of 2-0 Prolene suture. Hemostasis was assured. Bacitracin applied. The patient tolerated the procedure well, transferred to Recovery in fair condition. Job ID: [id number]
[2019-05-05 13:40] LABS: Actual Bicarbonate (HCO3a) 31.5 mEq/L (22-28); Base Excess (BEa) 4.1 mEq/L (-2.0 to +3.0); Calcium, Ionized 1.16 mmol/L (1.12-1.30); Carboxyhemoglobin (COHb) 0.9 gm% (0.0-3.0); Hemoglobin (Hb) 9.6 g/dL (12.0-16.0); O2 Tension (PaO2) 106.3 mmHg (80.0-100.0); Potassium - ABG Lab 4.31 mmol/L (3.70-5.30); pH, Arterial 7.31 (7.35-7.45)
[2019-05-05 13:42] LABS: CO2 Tension 64.5 mmHg (35.0-45.0); Puncture Site A
[2019-05-05 13:43] LABS: ALV-art Gradient 26.975 (0-20)
[2019-05-05] MEDS ORDERED: Glycopyrrolate 0.2 MG/ML 5 ML SYRINGE ONE (14:33)
[2019-05-05] MEDS ORDERED: Dexamethasone 20 MG/5 ML VIAL ONE (14:33)
[2019-05-05] MEDS ORDERED: diphenhydrAMINE 50 MG/ML VIAL ONE (14:33)
[2019-05-05] MEDS ORDERED: PROPOFOL 200 MG/20 ML VIAL ONE (14:33)
== END 2019-05-05 18:20 | disposition home or self-care (01) ==
LOC: SDC 08:12
PROVIDERS: ATTEND Surgery
PROC: 0HB0XZZ Excision of Scalp Skin, External Approach (ICD-10-PCS; principal; 2019-05-05)
DX: L72.0 Epidermal cyst (principal); L73.9 Follicular disorder, unspecified; I10 Essential (primary) hypertension; G47.33 Obstructive sleep apnea (adult) (pediatric); G43.909 Migraine, unspecified, not intractable, without status migrainosus; M06.9 Rheumatoid arthritis, unspecified; E66.01 Morbid (severe) obesity due to excess calories; Z68.44 Body mass index [BMI] 60.0-69.9, adult; Z79.899 Other long term (current) drug therapy; Z88.5 Allergy status to narcotic agent
CPT/HCPCS: 82805; 88304; 94660; J0670; J0690; J1100; J1200; J2001; J2250; J2704

== ENCOUNTER 2019-06-28 14:25 | Emergency (ER) | payer BC, SELFPAY ==
[2019-06-28] MEDS ORDERED: Ketorolac Tromethamine 30 MG/ML VIAL ONE ×2 (15:40)
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
--- NOTE | 2019-06-28 15:59 | RAD ---
XR Hip Rt 2-3 View History: Injury Comparison: None. Findings: Exam is limited due to poor penetration. Acetabular osteophyte formation. No displaced frac ture is appreciated. Impression: Severely limited exam due to poor penetration. No displaced fracture appreciated.
== END 2019-06-28 16:29 | disposition home or self-care (01) ==
LOC: ERS 14:25
DX: S40.011A Contusion of right shoulder, initial encounter (principal); M25.551 Pain in right hip; E66.9 Obesity, unspecified; I10 Essential (primary) hypertension; V49.9XXA Car occupant (driver) (passenger) injured in unspecified traffic accident, initial encounter
CPT/HCPCS: J1885

== ENCOUNTER 2019-11-29 20:26 | Emergency (ER) | payer SELFPAY ==
[2019-11-29] MEDS ORDERED: Ketorolac Tromethamine 30 MG/ML VIAL ONE (21:04)
--- NOTE | 2019-11-29 22:29 | ULT ---
Exam: Right lower extremity venous ultrasound with Doppler HISTORY: Pain COMPARISON: None TECHNIQUE: Grayscale, color flow, Doppler imaging and spectral waveform analysis of the right lower e xtremity venous system FINDINGS: There is compressibility, presence of flow and augmentation in the common femoral vein, femoral vein and popliteal vein. Flow and augmentation in the posterior tibial vein. Flow in the anterior tibial vein, greater saphenous vein and profunda femoral vein IMPRESSION: No evidence of thrombus in the visualized right lower extremity deep venous system
== END 2019-11-29 23:49 | disposition home or self-care (01) ==
LOC: ERS 20:26
DX: L03.115 Cellulitis of right lower limb (principal); I10 Essential (primary) hypertension; E66.9 Obesity, unspecified; Z79.899 Other long term (current) drug therapy
CPT/HCPCS: 96372; J1885

== ENCOUNTER 2019-12-09 14:44 | Outpatient (CLI) | payer BC ==
--- NOTE | 2019-12-09 15:16 | RAD ---
EXAM: Chest PA and lateral: HISTORY: Dyspnea COMPARISON: 12/16/2017 FINDINGS: Heart: Mild enlarged cardiac silhouette. Aorta: Unremarkable Pulmonary vessels: Normal Costophrenic angles: Costophrenic angles are clear. Lungs: No consolidation or masses. Pneumothorax: No pneumothorax Osseous structures: No osseous abnormalities IMPRESSION: No acute cardiopulmonary process.
== END 2019-12-09 14:45 | disposition home or self-care (01) ==
LOC: RAD 14:44
PROVIDERS: ATTEND Internal Medicine Pulmonary Disease
DX: R06.00 Dyspnea, unspecified (principal)
CPT/HCPCS: 71046

== ENCOUNTER 2020-06-18 21:58 | Observation (INO) | payer OTHER ==
[2020-06-18 23:28] LABS: Bacteria/HPF None Seen HPF (None Seen); Bilirubin Negative (Negative); Blood, Urine 1+ (Negative); Clarity Clear (Clear); Glucose, Urine (Dipstick) Normal (Negative); Ketone, Urine Negative (Negative); Leukocyte 250 Leu/uL (Negative); Mucous/LPF Rare LPF (<2+); Nitrite Negative (Negative); Protein, Urine (Dipstick) 30 mg/dL (Neg-Trace); RBC/HPF 21-50 HPF (0-3); Specific Gravity, Urine 1.019 (1.002-1.036); Squamous Epithelial 0-3 HPF (0-3); Urobilinogen Normal mg/dL (Less than 2)
[2020-06-19] MEDS ORDERED: cefTRIAXone\\ROCEPHIN 1 GM VIAL ONE (00:05)
[2020-06-19 00:54] LABS: #Basophils 0.1 thou/uL (0.0-0.2); #Eosinphils 0.8 thou/uL (0.0-0.7); #Lymphocytes 4.5 thou/uL (1.20-3.40); #Neutrophils 7.1 thou/uL (1.40-6.50); %Basophils 0.7 % (0.0-1.0); %Eosinophils 5.9 % (0.0-10.0); %Lymphocytes 33.5 % (21.0-51.0); %Monocytes 7.4 % (0.0-10.0); %Neutrophils 52.5 % (42.0-75.0); Hemoglobin 11.6 g/dL (12.0-16.0); Mean Corpuscular Hemoglobin 24.8 pg (27.0-31.0); Mean Platelet Volume 9.1 fL (7.4-10.4); Platelet Count 290 thou/uL (130-400); RBC Distribution Width 17.5 % (11.5-14.5); Red Blood Cell (RBC) Count 4.69 mill/uL (4.20-5.40); White Blood Cell (WBC) Count 13.4 thou/uL (4.8-10.8)
--- NOTE | 2020-06-19 00:58 | PDOC.FPRHP ---
- History of Present Illness Chief Complaint: hematuria History of Present Illness: 45 yo F who is bed bound due to severe neuropathy in LEs bilaterally following 6 month hospitalization for COVID pneumonia presented via EMS complaining of gross hematuria in her healy catheter. Patient explains she felt her catheter dislodge some while adjusting in bed and shortly afterwards noticed bright red blood in the catheter. She has felt some discomfort at the site of her catheter placement the past 1-2 days and describes it as a dull aching pain. She denies and fever, chills, CP, SOB, nausea, vomiting, or diarrhea. She has been home for several weeks following extended hospitalization and rehab stay for COVID pneomonia. Her daughter lives with her and his her primary grounds caretaker. Patient expresses that she feels unsafe at home because her daughter is not a professional manager of tax and though she does her best she is not well equipped to support the patient in all her ADLs. ED Course: Patient's healy catheter was exchanged in ED and she received 1g of rocephin. - Allergies/Adverse Reactions Allergies Allergy/AdvReac Type Severity Reaction Status Date / Time codeine phosphate Allergy Hives Verified 10/23/19 11:59 [From Tylenol-Codeine #3] - Home Medications Medication Instructions Recorded Confirmed Type Calcium Carbonate [Calcium] 500 mg PO DAILY 11/04/13 11/04/13 History Furosemide [Lasix] 20 mg PO DAILY 11/04/13 11/04/13 History Ginseng 100 mg PO BID 11/04/13 11/04/13 History [place]-3 Fatty Acids [Fish Oil] 300 mg PO DAILY 11/04/13 11/04/13 History Lisinopril/Hydrochlorothiazide 1 tablet PO DAILY #30 tablet 11/19/18 Rx [Lisinopril-Hctz 20-12.5 mg Tab] Losartan Potassium [Cozaar] 25 mg PO HS 04/29/19 04/29/19 History Gabapentin 300 mg PO TID 06/19/20 06/19/20 History Metoprolol Tartrate 25 mg PO BID 06/19/20 06/19/20 History Pantoprazole [Protonix] 40 mg PO DAILY 06/19/20 06/19/20 History Sertraline HCl 50 mg PO HS 06/19/20 06/19/20 History - History PMHx: GERD, neuropathy, depression, HTN PSHx: tubal ligation, keloid removal on face FHx: Aunt - diabetes, Uncle - esophageal cancer Social: Denies tobacco, alcohol, or drug use. Patient is bed bound and lives with daughter who is her primary manager of tax. - Review of Systems General: denies: fever/chills ENT: denies: nasal congestion Respiratory: denies: cough, congestion, shortness of breath Cardiovascular: denies: chest pain, edema Gastrointestinal: denies: nausea, vomiting, diarrhea, abdominal pain Genitourinary: reports: other (hematuria) Skin: denies: rashes Musculoskeletal: reports: pain Neurological: reports: numbness, weakness - Vital signs BP: 180/92 HR: 78 RR: 18 Tmax: 97.5 Pox: 99% on RA Wt: 136kg - Physical Exam Constitutional: NAD, awake, alert and oriented HEENT: normocephalic and atraumatic, EOMI, no scleral icterus, grossly normal vision, grossly normal hearing Neck: FROM Heart: RRR, no murmurs/rubs/gallops, no edema Lungs: CTAB, no respiratory distress Abdomen: soft, non-tender Musculoskeletal: normal structure -Musculoskeletal: 3/5 strength in LE bilaterally -Neurological: decreased sensation to touch in LE bilaterally, worse distally Skin: no rash/lesions Psychiatric: normal mood and affect, good judgment and insight, intact recent and remote memory FMR H&P: Results - Labs Result Diagrams: 06/19/20 00:37 06/19/20 00:37 Lab results: WBC 13.4 thou/uL (4.8-10.8) H 06/19/20 00:37 Hgb 11.6 g/dL (12.0-16.0) L 06/19/20 00:37 Hct 37.5 % (36.0-47.0) 06/19/20 00:37 MCV 80.0 fL (78.0-98.0) 06/19/20 00:37 Plt Count 290 thou/uL (130-400) 06/19/20 00:37 Neutrophils % 52.5 % (42.0-75.0) 06/19/20 00:37 Urine Ketones Negative mg/dL (Negative) 06/18/20 22:53 Urine Blood 1+ (Negative) A 06/18/20 22:53 Urine Nitrite Negative (Negative) 06/18/20 22:53 Ur Leukocyte Esterase 250 [place]/uL (Negative) A 06/18/20 22:53 Urine RBC 21-50 HPF (0-3) A 06/18/20 22:53 Urine WBC 11-20 HPF (0-3) A 06/18/20 22:53 Ur Squamous Epith Cells 0-3 HPF (0-3) 06/18/20 22:53 Urine Bacteria None Seen HPF (None Seen) 06/18/20 22:53 FMR H&P: A/P - Plan 45 yo F that is bedbound complaining of gross hematuria following dislodgment of healy catheter UTI associated with healy catheter -Dysuria for 1-2 days and gross hematuria following catheter dislodgment this evening -UA: blood, LE, WBC -WBC 13.4 -afebrile, all other vitals wnl -Healy catheter exchanged in ED -Rocephin CHERI -Cr 1.48, 0.8 at baseline -500mL bolus LR -Recheck in AM Bedbound, dependence of ADLs -Consult CM concerning possible HH due to patent's concern that daughter is unable to safely care for patient given the extent of her daily care requirements. Sacral ulcer -Aware, clean and dry on admission -Currently taking clindamycin, will continue -Wound care consulted Bilateral LE neuropathy -Present since discharge following extended hospitalization. Has left patient unable to bear weight and bed bound. 3/5 strength in LE b/l -Continue home meds HTN -Continue home meds -labetalol prn GERD -Continue home meds Depression -Continue home meds DVTPPx: lovenox Diet: Regular Code: FULL PCP: Marie Dispo: eLOS <48 hours pending improvement of Cr and discussion with CM about home health FMR H&P: Upper Level - Plan Date/Time: 06/19/20 0057 Domenic Gutierrez DO, have evaluated this patient and agree with findings/plan as outlined by international marketing specialist resident. Pertinent changes/additions are listed here. 45 yo F w pmhx sig for morbid obesity, bed bound since long hospital stay with covid pna and resultant b/l LE weakness/neuropathy she is cared for at home by her daughter, chronic healy 2 days ago producing pain and hematuria today. she she report some pain in her lower abdomen and back associated with known sacral ulcer. in ED her ua was positive and cr was elevated, labs and imaging otherwise wnl. will continue rocephin for uti, gentle fluids for CHERI. will consult wound care for sacral decub. healy was exchanged. consult cm for dispo planning to include home health. ELOS<48hrs. Addendum - Attending - Attending Attestation Date/Time: 06/19/20 6983 I personally evaluated the patient and discussed the management with Dr. Starkey I agree with the History, Examination, Assessment and Plan documented above with any addition or exceptions noted below. Unfortunate 45 yo obese female with HX Covid PNA and prolonged hospital stay with 30 days intubation/mechanical ventilation. Patient was discharged to home currently sister and daughter caring for patient. Patient with stage 3 sacral decubitus s/p skin grafting. She declined diverting colostomy and today had hematuria secondary to healy trauma. Patient with bilateral foot drop and neuropathy . She will benefit from continued PT and restorative care. Rocephin for UTI and expectant management
[2020-06-19 01:13] LABS: Anion Gap 15 mmol/L (10-20); BUN (Urea Nitrogen) 10 mg/dL (7.0-18.7); Calc. Creatinine Clearance 0 mL/min (70-130); Calcium 9.8 mg/dL (7.8-10.44); Carbon Dioxide 25 mmol/L (22-29); Chloride 99 mmol/L (98-107); Estimated GFR-MDRD 46; Glucose 103 mg/dL (70-105); Potassium 4.7 mmol/L (3.5-5.1); Sodium 134 mmol/L (136-145)
[2020-06-19] MEDS ORDERED: Labetalol HCl 100 MG/20 ML VIAL SLOW IVP PRN (01:17)
[2020-06-19] MEDS ORDERED: Lactated Ringer's 500 ML IV SCH (01:30)
[2020-06-19 03:59] VITALS: BMI 45.6
[2020-06-19] MEDS: Gabapentin 300 MG CAP PO SCH ×3 (08:38→20:22)
[2020-06-19] MEDS: Metoprolol Tartrate 25 MG TAB PO SCH ×2 (08:38→20:24)
[2020-06-19] MEDS: Enoxaparin Sodium 40 MG/0.4 ML SYRINGE SC SCH (08:38)
[2020-06-19 13:09] LABS: #Basophils 0.1 thou/uL (0.0-0.2); #Eosinphils 0.8 thou/uL (0.0-0.7); #Lymphocytes 3.5 thou/uL (1.20-3.40); #Monocytes 0.8 thou/uL (0.11-0.59); #Neutrophils 5.2 thou/uL (1.40-6.50); %Eosinophils 7.6 % (0.0-10.0); %Lymphocytes 33.3 % (21.0-51.0); %Monocytes 7.8 % (0.0-10.0); %Neutrophils 50.4 % (42.0-75.0); Hemoglobin 11.2 g/dL (12.0-16.0); Mean Corpuscular HGB CONC 30.7 g/dL (32.0-36.0); Mean Corpuscular Hemoglobin 24.2 pg (27.0-31.0); Mean Platelet Volume 9.8 fL (7.4-10.4); Platelet Count 249 thou/uL (130-400); RBC Distribution Width 17.4 % (11.5-14.5); Red Blood Cell (RBC) Count 4.63 mill/uL (4.20-5.40); White Blood Cell (WBC) Count 10.4 thou/uL (4.8-10.8)
[2020-06-19 13:27] LABS: Anion Gap 13 mmol/L (10-20); BUN (Urea Nitrogen) 9 mg/dL (7.0-18.7); Calc. Creatinine Clearance 112 mL/min (70-130); Calcium 9.6 mg/dL (7.8-10.44); Carbon Dioxide 25 mmol/L (22-29); Chloride 102 mmol/L (98-107); Estimated GFR-MDRD 51; Glucose 105 mg/dL (70-105); Potassium 4.4 mmol/L (3.5-5.1); Sodium 136 mmol/L (136-145)
[2020-06-20] MEDS: cefTRIAXone\\ROCEPHIN 1 GM in Sodium Chloride 0.9% 100 ML IVPB SCH (00:09)
[2020-06-20] MEDS: HYDROcodone/Acetaminophen 10/325 mg Tablet PO PRN (06:02)
--- NOTE | 2020-06-20 06:22 | PDOC.FM ---
- Subjective Subjective: Pt doing well this morning. Awake and alert, no complaints. Tolerating diet. Able to stand but not able to walk due to foot drop/ neuropathy. Pt states she was told she was going to get HH and PT home services after leaving [facility], but she was never called back about it so she never received any services. - Objective Vital Signs & Weight: Vital Signs (12 hours) Temp Pulse Resp BP Pulse Ox 06/19/20 20:00 97.9 F 78 18 117/80 96 Weight Admit Weight 136.078 kg Weight 136.078 kg Result Diagrams: 06/19/20 12:58 06/19/20 12:58 Phys Exam - Physical Examination Constitutional: NAD Neck: supple Respiratory: no wheezing, clear to auscultation bilateral Cardiovascular: RRR, no significant murmur Gastrointestinal: soft, non-tender, no distention decreased sensation of b/l feet, decreased plantar and dorsiflexion b/l Psychiatric: normal affect, A&O x 3 Dx/Plan - Plan Plan: 45 yo F that is bedbound complaining of gross hematuria following dislodgment of healy catheter UTI associated with healy catheter -UA: blood, LE, WBC -WBC 13.4, afebrile, all other vitals wnl -Healy catheter exchanged in ED -Rocephin CHERI -Cr 1.36, downtrending -continue to monitor Bedbound, dependence of ADLs -Consult CM concerning possible HH due to patent's concern that daughter is unable to safely care for patient given the extent of her daily care requirements. Sacral ulcer -Aware, clean and dry on admission -Currently taking clindamycin, will continue -Wound care consulted -home med: norco 10, prn pain -will add miralax prn for constipation 2/2 opioid use Bilateral LE neuropathy -Present since discharge following extended hospitalization. Has left patient unable to bear weight and bed bound. 3/5 strength in LE b/l -Continue home meds -PT, will discuss adding AFOs. Pt is motivated to work with PT to gain mobility she lost 2/2 deconditioning due to prolonged COVID hospital stay HTN -Continue home meds -labetalol prn GERD -Continue home meds Depression -Continue home meds DVTPPx: lovenox Diet: Regular Code: FULL PCP: Marie Dispo: eLOS <48 hours pending improvement of Cr and discussion with CM about home health Addendum - Attending - Attending Attestation Date/Time: 06/20/20 6002 I personally evaluated the patient and discussed the management with Dr. Carias I agree with the History, Examination, Assessment and Plan documented above with any addition or exceptions noted below. Patient with severe deconditioning s/p prolonged hospitalization with Covid SARS 2 s/p skin grafting stage 3 sacral pressure wound. and bilateral foot drop. She would benefit from HH and PT for continued rehabilitation. Patient motivated and excellent candidate for continued recovery.
[2020-06-20] MEDS ORDERED: Senokot 8.6 MG TAB PO PRN (09:00)
[2020-06-20] MEDS ORDERED: Polyethylene Glycol 3350 17 GM Packet PO SCH (09:00)
[2020-06-20] MEDS: diphenhydrAMINE 25 MG CAP PO PRN ×2 (09:29→15:08)
[2020-06-20] MEDS: Gabapentin 300 MG CAP PO SCH ×3 (09:29→20:55)
[2020-06-20] MEDS: Metoprolol Tartrate 25 MG TAB PO SCH ×2 (09:30→20:55)
[2020-06-20] MEDS: Enoxaparin Sodium 40 MG/0.4 ML SYRINGE SC SCH (09:30)
[2020-06-21] MEDS: cefTRIAXone\\ROCEPHIN 1 GM in Sodium Chloride 0.9% 100 ML IVPB SCH (00:03)
[2020-06-21] MEDS: HYDROcodone/Acetaminophen 10/325 mg Tablet PO PRN (00:10)
[2020-06-21] MEDS: diphenhydrAMINE 25 MG CAP PO PRN ×3 (04:56→23:21)
--- NOTE | 2020-06-21 06:07 | PDOC.FM ---
- Subjective Subjective: Pt resting comfortably. Was a little down today due to loss of family member yesterday. Says she is ready to go home but does understand the importance of getting HH and wound vac set up. - Objective Vital Signs & Weight: Vital Signs (12 hours) Temp Pulse Resp BP Pulse Ox 06/21/20 04:00 98.1 F 73 20 133/84 92 L 06/20/20 23:45 98.0 F 75 20 121/84 98 06/20/20 19:28 97.8 F 66 20 118/82 91 L Weight Admit Weight 136.078 kg Weight 136.078 kg I&O: 06/19/20 06/20/20 06/21/20 06:59 06:59 06:59 Intake Total 480 Output Total 1250 1400 Balance -1250 -920 Result Diagrams: 06/19/20 12:58 06/21/20 05:58 Phys Exam - Physical Examination Constitutional: NAD Neck: supple Respiratory: no wheezing, clear to auscultation bilateral Cardiovascular: RRR, no significant murmur Gastrointestinal: soft, non-tender, no distention decreased motor and sensation in b/l LE Psychiatric: normal affect, A&O x 3 Dx/Plan - Plan Plan: 45 yo F that is bedbound complaining of gross hematuria following dislodgment of healy catheter UTI associated with healy catheter -UA: blood, LE, WBC. Pending UCx -WBC 13.4, afebrile, all other vitals wnl -Healy catheter exchanged in ED -Abx: Rocephin x3 days, will dc CHERI -Cr 1.22, downtrending -continue to monitor Bedbound, dependence of ADLs -Consult CM concerning possible HH due to patent's concern that daughter is unable to safely care for patient given the extent of her daily care requirements. Sacral ulcer -Aware, clean and dry on admission -abx: rocephin, likely to switch to po before discharge -Wound care consulted: outpt wound vac, will need f/u -home med: norco 10, prn pain -will add miralax prn for constipation 2/2 opioid use Bilateral LE neuropathy -Present since discharge following extended hospitalization. Has left patient unable to bear weight and bed bound. 3/5 strength in LE b/l -Continue home meds -PT, will discuss adding AFOs. Pt is motivated to work with PT to gain mobility she lost 2/2 deconditioning due to prolonged COVID hospital stay HTN -Continue home meds -labetalol prn GERD -Continue home meds Depression -Continue home meds DVTPPx: lovenox Diet: Regular Code: FULL PCP: Marie Dispo: Stable for discharge, pending CM arrangement of HH and wound vac Addendum - Attending - Attending Attestation Date/Time: 06/21/20 9644 I personally evaluated the patient and discussed the management with Dr. Carias. I agree with the History, Examination, Assessment and Plan documented above with any addition or exceptions noted below. d/c abx as UCX negative. continue wound care, PT/OT. Arranging HH, PT, OT, and wound care. she would benefit from rat exterminator placement given her multiple co morbidities but patient wants to try home healthcare first.
[2020-06-21 07:04] LABS: Anion Gap 13 mmol/L (10-20); BUN (Urea Nitrogen) 13 mg/dL (7.0-18.7); Calc. Creatinine Clearance 125 mL/min (70-130); Calcium 9.7 mg/dL (7.8-10.44); Carbon Dioxide 28 mmol/L (22-29); Chloride 102 mmol/L (98-107); Estimated GFR-MDRD 58; Glucose 108 mg/dL (70-105); Potassium 4.3 mmol/L (3.5-5.1); Sodium 139 mmol/L (136-145)
[2020-06-21] MEDS: Gabapentin 300 MG CAP PO SCH ×3 (10:04→19:44)
[2020-06-21] MEDS: Metoprolol Tartrate 25 MG TAB PO SCH ×2 (10:04→19:44)
[2020-06-21] MEDS: Enoxaparin Sodium 40 MG/0.4 ML SYRINGE SC SCH (10:04)
[2020-06-21] MEDS: Polyethylene Glycol 3350 17 GM Packet PO SCH (10:04)
[2020-06-22] MEDS: diphenhydrAMINE 25 MG CAP PO PRN ×4 (04:58→21:10)
--- NOTE | 2020-06-22 06:26 | PDOC.FM ---
- Subjective Subjective: Pt resting comfortably. She is ready to go home. Having bowel movements. No complaints overnight - Objective Vital Signs & Weight: Vital Signs (12 hours) Temp Pulse Resp BP Pulse Ox 06/21/20 19:24 98.1 F 72 15 115/77 93 L Weight Admit Weight 136.078 kg Weight 136.078 kg I&O: 06/20/20 06/21/20 06/22/20 06:59 06:59 06:59 Intake Total 480 480 Output Total 1250 1400 1000 Balance -1250 -920 -520 Result Diagrams: 06/19/20 12:58 06/21/20 05:58 Phys Exam - Physical Examination Constitutional: NAD Neck: supple Respiratory: no wheezing, clear to auscultation bilateral Cardiovascular: RRR, no significant murmur Gastrointestinal: soft, non-tender, no distention decreased motor and sensation of LE Dx/Plan - Plan Plan: 45 yo F that is bedbound complaining of gross hematuria following dislodgment of healy catheter UTI associated with healy catheter -resolved -Healy catheter exchanged in ED -completed abx course CHERI -Cr 1.22, downtrending -continue to monitor Bedbound, dependence of ADLs -Consult CM: HH Sacral ulcer -Aware, clean and dry on admission -Wound care consulted: outpt wound vac, will need f/u -home med: norco 10, prn pain -will add miralax prn for constipation 2/2 opioid use Bilateral LE neuropathy -Present since discharge following extended hospitalization. Has left patient unable to bear weight and bed bound. 3/5 strength in LE b/l -Continue home meds -needs PT/OT outpatient HTN -Continue home meds -labetalol prn GERD -Continue home meds Depression -Continue home meds DVTPPx: lovenox Diet: Regular Code: FULL PCP: Marie Dispo: Stable for discharge, pending CM arrangement of HH and wound vac Addendum - Attending - Attending Attestation Date/Time: 06/22/20 1350 I personally evaluated the patient and discussed the management with Dr. Carias. I agree with the History, Examination, Assessment and Plan documented above with any addition or exceptions noted below. awaiting Wound vac and HH arrangement.
[2020-06-22] MEDS: Polyethylene Glycol 3350 17 GM Packet PO SCH (08:44)
[2020-06-22] MEDS: Gabapentin 300 MG CAP PO SCH ×3 (08:45→21:10)
[2020-06-22] MEDS: Enoxaparin Sodium 40 MG/0.4 ML SYRINGE SC SCH (08:46)
[2020-06-22] MEDS: Metoprolol Tartrate 25 MG TAB PO SCH (21:10)
--- NOTE | 2020-06-23 06:17 | PDOC.FM ---
- Subjective Subjective: Pt resting comfortably. She states she wants to go home. We talked about her options because it seems like her insurance is not going to cover home health. She is considering going home but knows she is not able to take care of herself and she doesn't want to be a burden on her daughter. She also says she has been in a hospital/care facility for 6 months and does not really want to go back. She says the reason she left the most recent nursing facility was because her insurance only covered 25days. - Objective Vital Signs & Weight: Vital Signs (12 hours) Temp Pulse Resp BP Pulse Ox 06/22/20 19:59 98.3 F 79 18 121/83 95 Weight Admit Weight 136.078 kg Weight 136.078 kg I&O: 06/21/20 06/22/20 06/23/20 06:59 06:59 06:59 Intake Total 480 480 Output Total 1400 1000 900 Balance -920 -520 -900 Result Diagrams: 06/23/20 10:46 06/23/20 10:45 Phys Exam - Physical Examination Constitutional: NAD Neck: supple Respiratory: no wheezing, clear to auscultation bilateral Cardiovascular: RRR, no significant murmur Gastrointestinal: soft, non-tender, no distention b/l LE weakness Psychiatric: A&O x 3 Dx/Plan - Plan Plan: 45 yo F that is bedbound complaining of gross hematuria following dislodgment of healy catheter UTI associated with healy catheter -resolved -Healy catheter exchanged in ED -completed abx course CHERI -resolved Bedbound, dependence of ADLs -Consult CM: HH, patient has poor insurance coverage and doesn't seem likely she will qualify, pt may have to apply for disability Sacral ulcer -Aware, clean and dry on admission -Wound care consulted: outpt wound vac has been approved -home med: norco 10, prn pain -will add miralax prn for constipation 2/2 opioid use Bilateral LE neuropathy -Present since discharge following extended hospitalization. Has left patient unable to bear weight and bed bound. 3/5 strength in LE b/l -Continue home meds -needs PT/OT outpatient HTN -Continue home meds -labetalol prn GERD -Continue home meds Depression -Continue home meds DVTPPx: lovenox Diet: Regular Code: FULL PCP: [place] Dispo: Stable for discharge, pending CM arrangement of HH, wound vac approved Addendum - Attending - Attending Attestation Date/Time: 06/23/20 9991 I personally evaluated the patient and discussed the management with Dr. Carias. I agree with the History, Examination, Assessment and Plan documented above with any addition or exceptions noted below. Wound vac approved but no HH agency in network. If unable to go to rehab, will d/c home and patient will have to go to outpt wound care. She does not want to go to [facility] care. D/c today if not accepted to rehab.
[2020-06-23 07:40] VITALS: BP 111/75; TEMP 98.7
[2020-06-23] MEDS: Polyethylene Glycol 3350 17 GM Packet PO SCH (08:16)
[2020-06-23] MEDS: Metoprolol Tartrate 25 MG TAB PO SCH (09:18)
[2020-06-23] MEDS: Gabapentin 300 MG CAP PO SCH ×2 (09:18→15:21)
[2020-06-23] MEDS: Enoxaparin Sodium 40 MG/0.4 ML SYRINGE SC SCH (09:19)
[2020-06-23 11:05] LABS: #Basophils 0.1 thou/uL (0.0-0.2); #Eosinphils 0.6 thou/uL (0.0-0.7); #Lymphocytes 3.8 thou/uL (1.20-3.40); #Monocytes 0.7 thou/uL (0.11-0.59); #Neutrophils 8.2 thou/uL (1.40-6.50); %Eosinophils 4.4 % (0.0-10.0); %Lymphocytes 28.5 % (21.0-51.0); %Monocytes 5.4 % (0.0-10.0); %Neutrophils 60.7 % (42.0-75.0); Hemoglobin 12.2 g/dL (12.0-16.0); Mean Corpuscular HGB CONC 31.7 g/dL (32.0-36.0); Mean Corpuscular Hemoglobin 24.9 pg (27.0-31.0); Mean Corpuscular Volume 78.5 fL (78.0-98.0); Mean Platelet Volume 9.4 fL (7.4-10.4); Platelet Count 244 thou/uL (130-400); RBC Distribution Width 17.1 % (11.5-14.5); Red Blood Cell (RBC) Count 4.89 mill/uL (4.20-5.40); White Blood Cell (WBC) Count 13.5 thou/uL (4.8-10.8)
[2020-06-23 11:18] LABS: Anion Gap 12 mmol/L (10-20); BUN (Urea Nitrogen) 15 mg/dL (7.0-18.7); Calc. Creatinine Clearance 144 mL/min (70-130); Calcium 10.4 mg/dL (7.8-10.44); Carbon Dioxide 27 mmol/L (22-29); Chloride 100 mmol/L (98-107); Estimated GFR-MDRD 68; Glucose 98 mg/dL (70-105); Potassium 3.9 mmol/L (3.5-5.1); Sodium 135 mmol/L (136-145)
--- NOTE | 2020-06-25 05:56 | DIS ---
DATE OF ADMISSION: 06/19/2020 DATE OF DISCHARGE: 06/23/2020 ADMITTING ATTENDING: Faisal Medina MD. DISCHARGE ATTENDING: Sudhir Dalton MD. RESIDENT: Macy Carias, PGY-1. CONSULTS: None. PROCEDURES: None. PRIMARY DIAGNOSIS: Catheter associated urinary tract infection. SECONDARY DIAGNOSES: 1. Deconditioning secondary to history of COVID pneumonia. 2. Acute kidney injury. 3. Sacral ulcer. 4. Bilateral lower extremity neuropathy. 5. Hypertension. 6. Gastroesophageal reflux disease. 7. Depression. DISCHARGE MEDICATIONS: 1. Cyclobenzaprine 5 mg t.i.d. p.r.n. 2. Lasix 20 mg b.i.d. 3. Gabapentin 300 t.i.d. 4. [place] 10 q.6 hours p.r.n. 5. Hydromorphone 2 mg q.12 hours p.r.n. 6. Ativan 1 mg at bedtime. 7. Metoprolol 25 b.i.d. 8. Pantoprazole 40 daily. 9. Sertraline 50 daily. HISTORY OF PRESENT ILLNESS: The patient is a 45-year-old female who is bed bound due to severe neuropathy secondary to COVID pneumonia 6 months ago, presented to the ED via EMS complaining of gross hematuria. The patient has indwelling [place] catheter due to history of COVID pneumonia. The patient states her catheter dislodged while adjusting in bed shortly after noticed bright red blood in the catheter. Had some slight pain as well. UA showed 1+ blood, 250 leukocyte esterase, white blood cells, hyaline casts. The patient was treated in the ED with Rocephin. Rocephin was continued for total of 3 days. Rest of hospitalization, the patient was stable. No other adjustments to medications made. She remained in the hospital for a couple extra days trying to get home health worked out, because she is not able to take care of herself at home. She lives with her daughter, but her daughter works and has 2 children and feels she is not able to adequately take care of her mother. The patient's insurance does not have benefits for home health, so a decision was made for patient to transfer to rehab center. DISPOSITION: Stable. DISCHARGE INSTRUCTIONS: Location: Inpatient rehab, [facility]. Diet: Heart healthy. Activity: As tolerated. Follow up with PCP. Job ID: [id number]
== END 2020-06-23 19:02 | disposition home or self-care (01) ==
LOC: ERS 21:58 → T4-A 06-19 00:49
PROVIDERS: ADMIT Family Medicine; ATTEND Family Medicine
DX: T83.511A Infection and inflammatory reaction due to indwelling urethral catheter, initial encounter (principal); N39.0 Urinary tract infection, site not specified; N17.9 Acute kidney failure, unspecified; K21.9 Gastro-esophageal reflux disease without esophagitis; G62.9 Polyneuropathy, unspecified; F32.9 Major depressive disorder, single episode, unspecified; I10 Essential (primary) hypertension; L89.153 Pressure ulcer of sacral region, stage 3; E66.9 Obesity, unspecified; Z68.42 Body mass index [BMI] 45.0-49.9, adult; Z79.899 Other long term (current) drug therapy; Z88.0 Allergy status to penicillin; Z88.5 Allergy status to narcotic agent; Z86.19 Personal history of other infectious and parasitic diseases
CPT/HCPCS: 36415; 51702; 80048; 81003; 81015; 85025; 87086; 96365; 96366; 96372; G0378; J0696; J1650; J3490; Q0163

== ENCOUNTER 2020-08-26 15:58 | Emergency (ER) | payer BC, SELFPAY ==
[2020-08-26 16:57] LABS: #Basophils 0.1 thou/uL (0.0-0.2); #Eosinphils 0.7 thou/uL (0.0-0.7); #Lymphocytes 3.3 thou/uL (1.20-3.40); #Monocytes 0.4 thou/uL (0.11-0.59); #Neutrophils 7.9 thou/uL (1.40-6.50); %Basophils 0.7 % (0.0-1.0); %Eosinophils 5.9 % (0.0-10.0); %Lymphocytes 26.6 % (21.0-51.0); %Monocytes 3.4 % (0.0-10.0); %Neutrophils 63.4 % (42.0-75.0); Hemoglobin 12.3 g/dL (12.0-16.0); Mean Corpuscular Hemoglobin 24.9 pg (27.0-31.0); Mean Corpuscular Volume 80.3 fL (78.0-98.0); Mean Platelet Volume 8.4 fL (7.4-10.4); Platelet Count 242 thou/uL (130-400); RBC Distribution Width 15.9 % (11.5-14.5); Red Blood Cell (RBC) Count 4.93 mill/uL (4.20-5.40); White Blood Cell (WBC) Count 12.5 thou/uL (4.8-10.8)
[2020-08-26 17:17] LABS: ALT (SGPT) 11 U/L (8-55); AST (SGOT) 19 U/L (5-34); Albumin 3.5 g/dL (3.5-5.0); Alkaline Phosphatase 69 U/L (40-110); Anion Gap 15 mmol/L (10-20); BUN (Urea Nitrogen) 11 mg/dL (7.0-18.7); Bilirubin, Total 0.6 mg/dL (0.2-1.2); Calc. Creatinine Clearance 0 mL/min (70-130); Calcium 9.7 mg/dL (7.8-10.44); Carbon Dioxide 27 mmol/L (22-29); Chloride 101 mmol/L (98-107); Globulin 5.7 g/dL (2.4-3.5); Glucose 113 mg/dL (70-105); Potassium 3.6 mmol/L (3.5-5.1); Protein, Total 9.2 g/dL (6.0-8.3); Sodium 139 mmol/L (136-145)
[2020-08-26] MEDS ORDERED: HYDROcodone/Acetaminophen 5/325 mg Tablet ONE (18:39)
[2020-08-26 18:57] LABS: Bacteria/HPF 2+ HPF (None Seen); Bilirubin Negative (Negative); Blood, Urine Negative (Negative); Clarity Clear (Clear); Glucose, Urine (Dipstick) Normal (Negative); Ketone, Urine Negative (Negative); Leukocyte 250 Leu/uL (Negative); Nitrite Negative (Negative); Protein, Urine (Dipstick) 30 mg/dL (Neg-Trace); Squamous Epithelial 0-3 HPF (0-3); WBC/HPF Greater than 50 HPF (0-3)
== END 2020-08-26 21:04 | disposition home or self-care (01) ==
LOC: ERS 15:58
DX: N39.0 Urinary tract infection, site not specified (principal); I10 Essential (primary) hypertension; E66.9 Obesity, unspecified; Z79.899 Other long term (current) drug therapy
CPT/HCPCS: 36415; 51702; 80053; 81003; 81015; 85025

== ENCOUNTER 2020-10-01 13:27 | Emergency (ER) | payer BC, OTHER ==
[2020-10-01 14:35] LABS: #Basophils 0.1 thou/uL (0.0-0.2); #Eosinphils 0.4 thou/uL (0.0-0.7); #Lymphocytes 3.2 thou/uL (1.20-3.40); #Monocytes 0.6 thou/uL (0.11-0.59); #Neutrophils 9.7 thou/uL (1.40-6.50); %Basophils 0.7 % (0.0-1.0); %Lymphocytes 22.8 % (21.0-51.0); %Monocytes 4.2 % (0.0-10.0); %Neutrophils 69.3 % (42.0-75.0); Hemoglobin 11.6 g/dL (12.0-16.0); Mean Corpuscular Hemoglobin 25.1 pg (27.0-31.0); Mean Platelet Volume 8.5 fL (7.4-10.4); Platelet Count 255 thou/uL (130-400); RBC Distribution Width 15.1 % (11.5-14.5); Red Blood Cell (RBC) Count 4.63 mill/uL (4.20-5.40); White Blood Cell (WBC) Count 13.9 thou/uL (4.8-10.8)
[2020-10-01 15:00] LABS: ALT (SGPT) 9 U/L (8-55); AST (SGOT) 16 U/L (5-34); Albumin 3.3 g/dL (3.5-5.0); Alkaline Phosphatase 76 U/L (40-110); Anion Gap 15 mmol/L (10-20); BUN (Urea Nitrogen) 10 mg/dL (7.0-18.7); Bilirubin, Total 0.4 mg/dL (0.2-1.2); Calc. Creatinine Clearance 0 mL/min (70-130); Carbon Dioxide 27 mmol/L (22-29); Chloride 99 mmol/L (98-107); Globulin 5.4 g/dL (2.4-3.5); Glucose 97 mg/dL (70-105); Potassium 3.1 mmol/L (3.5-5.1); Protein, Total 8.7 g/dL (6.0-8.3); Sodium 138 mmol/L (136-145)
[2020-10-01 17:12] LABS: Bilirubin Negative (Negative); Blood, Urine Large (Negative); Glucose, Urine (Dipstick) Negative (Negative); Ketone, Urine Negative (Negative); Leukocyte Large (Negative); Nitrite Negative (Negative); Protein, Urine (Dipstick) 100 mg/dL (Neg-Trace); Urobilinogen 0.2 mg/dL (Less than 2); pH, Urine 6.5 (5.0-9.0)
[2020-10-01 17:15] LABS: Clarity Hazy (Clear)
[2020-10-01 17:34] LABS: Bacteria/HPF 2+ HPF (None Seen); WBC/HPF 21-50 HPF (0-3)
== END 2020-10-01 18:40 | disposition home or self-care (01) ==
LOC: ERS 13:27
DX: N30.00 Acute cystitis without hematuria (principal); Z46.6 Encounter for fitting and adjustment of urinary device; I10 Essential (primary) hypertension; E66.9 Obesity, unspecified; G62.9 Polyneuropathy, unspecified; Z86.16 Personal history of COVID-19; Z79.899 Other long term (current) drug therapy
CPT/HCPCS: 36415; 51702; 80053; 81003; 81015; 85025; 87086

== ENCOUNTER 2021-02-14 11:43 | Outpatient (CLI) | payer OTHER | END 2021-02-14 11:44 | disposition home or self-care (01) | LOC: BICRAD 11:43 | PROVIDERS: ATTEND Internal Medicine | DX: Z02.71 Encounter for disability determination (principal) | CPT/HCPCS: 71046 ==

== ENCOUNTER 2022-11-05 00:17 | Inpatient (IN) | payer MEDICARE, SELFPAY ==
[2022-11-05 01:17] LABS: #Eosinphils 0.2 thou/uL (0.0-0.7); #Lymphocytes 1.4 thou/uL (1.20-3.40); #Monocytes 0.6 thou/uL (0.11-0.59); #Neutrophils 11.7 thou/uL (1.40-6.50); %Basophils 0.1 % (0.0-1.0); %Eosinophils 1.8 % (0.0-10.0); %Lymphocytes 9.8 % (21.0-51.0); %Neutrophils 84.4 % (42.0-75.0); Mean Corpuscular Hemoglobin 21.6 pg (27.0-31.0); Mean Corpuscular Volume 72.1 fl (78.0-98.0); Mean Platelet Volume 5.3 fL (7.4-10.4); Platelet Count 182 10x3/uL (130-400); RBC Distribution Width 18.8 % (11.5-14.5); Red Blood Cell (RBC) Count 4.18 mill/uL (4.20-5.40); White Blood Cell (WBC) Count 13.9 10x3/uL (4.8-10.8)
[2022-11-05] MEDS ORDERED: Acetaminophen 500 MG TAB ONE (01:28)
[2022-11-05] MEDS ORDERED: Morphine 4 MG/ML VIAL ONE (01:28)
[2022-11-05] MEDS ORDERED: cefTRIAXone (ROCEPHIN) 2 GM VIAL ONE (01:28)
[2022-11-05] MEDS ORDERED: Ketorolac Tromethamine 30 MG/ML VIAL ONE (01:28)
[2022-11-05] MEDS ORDERED: Ondansetron PF 4 MG/2 ML Vial ONE (01:28)
[2022-11-05 01:32] LABS: ALT (SGPT) 8 U/L (8-55); AST (SGOT) 14 U/L (5-34); Albumin 3.1 g/dL (3.5-5.0); Alkaline Phosphatase 88 U/L (40-110); Anion Gap 12 mmol/L (10-20); BUN (Urea Nitrogen) 11 mg/dL (7.0-18.7); Bilirubin, Total 0.7 mg/dL (0.2-1.2); Calc. Creatinine Clearance 0 mL/min (70-130); Calcium 8.3 mg/dL (7.8-10.44); Carbon Dioxide 25 mmol/L (22-29); Chloride 100 mmol/L (98-107); Estimated GFR 70; Globulin 5.6 g/dL (2.4-3.5); Glucose 137 mg/dL (70-105); Lipase 22 U/L (8-78); Potassium 3.6 mmol/L (3.5-5.1); Protein, Total 8.7 g/dL (6.0-8.3); Sodium 133 mmol/L (136-145)
[2022-11-05] MEDS ORDERED: Acetaminophen 650 MG Suppository PR PRN (03:59)
[2022-11-05] MEDS ORDERED: Ondansetron PF 4 MG/2 ML Vial IVP PRN (03:59)
[2022-11-05] MEDS ORDERED: Azithromycin 500 MG VIAL ONE (04:47)
[2022-11-05 05:47] LABS: SARS-CoV-2 NAA Rapid Test Not Detected (NotDetected)
[2022-11-05 06:33] LABS: Iron Binding Capacity, Total 330 mcg/dL (265-497)
[2022-11-05 06:34] LABS: Iron 34 ug/dL (50-170)
[2022-11-05] MEDS: Albuterol 200 PUFF (6.7GM INHALER) INH SCH ×2 (07:18→11:05)
[2022-11-05] MEDS: Pantoprazole 40 MG VIAL IVP SCH ×2 (08:22→08:54)
[2022-11-05] MEDS: Acetaminophen 325 MG TAB PO PRN ×3 (08:23→21:39)
[2022-11-05] MEDS ORDERED: Labetalol HCl 100 MG/20 ML VIAL SLOW IVP PRN (09:32)
[2022-11-05] MEDS ORDERED: Ipratropium/Albuterol 3 ML NEB NEB SCH ×2 (09:45→14:30)
[2022-11-05] MEDS ORDERED: D5 1/2 NS w/20 mEq KCL 1,000 ML IV SCH (09:45)
[2022-11-05 09:56] LABS: Actual Bicarbonate (HCO3a) 24.6 mEq/L (22-28); Base Excess (BEa) -4.8 mEq/L (-2.0 to +3.0); Calcium, Ionized (arterial) 1.11 mmol/L (1.12-1.30); Carboxyhemoglobin (COHb) 0.5 gm% (0.0-3.0); Hemoglobin (Hb) 10.8 g/dL (12.0-16.0); O2 Tension (PaO2), arterial 170.1 mmHg (80.0-100.0); Potassium - ABG Lab 4.17 mmol/L (3.70-5.30)
[2022-11-05 10:01] LABS: Puncture Site Right Radial; pH, Arterial 7.16 (7.35-7.45)
[2022-11-05 10:02] LABS: ALV-art Gradient 455.025 mmHg (0-20)
[2022-11-05] MEDS: D5 1/2 NS w/20 mEq KCL 1,000 ML IV SCH (10:55)
[2022-11-05] MEDS ORDERED: Magnesium 2 GM/50 ML(in water) 2 GM in Premix Bag 1 BAG IVPB SCH (11:00)
[2022-11-05 11:27] LABS: Hemoglobin 10.6 g/dL (12.0-16.0); Mean Corpuscular HGB CONC 27.9 g/dL (32.0-36.0); Mean Corpuscular Hemoglobin 20.8 pg (27.0-31.0); Mean Corpuscular Volume 74.7 fl (78.0-98.0); RBC Distribution Width 19.4 % (11.5-14.5); Red Blood Cell (RBC) Count 5.11 mill/uL (4.20-5.40)
[2022-11-05] MEDS ORDERED: Electrolyte Replacement Protocol 1 EACH FS SCH (11:30)
[2022-11-05 11:48] LABS: Anion Gap 18 mmol/L (10-20); BUN (Urea Nitrogen) 11 mg/dL (7.0-18.7); Calc. Creatinine Clearance 178 mL/min (70-130); Calcium 8.2 mg/dL (7.8-10.44); Carbon Dioxide 15 mmol/L (22-29); Chloride 105 mmol/L (98-107); Estimated GFR 62; Glucose 123 mg/dL (70-105); Magnesium 1.5 mg/dL (1.6-2.6); Sodium 133 mmol/L (136-145)
[2022-11-05] MEDS ORDERED: Electrolyte Replacement Protocol FS PRN (12:00)
[2022-11-05 12:01] LABS: Troponin I Less than 0.010 ng/mL (< 0.028)
[2022-11-05 12:20] LABS: Band 12 % (5-11); Lymphocytes 4 % (21-51); MDiff Complete? YES; Mean Platelet Volume 6.4 fL (7.4-10.4); Monocytes 4 % (0-10); Neutrophil 80 % (42-75); Platelet Count 189 10x3/uL (130-400); Platelet Morphology Comment Appears Adequate; White Blood Cell (WBC) Count 22.9 10x3/uL (4.8-10.8)
[2022-11-05 12:22] LABS: Actual Bicarbonate (HCO3v) 24 mEq/L (22-28); Base Excess -2.8 mEq/L (-2.0 to +3.0); Calcium, Ionized (venous) 0.97 mmol/L (1.16-1.32); Chloride (VBG) 103 mmol/L (98-106); Hemoglobin (Hb) 10.5 g/dL (11.7-16.0); Potassium (VBG) 4.11 mmol/L (3.70-5.30); pH (venous) 7.28 (7.32-7.43)
[2022-11-05 12:44] LABS: Bacteria/HPF None Seen HPF (None Seen); Bilirubin Negative (Negative); Blood, Urine Trace (Negative); Clarity Clear (Clear); Glucose, Urine (Dipstick) Normal (Negative); Ketone, Urine Negative (Negative); Leukocyte Negative Leu/uL (Negative); Nitrite Negative (Negative); Protein, Urine (Dipstick) 50 mg/dL (Neg-Trace); RBC/HPF 0-3 HPF (0-3); Squamous Epithelial 0-3 HPF (0-3); WBC/HPF 0-3 HPF (0-3); pH, Urine 5.5 (5.0-9.0)
[2022-11-05 13:20] LABS: Legionella Urinary Ag Negative (Negative)
[2022-11-05 13:21] LABS: Strep pneumo Urine Ag NEGATIVE (NEGATIVE)
[2022-11-05] MEDS: Ondansetron PF 4 MG/2 ML Vial IVP SCH ×2 (13:56→20:15)
[2022-11-05] MEDS: Promethazine HCl 25 MG in Sodium Chloride 0.9% 50 ML IVPB SCH ×2 (14:04→21:41)
[2022-11-05] MEDS ORDERED: Ipratropium/Albuterol 3 ML NEB NEB PRN (15:00)
[2022-11-05] MEDS: Mometasone 200 MCG/Formoterol 5 MCG 120 PUFF INHALER INH SCH (18:27)
[2022-11-05] MEDS ORDERED: Lactated Ringer's 500 ML IV SCH ×2 (18:30→23:30)
[2022-11-05] MEDS ORDERED: hydrALAZINE 20 MG/ML VIAL ONE (18:41)
[2022-11-05 19:54] LABS: Lactic Acid 0.9 mmol/L (0.5-2.2)
[2022-11-05 19:58] LABS: Anion Gap 9 mmol/L (10-20); BUN (Urea Nitrogen) 11 mg/dL (7.0-18.7); Calc. Creatinine Clearance 195 mL/min (70-130); Calcium 7.7 mg/dL (7.8-10.44); Carbon Dioxide 26 mmol/L (22-29); Chloride 103 mmol/L (98-107); Estimated GFR 70; Glucose 121 mg/dL (70-105); Potassium 4.2 mmol/L (3.5-5.1); Sodium 134 mmol/L (136-145)
[2022-11-05] MEDS: cefTRIAXone\\ROCEPHIN 1 GM in Sodium Chloride 0.9% 100 ML IVPB SCH (20:14)
[2022-11-05] MEDS: Guaifenesin DM 100-10/5 ML UDCUP PER TUBE PRN (21:20)
[2022-11-05] MEDS: Azithromycin 500 MG in Sodium Chloride 0.9% 250 ML 250 ML IVPB SCH (23:04)
[2022-11-06] MEDS ORDERED: cefTRIAXone\\ROCEPHIN 1 GM in Sodium Chloride 0.9% 100 ML IVPB SCH (02:00)
[2022-11-06] MEDS: Ondansetron PF 4 MG/2 ML Vial IVP SCH ×4 (02:26→17:47)
[2022-11-06] MEDS ORDERED: Calcium Carbonate 500 MG ChewTAB PO PRN (02:51)
[2022-11-06] MEDS ORDERED: Metoclopramide HCl 10 MG/2 ML VIAL IVP SCH (03:45)
[2022-11-06] MEDS: D5 1/2 NS w/20 mEq KCL 1,000 ML IV SCH (03:56)
[2022-11-06 04:00] LABS: #Eosinphils 0.1 thou/uL (0.0-0.7); #Lymphocytes 1.4 thou/uL (1.20-3.40); #Monocytes 0.8 thou/uL (0.11-0.59); #Neutrophils 18.3 thou/uL (1.40-6.50); %Basophils 0.1 % (0.0-1.0); %Eosinophils 0.5 % (0.0-10.0); %Lymphocytes 6.7 % (21.0-51.0); %Neutrophils 88.8 % (42.0-75.0); Hemoglobin 8.1 g/dL (12.0-16.0); Mean Corpuscular HGB CONC 28.5 g/dL (32.0-36.0); Mean Corpuscular Hemoglobin 21.2 pg (27.0-31.0); Mean Corpuscular Volume 74.1 fl (78.0-98.0); Mean Platelet Volume 5.5 fL (7.4-10.4); Platelet Count 169 10x3/uL (130-400); RBC Distribution Width 18.8 % (11.5-14.5); Red Blood Cell (RBC) Count 3.84 mill/uL (4.20-5.40); White Blood Cell (WBC) Count 20.7 10x3/uL (4.8-10.8)
[2022-11-06 04:16] LABS: Phosphorus 2.7 mg/dL (2.3-4.7)
[2022-11-06 04:18] LABS: Anion Gap 11 mmol/L (10-20); BUN (Urea Nitrogen) 13 mg/dL (7.0-18.7); Calc. Creatinine Clearance 201 mL/min (70-130); Calcium 7.9 mg/dL (7.8-10.44); Carbon Dioxide 24 mmol/L (22-29); Chloride 105 mmol/L (98-107); Estimated GFR 73; Glucose 112 mg/dL (70-105); Magnesium 1.9 mg/dL (1.6-2.6); Potassium 4.4 mmol/L (3.5-5.1); Sodium 136 mmol/L (136-145)
[2022-11-06] MEDS ORDERED: Azithromycin 500 MG in Sodium Chloride 0.9% 250 ML 250 ML IVPB SCH (06:00)
[2022-11-06 06:35] LABS: Actual Bicarbonate (HCO3v) 29 mEq/L (22-28); Base Excess 1.1 mEq/L (-2.0 to +3.0); Calcium, Ionized (venous) 1.07 mmol/L (1.16-1.32); Chloride (VBG) 103 mmol/L (98-106); Hemoglobin (Hb) 9.4 g/dL (11.7-16.0); Sodium 135.1 mmol/L (133-146); pH (venous) 7.26 (7.32-7.43)
[2022-11-06] MEDS ORDERED: Magnesium 2 GM/50 ML(in water) 2 GM in Premix Bag 1 BAG IVPB SCH (08:00)
[2022-11-06] MEDS: Mometasone 200 MCG/Formoterol 5 MCG 120 PUFF INHALER INH SCH ×2 (08:22→19:24)
[2022-11-06] MEDS: Pantoprazole 40 MG VIAL IVP SCH (08:38)
[2022-11-06] MEDS: Acetaminophen 325 MG TAB PO PRN ×2 (13:24→20:12)
[2022-11-06] MEDS: Metoclopramide HCl 10 MG/2 ML VIAL IVP SCH ×2 (13:27→21:07)
[2022-11-06 15:07] LABS: Actual Bicarbonate (HCO3v) 28 mEq/L (22-28); Base Excess 0.4 mEq/L (-2.0 to +3.0); Calcium, Ionized (venous) 1.14 mmol/L (1.16-1.32); Chloride (VBG) 103 mmol/L (98-106); Hemoglobin (Hb) 8.2 g/dL (11.7-16.0); Potassium (VBG) 4.39 mmol/L (3.70-5.30); Sodium 135.1 mmol/L (133-146); pH (venous) 7.27 (7.32-7.43)
[2022-11-06 15:08] LABS: CO2 Tension 70.3 mmHg (35.0-45.0)
[2022-11-06] MEDS: cefTRIAXone\\ROCEPHIN 1 GM in Sodium Chloride 0.9% 100 ML IVPB SCH (20:10)
[2022-11-06] MEDS: Azithromycin 500 MG in Sodium Chloride 0.9% 250 ML 250 ML IVPB SCH (20:12)
[2022-11-07] MEDS: D5 1/2 NS w/20 mEq KCL 1,000 ML IV SCH ×2 (01:24→21:13)
[2022-11-07 04:35] LABS: #Eosinphils 0.1 thou/uL (0.0-0.7); #Monocytes 0.6 thou/uL (0.11-0.59); #Neutrophils 8.3 thou/uL (1.40-6.50); %Basophils 0.1 % (0.0-1.0); %Eosinophils 0.9 % (0.0-10.0); %Lymphocytes 18.1 % (21.0-51.0); %Monocytes 5.3 % (0.0-10.0); %Neutrophils 75.6 % (42.0-75.0); Hemoglobin 7.6 g/dL (12.0-16.0); Mean Corpuscular HGB CONC 28.2 g/dL (32.0-36.0); Mean Corpuscular Hemoglobin 20.9 pg (27.0-31.0); Mean Corpuscular Volume 74.2 fl (78.0-98.0); Mean Platelet Volume 5.8 fL (7.4-10.4); Platelet Count 171 10x3/uL (130-400); RBC Distribution Width 18.8 % (11.5-14.5); Red Blood Cell (RBC) Count 3.63 mill/uL (4.20-5.40)
[2022-11-07 04:47] LABS: Anion Gap 10 mmol/L (10-20); BUN (Urea Nitrogen) 13 mg/dL (7.0-18.7); Calc. Creatinine Clearance 231 mL/min (70-130); Calcium 8.2 mg/dL (7.8-10.44); Carbon Dioxide 27 mmol/L (22-29); Chloride 103 mmol/L (98-107); Estimated GFR 82; Glucose 102 mg/dL (70-105); Potassium 4.5 mmol/L (3.5-5.1); Sodium 135 mmol/L (136-145)
[2022-11-07] MEDS: Metoclopramide HCl 10 MG/2 ML VIAL IVP SCH ×3 (05:22→21:17)
[2022-11-07] MEDS: Pantoprazole 40 MG VIAL IVP SCH (07:56)
[2022-11-07] MEDS: Mometasone 200 MCG/Formoterol 5 MCG 120 PUFF INHALER INH SCH ×2 (08:16→19:14)
[2022-11-07] MEDS: Acetaminophen 325 MG TAB PO PRN ×2 (09:33→21:12)
[2022-11-07] MEDS: Ondansetron ODT 4 MG TAB PO PRN (09:34)
[2022-11-07] MEDS: cefTRIAXone\\ROCEPHIN 1 GM in Sodium Chloride 0.9% 100 ML IVPB SCH (21:11)
[2022-11-07] MEDS: Azithromycin 500 MG in Sodium Chloride 0.9% 250 ML 250 ML IVPB SCH (21:41)
[2022-11-08] MEDS: Metoclopramide HCl 10 MG/2 ML VIAL IVP SCH ×3 (06:14→21:48)
[2022-11-08] MEDS: Pantoprazole 40 MG VIAL IVP SCH (09:43)
[2022-11-08] MEDS: NIFEdipine XL 30 MG TAB PO SCH (09:43)
[2022-11-08] MEDS: Acetaminophen 325 MG TAB PO PRN ×2 (10:10→21:48)
[2022-11-08] MEDS: Mometasone 200 MCG/Formoterol 5 MCG 120 PUFF INHALER INH SCH ×2 (10:52→19:34)
[2022-11-08] MEDS: Ondansetron ODT 4 MG TAB PO PRN (11:41)
[2022-11-08] MEDS: D5 1/2 NS w/20 mEq KCL 1,000 ML IV SCH (15:16)
[2022-11-08] MEDS: cefTRIAXone\\ROCEPHIN 1 GM in Sodium Chloride 0.9% 100 ML IVPB SCH (21:48)
[2022-11-09] MEDS: Azithromycin 500 MG in Sodium Chloride 0.9% 250 ML 250 ML IVPB SCH (00:54)
[2022-11-09] MEDS: Metoclopramide HCl 10 MG/2 ML VIAL IVP SCH ×3 (04:50→21:22)
[2022-11-09] MEDS: Mometasone 200 MCG/Formoterol 5 MCG 120 PUFF INHALER INH SCH ×2 (08:09→19:09)
[2022-11-09] MEDS: NIFEdipine XL 30 MG TAB PO SCH (09:28)
[2022-11-09] MEDS: Acetaminophen 325 MG TAB PO PRN ×2 (09:29→21:29)
[2022-11-09] MEDS: Pantoprazole 40 MG VIAL IVP SCH (09:29)
[2022-11-09] MEDS: D5 1/2 NS w/20 mEq KCL 1,000 ML IV SCH (14:09)
[2022-11-10] MEDS: Metoclopramide HCl 10 MG/2 ML VIAL IVP SCH (05:41)
[2022-11-10] MEDS: Mometasone 200 MCG/Formoterol 5 MCG 120 PUFF INHALER INH SCH ×2 (07:10→21:36)
[2022-11-10] MEDS: NIFEdipine XL 30 MG TAB PO SCH (09:42)
[2022-11-10] MEDS: Pantoprazole 40 MG VIAL IVP SCH (09:43)
[2022-11-10] MEDS ORDERED: Simethicone Chewable 80 MG TAB PO PRN (12:36)
[2022-11-10] MEDS: D5 1/2 NS w/20 mEq KCL 1,000 ML IV SCH (13:18)
[2022-11-10] MEDS: Acetaminophen 325 MG TAB PO PRN (17:01)
[2022-11-10] MEDS: Oxymetazoline HCl 0.05% (30 ML BOT) NS SCH (19:59)
[2022-11-11] MEDS: Acetaminophen 325 MG TAB PO PRN ×2 (00:39→20:46)
[2022-11-11] MEDS: Mometasone 200 MCG/Formoterol 5 MCG 120 PUFF INHALER INH SCH ×2 (07:49→19:20)
[2022-11-11] MEDS: Oxymetazoline HCl 0.05% (30 ML BOT) NS SCH ×2 (08:11→20:47)
[2022-11-11] MEDS: NIFEdipine XL 30 MG TAB PO SCH (08:11)
[2022-11-12] MEDS: Acetaminophen 325 MG TAB PO PRN (06:07)
[2022-11-12] MEDS: Mometasone 200 MCG/Formoterol 5 MCG 120 PUFF INHALER INH SCH ×2 (07:34→18:04)
[2022-11-12] MEDS: Oxymetazoline HCl 0.05% (30 ML BOT) NS SCH ×3 (08:36→20:47)
[2022-11-12] MEDS: NIFEdipine XL 30 MG TAB PO SCH (08:36)
[2022-11-12 09:45] LABS: #Basophils 0.1 thou/uL (0.0-0.2); #Eosinphils 0.4 thou/uL (0.0-0.7); #Lymphocytes 2.9 thou/uL (1.20-3.40); #Monocytes 0.5 thou/uL (0.11-0.59); #Neutrophils 8.1 thou/uL (1.40-6.50); %Basophils 0.5 % (0.0-1.0); %Eosinophils 3.7 % (0.0-10.0); %Monocytes 4.4 % (0.0-10.0); %Neutrophils 67.4 % (42.0-75.0); Hemoglobin 8.7 g/dL (12.0-16.0); Mean Corpuscular HGB CONC 29.8 g/dL (32.0-36.0); Mean Corpuscular Hemoglobin 21.6 pg (27.0-31.0); Mean Corpuscular Volume 72.6 fl (78.0-98.0); Mean Platelet Volume 11.3 fL (7.4-10.4); Platelet Count 257 10x3/uL (130-400); RBC Distribution Width 19.3 % (11.5-14.5); Red Blood Cell (RBC) Count 4.01 mill/uL (4.20-5.40); White Blood Cell (WBC) Count 11.9 10x3/uL (4.8-10.8)
[2022-11-12 10:03] LABS: Anion Gap 11 mmol/L (10-20); BUN (Urea Nitrogen) 8 mg/dL (7.0-18.7); Calc. Creatinine Clearance 244 mL/min (70-130); Calcium 8.8 mg/dL (7.8-10.44); Carbon Dioxide 28 mmol/L (22-29); Chloride 101 mmol/L (98-107); Estimated GFR 89; Glucose 119 mg/dL (70-105); Potassium 3.1 mmol/L (3.5-5.1); Sodium 137 mmol/L (136-145)
[2022-11-12] MEDS ORDERED: Potassium Chloride 20 MEQ TAB PO SCH (11:00)
[2022-11-12] MEDS: Guaifenesin DM 100-10/5 ML UDCUP PER TUBE PRN (20:42)
[2022-11-13] MEDS: Guaifenesin DM 100-10/5 ML UDCUP PER TUBE PRN (00:35)
[2022-11-13] MEDS: NIFEdipine XL 30 MG TAB PO SCH (09:43)
[2022-11-13] MEDS: Oxymetazoline HCl 0.05% (30 ML BOT) NS SCH ×2 (09:44→20:55)
[2022-11-13] MEDS: Mometasone 200 MCG/Formoterol 5 MCG 120 PUFF INHALER INH SCH ×2 (13:36→18:46)
[2022-11-13] MEDS: Benzonatate 100 MG CAP PO SCH ×2 (15:54→20:55)
[2022-11-14] MEDS: Guaifenesin DM 100-10/5 ML UDCUP PER TUBE PRN (00:02)
[2022-11-14] MEDS: Mometasone 200 MCG/Formoterol 5 MCG 120 PUFF INHALER INH SCH ×2 (07:12→19:01)
[2022-11-14 08:51] LABS: Anion Gap 12 mmol/L (10-20); BUN (Urea Nitrogen) 11 mg/dL (7.0-18.7); Calc. Creatinine Clearance 176 mL/min (70-130); Calcium 8.5 mg/dL (7.8-10.44); Carbon Dioxide 28 mmol/L (22-29); Chloride 102 mmol/L (98-107); Estimated GFR 90; Glucose 96 mg/dL (70-105); Potassium 3.5 mmol/L (3.5-5.1); Sodium 138 mmol/L (136-145)
[2022-11-14] MEDS ORDERED: Potassium Chloride 20 MEQ TAB PO SCH (10:00)
[2022-11-14] MEDS: Benzonatate 100 MG CAP PO SCH ×3 (10:15→20:36)
[2022-11-14] MEDS: NIFEdipine XL 30 MG TAB PO SCH (10:15)
[2022-11-14 11:50] LABS: #Basophils 0.1 thou/uL (0.0-0.2); #Eosinphils 0.4 thou/uL (0.0-0.7); #Lymphocytes 2.8 thou/uL (1.20-3.40); #Monocytes 0.6 thou/uL (0.11-0.59); %Basophils 0.6 % (0.0-1.0); %Eosinophils 4.8 % (0.0-10.0); %Lymphocytes 31.5 % (21.0-51.0); %Monocytes 6.5 % (0.0-10.0); %Neutrophils 56.7 % (42.0-75.0); Hemoglobin 8.5 g/dL (12.0-16.0); MDiff Complete? YES; Mean Corpuscular HGB CONC 28.6 g/dL (32.0-36.0); Mean Corpuscular Hemoglobin 20.9 pg (27.0-31.0); Mean Corpuscular Volume 73.2 fl (78.0-98.0); Mean Platelet Volume 10.4 fL (7.4-10.4); Microcytosis SLIGHT = 6-15 cells (100X) (0-5/hpf); Platelet Count 240 10x3/uL (130-400); Platelet Morphology Comment Appears Adequate; Polychromasia MODERATE = 3-4 cells (100X) (0-2/hpf); RBC Distribution Width 19.9 % (11.5-14.5); Red Blood Cell (RBC) Count 4.06 mill/uL (4.20-5.40); White Blood Cell (WBC) Count 8.9 10x3/uL (4.8-10.8)
[2022-11-15 05:54] VITALS: BMI 60.6
[2022-11-15] MEDS: NIFEdipine XL 30 MG TAB PO SCH (09:17)
[2022-11-15] MEDS: Benzonatate 100 MG CAP PO SCH ×3 (09:18→20:43)
[2022-11-15] MEDS: Mometasone 200 MCG/Formoterol 5 MCG 120 PUFF INHALER INH SCH ×2 (11:26→18:24)
[2022-11-15 11:48] LABS: Bilirubin Negative (Negative); Blood, Urine Trace (Negative); Clarity Clear (Clear); Glucose, Urine (Dipstick) Normal (Negative); Ketone, Urine Negative (Negative); Leukocyte 250 Leu/uL (Negative); Nitrite Negative (Negative); Protein, Urine (Dipstick) 30 mg/dL (Neg-Trace); Specific Gravity, Urine 1.017 (1.002-1.036); Squamous Epithelial 0-3 HPF (0-3); Urobilinogen Normal mg/dL (Less than 2); pH, Urine 6.5 (5.0-9.0)
[2022-11-15 11:57] LABS: Bacteria/HPF Rare-Few HPF (None Seen)
[2022-11-15] MEDS: cefTRIAXone\\ROCEPHIN 2 GM in Sodium Chloride 0.9% 100 ML IVPB SCH (17:15)
[2022-11-16] MEDS: Mometasone 200 MCG/Formoterol 5 MCG 120 PUFF INHALER INH SCH ×2 (07:21→18:48)
[2022-11-16] MEDS: Benzonatate 100 MG CAP PO SCH ×3 (07:57→20:45)
[2022-11-16] MEDS: NIFEdipine XL 30 MG TAB PO SCH (07:57)
[2022-11-16] MEDS: cefTRIAXone\\ROCEPHIN 2 GM in Sodium Chloride 0.9% 100 ML IVPB SCH (15:42)
[2022-11-17 07:19] VITALS: TEMP 98.3
[2022-11-17] MEDS: Mometasone 200 MCG/Formoterol 5 MCG 120 PUFF INHALER INH SCH (07:23)
[2022-11-17] MEDS: Benzonatate 100 MG CAP PO SCH (08:29)
[2022-11-17] MEDS: NIFEdipine XL 30 MG TAB PO SCH (08:29)
[2022-11-17 08:31] VITALS: BP 123/70
== END 2022-11-17 11:26 | disposition home or self-care (01) | DRG 871 ==
LOC: ERS 00:17 → T4-B 03:00 → CCU 10:14 → IMCU/EMU 11-08 14:31 → T4-A 11-12 15:00
PROVIDERS: ADMIT Student in an Organized Health Care Education/Training Program; ATTEND Hospitalist
PROC: 3E03329 Introduction of Other Anti-infective into Peripheral Vein, Percutaneous Approach (ICD-10-PCS; principal; 2022-11-05)
PROC: 4A133R1 Monitoring of Arterial Saturation, Peripheral, Percutaneous Approach (ICD-10-PCS; 2022-11-05)
PROC: 5A09557 Assistance with Respiratory Ventilation, Greater than 96 Consecutive Hours, Continuous Positive Airway Pressure (ICD-10-PCS; 2022-11-06)
DX: A41.9 Sepsis, unspecified organism (principal); G93.41 Metabolic encephalopathy; L89.153 Pressure ulcer of sacral region, stage 3; J18.9 Pneumonia, unspecified organism; J96.21 Acute and chronic respiratory failure with hypoxia; J96.22 Acute and chronic respiratory failure with hypercapnia; E87.1 Hypo-osmolality and hyponatremia; E66.2 Morbid (severe) obesity with alveolar hypoventilation; E87.20 Acidosis, unspecified; Z68.44 Body mass index [BMI] 60.0-69.9, adult; Z20.822 Contact with and (suspected) exposure to COVID-19; D64.9 Anemia, unspecified; Z86.16 Personal history of COVID-19; Z98.51 Tubal ligation status; Z88.5 Allergy status to narcotic agent; Z88.1 Allergy status to other antibiotic agents; Z79.899 Other long term (current) drug therapy
CPT/HCPCS: 36415; 36416; 71045; 80048; 80053; 81001; 82728; 82805; 83540; 83550; 83605; 83690; 83735; 83880; 84100; 84145; 84443; 84484; 85025; 86140; 87040; 87070; 87076; 87086; 87149; 87205; 87449; 87899; 93005; 93306; 94660; 96374; 96375; 97139; C9113; J0456; J0696; J1650; J1885; J2270; J2405; J2550; J2765; J3475; J3480; J3490; J7050; J7120; J7620; Q0162

== ENCOUNTER 2023-03-23 23:12 | Emergency (ER) | payer MEDICARE ==
[2023-03-24] MEDS ORDERED: Acetaminophen 500 MG TAB ONE (00:38)
[2023-03-24 01:37] LABS: SARS-CoV-2 NAA Rapid Test DETECTED (NotDetected)
== END 2023-03-24 00:51 | disposition home or self-care (01) ==
LOC: ERS 23:12
DX: B34.9 Viral infection, unspecified (principal); I10 Essential (primary) hypertension; Z20.822 Contact with and (suspected) exposure to COVID-19
CPT/HCPCS: 99283

== ENCOUNTER 2023-04-19 13:05 | Outpatient (CLI) | payer OTHER | END 2023-04-19 13:06 | disposition home or self-care (01) | LOC: DTY/OP 13:05 | PROVIDERS: ATTEND Surgery | DX: E66.01 Morbid (severe) obesity due to excess calories (principal); Z68.43 Body mass index [BMI] 50.0-59.9, adult | CPT/HCPCS: 97802 ==

== ENCOUNTER → 2024-07-19 | Emergency (ER) | payer OTHER, MEDICAID ==
[~2024-07-19] MED LIST changes: +Dexamethasone 10 MG/ML VIAL ONE; -ISOVUE-370 76%-LOCM 1 ML ONE
== END ==
LOC: ERS 07-19 10:10
DX: J02.9 Acute pharyngitis, unspecified (principal); J06.9 Acute upper respiratory infection, unspecified; R11.2 Nausea with vomiting, unspecified; I10 Essential (primary) hypertension; G62.9 Polyneuropathy, unspecified; E66.9 Obesity, unspecified; G47.30 Sleep apnea, unspecified
CPT/HCPCS: 87428; 99284